=== PATIENT | female | born 1940 | race Caucasian/White ===

== ENCOUNTER 2016-07-09 10:11 | Inpatient (IN) ==
[2016-07-09] MEDS ORDERED: Ondansetron 4 MG/2 ML VIAL IVP ONE (10:26)
--- NOTE | 2016-07-09 10:42 | Emergency Department Note ---
Disposition Clinical Impression: Pneumonia Qualifiers: Pneumonia type: due to unspecified organism Laterality: left Lung location: lower lobe of lung Qualified Code(s): J18.1 - Lobar pneumonia, unspecified organism UTI (urinary tract infection) Qualifiers: Urinary tract infection type: acute cystitis Hematuria presence: without hematuria Qualified Code(s): N30.00 - Acute cystitis without hematuria Disposition: Admitted As Inpatient Condition: Fair Referrals: NO,PCP [Primary Care Provider] - Forms: ED Satisfaction Letter Weakness HPI - General Chief complaint: ED Weakness Stated complaint: weakness Time Seen by Provider: 07/09/16 10:14 Source: patient, EMS Limitations: no limitations Nursing Notes Reviewed: Yes Vital Signs Reviewed: Yes - History of Present Illness HPI Narrative: Patient is a dialysis patient has missed her Saturday and Saturday appointments. She states that she was not feeling well on Saturday that she is just weak and tired so she did not go to that appointment. She began vomiting on Saturday and subsequently missed her Saturday appointment. She is presenting today with generalized weakness nausea and vomiting. Patient also reports a productive cough with a white sputum. Pain Scale: 0 - Related Data Home Medications Medication Instructions Recorded Confirmed Aspirin [Adult Low Dose Aspirin EC] 81 mg PO DAILY 08/09/15 09/07/15 Budesonide/Formoterol 160/4.5 2 puff IH BIDR 08/09/15 09/07/15 [Symbicort 160/4.5] Citalopram [CeleXA] 20 mg PO QAM 08/09/15 09/07/15 Ferrous Sulfate 325 mg PO QAM 08/09/15 09/07/15 Insulin NPH Hum/Reg Insulin Hm 10 unit SQ QPM 08/09/15 09/07/15 [Novolin 70-30 100 Unit/ml Vial] Insulin NPH Hum/Reg Insulin Hm 15 unit SQ QAM 08/09/15 09/07/15 [Novolin 70-30 100 Unit/ml Vial] Ipratropium/Albuterol Neb [Duoneb] 3 ml IH QID PRN 08/09/15 09/07/15 Nadolol [Corgard] 40 mg PO QAM 08/09/15 09/07/15 [place]-3/Dha/Epa/Fish Oil [Fish Oil 1 each PO QPM 03/15/16 04/13/16 1,000 mg Softgel] Oxycodone HCl [Oxaydo] 5 mg PO Q6H PRN 08/09/15 09/07/15 Pantoprazole Sodium [Protonix] 40 mg PO QAM 08/09/15 09/07/15 Pravastatin Sodium [Pravachol] 80 mg PO QAM 08/09/15 09/07/15 Thiamine HCl [Vitamin B-1] 50 mg PO QAM 08/09/15 09/07/15 Vitamin E Mixed [Vitamin E] 400 unit PO QPM 08/09/15 09/07/15 Previous Rx's Medication Instructions Recorded Amlodipine [Norvasc] 10 mg PO DAILY 30 Days 08/18/15 Calcitriol [Rocaltrol] 0.25 mcg PO MOWEFR #12 capsule 09/21/15 Calcium Acetate [Phos-LO] 667 mg PO TIDWM #90 capsule 09/21/15 Epoetin Man[place] [Procrit] 10,000 unit SQ 3XW vial 09/21/15 Allergies Allergy/AdvReac Type Severity Reaction Status Date / Time Cyclobenzaprine Allergy Hives Verified 07/09/16 13:39 [From Flexeril] levofloxacin [From Levaquin] Allergy Hives Verified 07/09/16 13:39 rofecoxib [From Vioxx] Allergy Hives Verified 07/09/16 13:39 Review of Systems: Patient appears tired and frequently does not answer any many questions. All systems ED: reviewed and negative except as stated. Constitutional: Reports: weakness (Generalized since Saturday). Denies: fever Cardiovascular: Reports: edema (Lower extremity). Denies: chest pain, syncope Respiratory: Reports: cough (Productive since this morning. Yellow sputum), dyspnea (Today.), sputum production Gastrointestinal: Reports: nausea, vomiting, hematochezia (One episode on Saturday). Denies: abdominal pain, diarrhea Genitourinary: Denies: urgency, frequency, hematuria (Patient states she does still make urine. She has no urinary complaints.) Musculoskeletal: Denies: back pain, neck pain Integumentary: Denies: rash Neurological: Denies: headache Past Medical History - Past Medical History Medical history: Reports: arthritis, asthma, CHF, coronary artery disease, DVT, diabetes, hyperlipidemia, hypertension, renal disease Surgical history: Reports: cataract, pacemaker/AICD, other Psychiatric history: Reports: no psych history - Social History Smoking Status: Former smoker Smokeless Tobacco Status: No Alcohol use: Reports: none Drug use: Reports: none Physical Exam Patient is tired appearing. - General Limitations: no limitations General appearance: alert, in no apparent distress - Head Head exam: atraumatic, normocephalic, normal inspection - Eye Eye exam: Present: normal appearance, PERRL, EOMI. Absent: scleral icterus - ENT ENT exam: normal exam, normal oropharynx, mucous membranes moist - Neck Neck exam: Present: normal inspection, full ROM, trachea midline. Absent: tenderness, lymphadenopathy - Chest Chest inspection: Present: normal inspection, symmetric chest wall rise - Respiratory Respiratory exam: Present: other (Rhonchi left lower lobe). Absent: respiratory distress - Cardiovascular Cardiovascular exam: Present: regular rate, normal rhythm, normal heart sounds - Abdominal Exam Abdominal exam: Present: soft, Non-Tender. Absent: tenderness, distention, guarding, rebound, rigidity, organomegaly - Extremities Exam Extremities exam: Present: normal capillary refill, pedal edema (Bilaterally). Absent: calf tenderness - Back Exam Back exam: Present: normal inspection, full ROM. Absent: tenderness - Neurological Exam Neurological exam: Present: alert - Psychiatric Psychiatric exam: Present: normal affect, normal mood - Skin Skin exam: Present: warm, dry, intact, normal color. Absent: rash, cyanosis Course Course Narrative: Patient resting in bed in no apparent distress. She is a hemodialysis patient and Mr. Saturday and Saturday appointments. States on Saturday she just felt weak and did not go. On Saturday she began to vomit. She is presenting now for the nausea and vomiting. After her arrived he advised that she was somewhat short of breath at home this morning. Her left lung lower lobe has significant rhonchi on auscultation. She does have a left lower lobe pneumonia on chest x-ray. She also has a UTI. Pt has poor peripheral IV access. We will place a port a cath, and begin antibiotics. - Reevaluation(s) Reevaluation #1: Patient has left lower lobe pneumonia. We will start her on antibiotics for healthcare acquired. She also has a UTI. We plan to admit patient. Time: 11:07 Reevaluation #2: Patient's potassium is high. She has missed the last 2 dialysis appointments. We will give patient albuterol as well as Kayexalate. We will admit patient. Time: 13:27 - Consultations Consultation #1: Discussed with Dr. Medina who has accepted patient in stable condition. He is made aware that the Hemoccult has not been collected while she is down here. We discussed the possibility of nurses on the floor collecting this and sending it. Time: 13:44 Vital Signs Temperature 97.9 F 07/09/16 10:13 Pulse Rate 68 07/09/16 10:13 Respiratory Rate 16 07/09/16 10:13 Blood Pressure 119/57 07/09/16 10:13 O2 Sat by Pulse Oximetry 93 L 07/09/16 10:13 Temperature 97.9 F 07/09/16 10:13 Pulse Rate 59 07/09/16 12:41 Respiratory Rate 16 07/09/16 12:41 Blood Pressure 134/78 07/09/16 12:41 O2 Sat by Pulse Oximetry 95 07/09/16 12:41 Oxygen Delivery Oxygen Delivery Nasal Cannula Weakness - Medical Records Medical records reviewed: Yes I reviewed the patient's medical records. - Lab Data Lab results reviewed: Yes I reviewed the patient's lab results. Result diagrams: 07/09/16 12:30 07/09/16 12:30 Lab Results 07/09/16 07/09/16 07/09/16 Range/Units 10:50 11:22 11:22 WBC (4.3-11.1) K/mcL RBC (3.82-4.97) M/mcL Hgb (11.5-15.4) g/dL Hct (35.3-44.9) % MCV (83.0-100.0) fL MCH (28.0-33.3) pg MCHC (31.6-35.5) g/dL RDW (11.5-14.5) % Plt Count (140-400) K/mcL MPV (9.4-12.4) fL Immature Gran % (0-4) % Seg Neutrophils % % Lymphocytes % % Monocytes % % Eosinophils % % Basophils % % Neutrophils # (1.6-8.9) K/mcL Lymphocytes # (0.6-4.6) K/mcL Monocytes # (0.0-1.3) K/mcL Eosinophils # (0.0-0.6) K/mcL Basophils # (0.0-0.2) K/mcL PT (9.4-12.1) Seconds INR APTT (26.0-36.0) Seconds Sodium (136-145) mEq/L Potassium (3.5-4.5) mEq/L Chloride (98-109) mEq/L Carbon Dioxide (19-29) mEq/L BUN (7-20) mg/dL Creatinine (0.57-1.11) mg/dL Est GFR ( Amer) (> 60) Est GFR (Non-Af Amer) (> 60) BUN/Creatinine Ratio (6-26) Glucose (70-99) mg/dL Calculated Osmolality (280-300) Lactic Acid (0.5-2.2) mmol/L Calcium (8.6-10.8) mg/dL Phosphorus (2.3-4.7) mg/dL Magnesium (1.6-2.6) mg/dL Total Bilirubin (0.2-1.2) mg/dL AST (5-34) Units/L ALT (0-55) Units/L Alkaline Phosphatase (38-126) Units/L Troponin I 0.02 (0-0.03) ng/mL Serum Total Protein (6.0-8.3) g/dL Albumin (3.5-5.0) g/dL Globulin (2.4-3.5) g/dL Albumin/Globulin Ratio (1.1-2.2) Urine Color Yellow (Yellow) Urine Clarity Turbid A (Clear) Urine pH 6.0 (5.0-8.0) pH Units Ur Specific [place] 1.012 (1.010-1.025) Urine Protein >=300 H (Neg-Trace) mg/dL Urine Glucose (UA) Normal (Normal) mg/dL Urine Ketones Trace H (Negative) mg/dL Urine Blood Large H (Negative) Urine Nitrite Negative (Negative) Urine Bilirubin Negative (Negative) Urine Urobilinogen Normal (Normal) mg/dL Ur Leukocyte Esterase Large H (Negative) Urine Microscopic RBC 30-50 H (0-3) per hpf Urine Microscopic WBC TNTC H (0-3) per hpf Ur Squamous Epith Cells Many H (None-Few) per lpf Urine Bacteria Many H (None-Few) per hpf Hyaline Casts Test Not Performed Urine Yeast Test Not Performed Ur Culture Indicated? YES A (NO) Specimen Rejected Clotted 07/09/16 07/09/16 07/09/16 Range/Units 12:30 12:30 12:30 WBC 19.2 H (4.3-11.1) K/mcL RBC 3.38 L (3.82-4.97) M/mcL Hgb 11.6 (11.5-15.4) g/dL Hct 35.8 (35.3-44.9) % MCV 105.9 H (83.0-100.0) fL MCH 34.3 H (28.0-33.3) pg MCHC 32.4 (31.6-35.5) g/dL RDW 13.2 (11.5-14.5) % Plt Count 269 (140-400) K/mcL MPV 9.5 (9.4-12.4) fL Immature Gran % 0.6 (0-4) % Seg Neutrophils % 87.2 % Lymphocytes % 5.2 % Monocytes % 4.9 % Eosinophils % 1.9 % Basophils % 0.2 % Neutrophils # 16.8 H (1.6-8.9) K/mcL Lymphocytes # 1.0 (0.6-4.6) K/mcL Monocytes # 0.9 (0.0-1.3) K/mcL Eosinophils # 0.4 (0.0-0.6) K/mcL Basophils # 0.0 (0.0-0.2) K/mcL PT (9.4-12.1) Seconds INR APTT (26.0-36.0) Seconds Sodium 126 L (136-145) mEq/L Potassium 6.9 H* (3.5-4.5) mEq/L Chloride 88 L (98-109) mEq/L Carbon Dioxide 18 L (19-29) mEq/L BUN 107 H (7-20) mg/dL Creatinine 8.74 H (0.57-1.11) mg/dL Est GFR ( Amer) 5 L (> 60) Est GFR (Non-Af Amer) 4 L (> 60) BUN/Creatinine Ratio 12 (6-26) Glucose 70 (70-99) mg/dL Calculated Osmolality 294 (280-300) Lactic Acid 0.2 L (0.5-2.2) mmol/L Calcium 9.0 (8.6-10.8) mg/dL Phosphorus 8.6 H (2.3-4.7) mg/dL Magnesium 2.4 (1.6-2.6) mg/dL Total Bilirubin 0.6 (0.2-1.2) mg/dL AST 16 (5-34) Units/L ALT 20 (0-55) Units/L Alkaline Phosphatase 111 (38-126) Units/L Troponin I (0-0.03) ng/mL Serum Total Protein 6.9 (6.0-8.3) g/dL Albumin 2.9 L (3.5-5.0) g/dL Globulin 4.0 H (2.4-3.5) g/dL Albumin/Globulin Ratio 0.7 L (1.1-2.2) Urine Color (Yellow) Urine Clarity (Clear) Urine pH (5.0-8.0) pH Units Ur Specific [place] (1.010-1.025) Urine Protein (Neg-Trace) mg/dL Urine Glucose (UA) (Normal) mg/dL Urine Ketones (Negative) mg/dL Urine Blood (Negative) Urine Nitrite (Negative) Urine Bilirubin (Negative) Urine Urobilinogen (Normal) mg/dL Ur Leukocyte Esterase (Negative) Urine Microscopic RBC (0-3) per hpf Urine Microscopic WBC (0-3) per hpf Ur Squamous Epith Cells (None-Few) per lpf Urine Bacteria (None-Few) per hpf Hyaline Casts Urine Yeast Ur Culture Indicated? (NO) Specimen Rejected 07/09/16 Range/Units 12:30 WBC (4.3-11.1) K/mcL RBC (3.82-4.97) M/mcL Hgb (11.5-15.4) g/dL Hct (35.3-44.9) % MCV (83.0-100.0) fL MCH (28.0-33.3) pg MCHC (31.6-35.5) g/dL RDW (11.5-14.5) % Plt Count (140-400) K/mcL MPV (9.4-12.4) fL Immature Gran % (0-4) % Seg Neutrophils % % Lymphocytes % % Monocytes % % Eosinophils % % Basophils % % Neutrophils # (1.6-8.9) K/mcL Lymphocytes # (0.6-4.6) K/mcL Monocytes # (0.0-1.3) K/mcL Eosinophils # (0.0-0.6) K/mcL Basophils # (0.0-0.2) K/mcL PT 10.6 (9.4-12.1) Seconds INR 1.0 APTT 33.0 (26.0-36.0) Seconds Sodium (136-145) mEq/L Potassium (3.5-4.5) mEq/L Chloride (98-109) mEq/L Carbon Dioxide (19-29) mEq/L BUN (7-20) mg/dL Creatinine (0.57-1.11) mg/dL Est GFR ( Amer) (> 60) Est GFR (Non-Af Amer) (> 60) BUN/Creatinine Ratio (6-26) Glucose (70-99) mg/dL Calculated Osmolality (280-300) Lactic Acid (0.5-2.2) mmol/L Calcium (8.6-10.8) mg/dL Phosphorus (2.3-4.7) mg/dL Magnesium (1.6-2.6) mg/dL Total Bilirubin (0.2-1.2) mg/dL AST (5-34) Units/L ALT (0-55) Units/L Alkaline Phosphatase (38-126) Units/L Troponin I (0-0.03) ng/mL Serum Total Protein (6.0-8.3) g/dL Albumin (3.5-5.0) g/dL Globulin (2.4-3.5) g/dL Albumin/Globulin Ratio (1.1-2.2) Urine Color (Yellow) Urine Clarity (Clear) Urine pH (5.0-8.0) pH Units Ur Specific [place] (1.010-1.025) Urine Protein (Neg-Trace) mg/dL Urine Glucose (UA) (Normal) mg/dL Urine Ketones (Negative) mg/dL Urine Blood (Negative) Urine Nitrite (Negative) Urine Bilirubin (Negative) Urine Urobilinogen (Normal) mg/dL Ur Leukocyte Esterase (Negative) Urine Microscopic RBC (0-3) per hpf Urine Microscopic WBC (0-3) per hpf Ur Squamous Epith Cells (None-Few) per lpf Urine Bacteria (None-Few) per hpf Hyaline Casts Urine Yeast Ur Culture Indicated? (NO) Specimen Rejected - Radiology Data Radiology results reviewed: Yes I reviewed the patient's radiology results. - EKG Data EKG attestation: Yes I reviewed and interpreted this EKG. EKG results narrative: Atrially paced EKG. Reticular rate of 59. GA interval is 235. QRS duration is 117. QT is 457. QTC is 457. No ST elevation or depression noted mildly peaked T waves noted. No signs of acute ischemia. T waves are increased in amplitude since previous EKG dated 09/06/2015.
[2016-07-09 10:58] LABS: Bilirubin,Urine Negative (Negative); Blood,Urine Large (Negative); Clarity,Urine Turbid (Clear); Color,Urine Yellow (Yellow); Glucose,Urine (UA) Normal (Normal); Ketones,Urine Trace mg/dL (Negative); Leukocyte Esterase,Urine Large (Negative); Nitrite,Urine Negative (Negative); Protein,Urine >=300 mg/dL (Neg-Trace); Specific Gravity,Urine 1.012 (1.010-1.025); Urobilinogen,Urine Normal (Normal)
[2016-07-09 11:00] LABS: Bacteria,Urine Many per hpf (None-Few); RBC,Urine 30-50 per hpf (0-3); Squamous Epithelial Cell,Urine Many per lpf (None-Few); WBC,Urine TNTC per hpf (0-3)
[2016-07-09] MEDS ORDERED: Tdap (Boostrix) Vaccine 0.5 ML SYRINGE IM ONE (11:00)
[2016-07-09] MEDS ORDERED: Vancomycin 1,250 MG in D5% in Water 250 ML IVPB ONE (11:04)
[2016-07-09] MEDS ORDERED: Piperacillin/Tazobactam 3.375 GM in D5% in Water (Mini-Bag+) 100 ML IVPB ONE (11:04)
[2016-07-09] MEDS ORDERED: Levofloxacin 750 MG/150 ML 750 MG/150 ML BAG IVPB ONE (11:04)
--- NOTE | 2016-07-09 11:43 | Emergency Department Note ---
Disposition Clinical Impression: Pneumonia, UTI (urinary tract infection) Disposition: Admitted As Inpatient Condition: Fair General Adult HPI - General Chief complaint: ED Weakness Stated complaint: weakness Time Seen by Provider: 07/09/16 10:14 Source: patient, EMS Limitations: no limitations - History of Present Illness Pain Scale: 0 - Related Data Home Medications Medication Instructions Recorded Confirmed Aspirin [Adult Low Dose Aspirin EC] 81 mg PO DAILY 08/09/15 07/09/16 Budesonide/Formoterol 160/4.5 2 puff IH BIDR 08/09/15 07/09/16 [Symbicort 160/4.5] Citalopram [CeleXA] 20 mg PO QAM 08/09/15 07/09/16 Ferrous Sulfate 325 mg PO QAM 08/09/15 07/09/16 Insulin NPH Hum/Reg Insulin Hm 10 unit SQ QPM 08/09/15 07/09/16 [Novolin 70-30 100 Unit/ml Vial] Insulin NPH Hum/Reg Insulin Hm 15 unit SQ QAM 08/09/15 07/09/16 [Novolin 70-30 100 Unit/ml Vial] Ipratropium/Albuterol Neb [Duoneb] 3 ml IH QID PRN 08/09/15 07/09/16 Nadolol [Corgard] 40 mg PO QAM 08/09/15 07/09/16 [place]-3/Dha/Epa/Fish Oil [Fish Oil 1 each PO QPM 08/09/15 07/09/16 1,000 mg Softgel] Oxycodone HCl [Oxaydo] 5 mg PO Q6H PRN 08/09/15 07/09/16 Pantoprazole Sodium [Protonix] 40 mg PO QAM 08/09/15 07/09/16 Pravastatin Sodium [Pravachol] 80 mg PO QAM 08/09/15 07/09/16 Thiamine HCl [Vitamin B-1] 50 mg PO QAM 08/09/15 07/09/16 Vitamin E Mixed [Vitamin E] 400 unit PO QPM 08/09/15 07/09/16 Previous Rx's Medication Instructions Recorded Amlodipine [Norvasc] 10 mg PO DAILY 30 Days 08/18/15 Calcitriol [Rocaltrol] 0.25 mcg PO MOWEFR #12 capsule 09/21/15 Calcium Acetate [Phos-LO] 667 mg PO TIDWM #90 capsule 09/21/15 Epoetin Manolo [Procrit] 10,000 unit SQ 3XW vial 09/21/15 Allergies Allergy/AdvReac Type Severity Reaction Status Date / Time Cyclobenzaprine Allergy Hives Verified 07/09/16 13:39 [From Flexeril] levofloxacin [From Levaquin] Allergy Hives Verified 07/09/16 13:39 rofecoxib [From Vioxx] Allergy Hives Verified 07/09/16 13:39 Past Medical History - Past Medical History Medical history: Reports: arthritis, asthma, CHF, coronary artery disease, DVT, diabetes, hyperlipidemia, hypertension, renal disease Surgical history: Reports: cataract, pacemaker/AICD, other Psychiatric history: Reports: no psych history - Social History Smoking Status: Former smoker Smokeless Tobacco Status: No Alcohol use: Reports: none Drug use: Reports: none Physical Exam - General Limitations: no limitations General appearance: alert Course - Reevaluation(s) Reevaluation #1: I saw the patient with the resident, Dr. Burr. Patient presents with generalized weakness. On exam we hear a moist cough. Her lungs are coarse breath sounds. Her vital signs are okay but she looks like she does not feel well. She complains of shortness of breath. Workup shows a pneumonia on the chest x-ray. This is consistent with her physical presentation. We started antibiotics. We need to arrange admission. Time: 11:42 Reevaluation #2: The hospitalist came down to the emergency department and assumed care of the patient. He ordered some extra labs and a repeat EKG. He spoke with dialysis and nephrology and was able to arrange emergent dialysis for this hyperkalemia and hypertension. Patient was transported over to emergent in-house dialysis. At the time she left she appeared a bit short of breath but was alert and oriented and had a systolic blood pressure over 90. We had to get the blood pressure from the left wrist because that was the only available spot. Time: 15:27 Vital Signs Temperature 97.9 F 07/09/16 10:13 Pulse Rate 68 07/09/16 10:13 Respiratory Rate 16 07/09/16 10:13 Blood Pressure 119/57 07/09/16 10:13 O2 Sat by Pulse Oximetry 93 L 07/09/16 10:13 Temperature 97.9 F 07/09/16 10:13 Pulse Rate 74 07/09/16 14:02 Respiratory Rate 16 07/09/16 15:19 Blood Pressure 92/61 07/09/16 15:19 O2 Sat by Pulse Oximetry 94 L 07/09/16 14:02 Oxygen Delivery Oxygen Delivery Nasal Cannula Medical Decision Making - Lab Data Result diagrams: 07/09/16 12:30 07/09/16 12:30 Lab Results 07/09/16 07/09/16 07/09/16 Range/Units 10:50 11:22 11:22 WBC (4.3-11.1) K/mcL RBC (3.82-4.97) M/mcL Hgb (11.5-15.4) g/dL Hct (35.3-44.9) % MCV (83.0-100.0) fL MCH (28.0-33.3) pg MCHC (31.6-35.5) g/dL RDW (11.5-14.5) % Plt Count (140-400) K/mcL MPV (9.4-12.4) fL Immature Gran % (0-4) % Seg Neutrophils % % Lymphocytes % % Monocytes % % Eosinophils % % Basophils % % Neutrophils # (1.6-8.9) K/mcL Lymphocytes # (0.6-4.6) K/mcL Monocytes # (0.0-1.3) K/mcL Eosinophils # (0.0-0.6) K/mcL Basophils # (0.0-0.2) K/mcL PT (9.4-12.1) Seconds INR APTT (26.0-36.0) Seconds Sodium (136-145) mEq/L Potassium (3.5-4.5) mEq/L Chloride (98-109) mEq/L Carbon Dioxide (19-29) mEq/L BUN (7-20) mg/dL Creatinine (0.57-1.11) mg/dL Est GFR ( Amer) (> 60) Est GFR (Non-Af Amer) (> 60) BUN/Creatinine Ratio (6-26) Glucose (70-99) mg/dL Calculated Osmolality (280-300) Lactic Acid (0.5-2.2) mmol/L Calcium (8.6-10.8) mg/dL Phosphorus (2.3-4.7) mg/dL Magnesium (1.6-2.6) mg/dL Total Bilirubin (0.2-1.2) mg/dL AST (5-34) Units/L ALT (0-55) Units/L Alkaline Phosphatase (38-126) Units/L Troponin I 0.02 (0-0.03) ng/mL Serum Total Protein (6.0-8.3) g/dL Albumin (3.5-5.0) g/dL Globulin (2.4-3.5) g/dL Albumin/Globulin Ratio (1.1-2.2) Urine Color Yellow (Yellow) Urine Clarity Turbid A (Clear) Urine pH 6.0 (5.0-8.0) pH Units Ur Specific [place] 1.012 (1.010-1.025) Urine Protein >=300 H (Neg-Trace) mg/dL Urine Glucose (UA) Normal (Normal) mg/dL Urine Ketones Trace H (Negative) mg/dL Urine Blood Large H (Negative) Urine Nitrite Negative (Negative) Urine Bilirubin Negative (Negative) Urine Urobilinogen Normal (Normal) mg/dL Ur Leukocyte Esterase Large H (Negative) Urine Microscopic RBC 30-50 H (0-3) per hpf Urine Microscopic WBC TNTC H (0-3) per hpf Ur Squamous Epith Cells Many H (None-Few) per lpf Urine Bacteria Many H (None-Few) per hpf Hyaline Casts Test Not Performed Urine Yeast Test Not Performed Ur Culture Indicated? YES A (NO) Specimen Rejected Clotted 07/09/16 07/09/16 07/09/16 Range/Units 12:30 12:30 12:30 WBC 19.2 H (4.3-11.1) K/mcL RBC 3.38 L (3.82-4.97) M/mcL Hgb 11.6 (11.5-15.4) g/dL Hct 35.8 (35.3-44.9) % MCV 105.9 H (83.0-100.0) fL MCH 34.3 H (28.0-33.3) pg MCHC 32.4 (31.6-35.5) g/dL RDW 13.2 (11.5-14.5) % Plt Count 269 (140-400) K/mcL MPV 9.5 (9.4-12.4) fL Immature Gran % 0.6 (0-4) % Seg Neutrophils % 87.2 % Lymphocytes % 5.2 % Monocytes % 4.9 % Eosinophils % 1.9 % Basophils % 0.2 % Neutrophils # 16.8 H (1.6-8.9) K/mcL Lymphocytes # 1.0 (0.6-4.6) K/mcL Monocytes # 0.9 (0.0-1.3) K/mcL Eosinophils # 0.4 (0.0-0.6) K/mcL Basophils # 0.0 (0.0-0.2) K/mcL PT (9.4-12.1) Seconds INR APTT (26.0-36.0) Seconds Sodium 126 L (136-145) mEq/L Potassium 6.9 H* (3.5-4.5) mEq/L Chloride 88 L (98-109) mEq/L Carbon Dioxide 18 L (19-29) mEq/L BUN 107 H (7-20) mg/dL Creatinine 8.74 H (0.57-1.11) mg/dL Est GFR ( Amer) 5 L (> 60) Est GFR (Non-Af Amer) 4 L (> 60) BUN/Creatinine Ratio 12 (6-26) Glucose 70 (70-99) mg/dL Calculated Osmolality 294 (280-300) Lactic Acid 0.2 L (0.5-2.2) mmol/L Calcium 9.0 (8.6-10.8) mg/dL Phosphorus 8.6 H (2.3-4.7) mg/dL Magnesium 2.4 (1.6-2.6) mg/dL Total Bilirubin 0.6 (0.2-1.2) mg/dL AST 16 (5-34) Units/L ALT 20 (0-55) Units/L Alkaline Phosphatase 111 (38-126) Units/L Troponin I (0-0.03) ng/mL Serum Total Protein 6.9 (6.0-8.3) g/dL Albumin 2.9 L (3.5-5.0) g/dL Globulin 4.0 H (2.4-3.5) g/dL Albumin/Globulin Ratio 0.7 L (1.1-2.2) Urine Color (Yellow) Urine Clarity (Clear) Urine pH (5.0-8.0) pH Units Ur Specific [place] (1.010-1.025) Urine Protein (Neg-Trace) mg/dL Urine Glucose (UA) (Normal) mg/dL Urine Ketones (Negative) mg/dL Urine Blood (Negative) Urine Nitrite (Negative) Urine Bilirubin (Negative) Urine Urobilinogen (Normal) mg/dL Ur Leukocyte Esterase (Negative) Urine Microscopic RBC (0-3) per hpf Urine Microscopic WBC (0-3) per hpf Ur Squamous Epith Cells (None-Few) per lpf Urine Bacteria (None-Few) per hpf Hyaline Casts Urine Yeast Ur Culture Indicated? (NO) Specimen Rejected 07/09/16 Range/Units 12:30 WBC (4.3-11.1) K/mcL RBC (3.82-4.97) M/mcL Hgb (11.5-15.4) g/dL Hct (35.3-44.9) % MCV (83.0-100.0) fL MCH (28.0-33.3) pg MCHC (31.6-35.5) g/dL RDW (11.5-14.5) % Plt Count (140-400) K/mcL MPV (9.4-12.4) fL Immature Gran % (0-4) % Seg Neutrophils % % Lymphocytes % % Monocytes % % Eosinophils % % Basophils % % Neutrophils # (1.6-8.9) K/mcL Lymphocytes # (0.6-4.6) K/mcL Monocytes # (0.0-1.3) K/mcL Eosinophils # (0.0-0.6) K/mcL Basophils # (0.0-0.2) K/mcL PT 10.6 (9.4-12.1) Seconds INR 1.0 APTT 33.0 (26.0-36.0) Seconds Sodium (136-145) mEq/L Potassium (3.5-4.5) mEq/L Chloride (98-109) mEq/L Carbon Dioxide (19-29) mEq/L BUN (7-20) mg/dL Creatinine (0.57-1.11) mg/dL Est GFR ( Amer) (> 60) Est GFR (Non-Af Amer) (> 60) BUN/Creatinine Ratio (6-26) Glucose (70-99) mg/dL Calculated Osmolality (280-300) Lactic Acid (0.5-2.2) mmol/L Calcium (8.6-10.8) mg/dL Phosphorus (2.3-4.7) mg/dL Magnesium (1.6-2.6) mg/dL Total Bilirubin (0.2-1.2) mg/dL AST (5-34) Units/L ALT (0-55) Units/L Alkaline Phosphatase (38-126) Units/L Troponin I (0-0.03) ng/mL Serum Total Protein (6.0-8.3) g/dL Albumin (3.5-5.0) g/dL Globulin (2.4-3.5) g/dL Albumin/Globulin Ratio (1.1-2.2) Urine Color (Yellow) Urine Clarity (Clear) Urine pH (5.0-8.0) pH Units Ur Specific [place] (1.010-1.025) Urine Protein (Neg-Trace) mg/dL Urine Glucose (UA) (Normal) mg/dL Urine Ketones (Negative) mg/dL Urine Blood (Negative) Urine Nitrite (Negative) Urine Bilirubin (Negative) Urine Urobilinogen (Normal) mg/dL Ur Leukocyte Esterase (Negative) Urine Microscopic RBC (0-3) per hpf Urine Microscopic WBC (0-3) per hpf Ur Squamous Epith Cells (None-Few) per lpf Urine Bacteria (None-Few) per hpf Hyaline Casts Urine Yeast Ur Culture Indicated? (NO) Specimen Rejected Attestation Statement - Attestation Attestation: I, Dr. Barahona, examined this patient [id number] and my medical decision- making was reviewed with Dr. Burr, Resident Physician. I agree with the documented findings, disposition and treatment plan as described except to the extent set forth below. Please see my progress notes for details.
[2016-07-09] MEDS ORDERED: Lidocaine -MPF 1% 2 ML VIAL ID PRN (12:26)
[2016-07-09 12:41] LABS: Basophils % 0.2 %; Eosinophils # 0.4 K/mcL (0.0-0.6); Eosinophils % 1.9 %; Hematocrit 35.8 % (35.3-44.9); Hemoglobin 11.6 g/dL (11.5-15.4); Immature Granulocytes % 0.6 % (0-4); Lymphocytes % 5.2 %; Mean Corpuscular HGB Conc 32.4 g/dL (31.6-35.5); Mean Corpuscular Hemoglobin 34.3 pg (28.0-33.3); Mean Corpuscular Volume 105.9 fL (83.0-100.0); Mean Platelet Volume 9.5 fL (9.4-12.4); Monocytes # 0.9 K/mcL (0.0-1.3); Monocytes % 4.9 %; Neutrophils # 16.8 K/mcL (1.6-8.9); Platelet Count 269 K/mcL (140-400); Red Blood Count 3.38 M/mcL (3.82-4.97); Red Cell Distribution Width 13.2 % (11.5-14.5); Segmented Neutrophils % 87.2 %
[2016-07-09 12:59] LABS: Albumin 2.9 g/dL (3.5-5.0); Albumin/Globulin Ratio 0.7 (1.1-2.2); Bilirubin,Total 0.6 mg/dL (0.2-1.2); Magnesium 2.4 mg/dL (1.6-2.6); Phosphorous 8.6 mg/dL (2.3-4.7); Total Protein 6.9 g/dL (6.0-8.3)
[2016-07-09 13:04] LABS: Potassium 6.9 mEq/L (3.5-4.5); Prothrombin Time 10.6 Seconds (9.4-12.1)
[2016-07-09] MEDS ORDERED: Albuterol 2.5 MG/3 ML NEBULIZER IH ONE (13:08)
[2016-07-09] MEDS ORDERED: Naloxone 0.4 MG/ML INJ IVP PRN (15:07)
[2016-07-09] MEDS ORDERED: 0.9 % Sodium Chloride 500 ML IVC ONE (15:10)
[2016-07-09] MEDS ORDERED: 0.9 % Sodium Chloride 250 ML IV PRN (15:22)
[2016-07-09] MEDS ORDERED: 0.9 % Sodium Chloride 1,000 ML PRIME SCH (15:30)
[2016-07-09] MEDS ORDERED: Dextrose Gel 15 GM PO PRN ×2 (15:40)
[2016-07-09] MEDS ORDERED: D5% in Water 1,000 ML IV PRN (15:40)
[2016-07-09] MEDS ORDERED: *HR* Dextrose 50 % in Water (Syg) 50 ML SYRINGE IVP PRN (15:40)
[2016-07-09] MEDS ORDERED: Vancomycin 1 EACH in D5% in Water 250 ML IVPB SCH (16:00)
[2016-07-09] MEDS ORDERED: Cefepime HCl 1,000 MG in D5% in Water (Mini-Bag+) 100 ML IVPB ONE (16:00)
--- NOTE | 2016-07-09 16:36 | Internal Med History&Physical ---
Date of Encounter: 07/09/16 Time of Encounter: 15:53 Assessment and Plan (1) Pneumonia due to Gram-negative bacteria Current visit: Yes Status: Acute We will treat her with renally adjusted cefepime dosing for healthcare associated pneumonia. I cannot exclude MRSA and therefore will add vancomycin. Follow-up blood culture and sensitivities. (2) End-stage renal disease on hemodialysis Current visit: Yes Status: Acute Consult nephrology. I discussed the case with the coin machine service repairer seasonal clerk. Continue with hemodialysis. (3) Metabolic encephalopathy Current visit: Yes Status: Acute Nothing by mouth. Aspiration precautions. Fall precautions. (4) Uremia syndrome Current visit: Yes Status: Acute Patient is more somnolent on the has been complaining of nausea and decreased appetite all consistent with uremia and therefore she requires emergent hemodialysis. Hemodialysis was arranged emergently for this afternoon. During hemodialysis he she had an episode of hypotension and unresponsiveness and a rapid response was called. Blood glucose was 90 blood pressure initially was in the 80s systolic. I have given her 1 small bolus of normal saline and her blood pressure picked up and her mental status improved significantly to the point where she could recognize family members. Patient at that time was protecting her airway and did not require invasive ventilation. I decided to complete the dialysis session and monitor the patient closely on stepdown. Mrs. Hernandez is currently unstable and there is high probability of emergent and significant clinical decompensation with potential impairment of organ function including cardiovascular system and respiratory system. I have performed 55 minutes of critical care time which involved decision making of high complexity to assess, manipulate, and support vital organ system, in order to prevent further life threatening deterioration of the patient's condition. The time involved in the performance of any procedures was not counted toward critical care time. Critical care time was spent evaluating the patient several times throughout the day, reviewing EKGs, telemetry tracing, imaging studies and laboratory data, discussing the case with the emergency department physicians, and consultants, ordering medications and reevaluating for clinical response and making adjustments to her medication regimen. (5) DVT prophylaxis Current visit: No Status: Acute We will use heparin subcutaneous (6) Diabetes mellitus type 2, insulin dependent Current visit: No Status: Chronic Insulin sliding scale. Fingerstick blood glucose every 4 hours. (7) Essential (primary) hypertension Current visit: No Status: Chronic Hold her antihypertensives for now due to relative hypotension. Internal Medicine - H&P: HPI Chief complaint: Nausea and vomiting Admitted From: Emergency Dept Plans for Post Hospital Care: Home History of present illness: Ms. Hernandez is a 76 year old female with multiple medical comorbidities who was brought to the hospital for nausea vomiting and generalized weakness. She has a history of end-stage renal disease on hemodialysis Saturday however she is missed hemodialysis on Saturday and today again on Saturday because she was too weak and nauseated to go to dialysis. She presented to the hospital and she is currently somnolent and therefore history is limited. Additional history is obtained from the patient's . The patient has been having nausea and nonbloody vomitus and at baseline she is verbal and communicative however throughout the day today she became more somnolent and obtunded. Review of systems could not be obtained due to altered mental status Family history reviewed and found to be noncontributory to this acute presentation. Past Med Surg Social Fam HX - Past Medical History Medical history: arthritis, asthma, CHF, coronary artery disease, DVT, diabetes , hyperlipidemia, hypertension, renal disease Psychiatric history: no psych history - Past Surgical History Surgical History: cataract, pacemaker/AICD, other - Social History Smoking Status: Former smoker Smokeless Tobacco Status: No Alcohol use: none Drug use: none - Family History Mother Living Status: Hx Family Cardiac Disorders: Yes Hx Family Respiratory Disorders: No Hx Family Cancer: Yes (skin cancer) Hx Family GI Disorders: No Hx Family Endocrine Disorder: Yes (DM) Hx Family Neuromuscular Disorders: No Hx Family Neurologic Disorders: No Hx Family HEENT Disorders: No Hx Family Autoimmune Disorders: No Father Living Status: Hx Family Cardiac Disorders: No Hx Family Respiratory Disorders: Yes (black lung disease) Hx Family Cancer: No Hx Family GI Disorders: No Hx Family Endocrine Disorder: No Hx Family Neuromuscular Disorders: No Hx Family Neurologic Disorders: No Hx Family HEENT Disorders: No Hx Family Autoimmune Disorders: No Sister Living Status: Still Living Hx Family Cardiac Disorders: No Hx Family Respiratory Disorders: No Hx Family Cancer: No Hx Family GI Disorders: No Hx Family Endocrine Disorder: Yes (DM) Hx Family Neuromuscular Disorders: No Hx Family Neurologic Disorders: No Hx Family HEENT Disorders: No Hx Family Autoimmune Disorders: No Internal Medicine - H&P: Meds Aspirin [Adult Low Dose Aspirin EC] 81 mg PO DAILY 08/09/15 [History] Budesonide/Formoterol 160/4.5 [Symbicort 160/4.5] 2 puff IH BIDR 08/09/15 [ History] Citalopram [CeleXA] 20 mg PO QAM 08/09/15 [History] Ferrous Sulfate 325 mg PO QAM 08/09/15 [History] Insulin NPH Hum/Reg Insulin Hm [Novolin 70-30 100 Unit/ml Vial] 10 unit SQ QPM 08/09/15 [History] Insulin NPH Hum/Reg Insulin Hm [Novolin 70-30 100 Unit/ml Vial] 15 unit SQ QAM 08/09/15 [History] Ipratropium/Albuterol Neb [Duoneb] 3 ml IH QID PRN 08/09/15 [History] Nadolol [Corgard] 40 mg PO QAM 08/09/15 [History] Almyra-3/Dha/Epa/Fish Oil [Fish Oil 1,000 mg Softgel] 1 each PO QPM 08/09/15 [ History] Oxycodone HCl [Oxaydo] 5 mg PO Q6H PRN 08/09/15 [History] Pantoprazole Sodium [Protonix] 40 mg PO QAM 08/09/15 [History] Pravastatin Sodium [Pravachol] 80 mg PO QAM 08/09/15 [History] Thiamine HCl [Vitamin B-1] 50 mg PO QAM 08/09/15 [History] Vitamin E Mixed [Vitamin E] 400 unit PO QPM 08/09/15 [History] Amlodipine [Norvasc] 10 mg PO DAILY 30 Days 08/18/15 [Rx] Calcitriol [Rocaltrol] 0.25 mcg PO MOWEFR #12 capsule 09/21/15 [Rx] Calcium Acetate [Phos-LO] 667 mg PO TIDWM #90 capsule 09/21/15 [Rx] Epoetin Manolo [Procrit] 10,000 unit SQ 3XW vial 09/21/15 [Rx] Allergies Cyclobenzaprine [From Flexeril] Allergy (Verified 07/09/16 13:39) Hives levofloxacin [From Levaquin] Allergy (Verified 07/09/16 13:39) Hives rofecoxib [From Vioxx] Allergy (Verified 07/09/16 13:39) Hives All Systems PM: A 10-system review of systems was performed and is negative for pertinent findings except as documented above in the HPI. - Constitutional Vitals: Temp Pulse Resp BP Pulse Ox 97.9 F 74 16 92/61 94 L 07/09/16 10:13 07/09/16 14:02 07/09/16 15:19 07/09/16 15:19 07/09/16 14:02 General appearance: Present: A&O X 1 - Eye Eye exam: Present: PERRL, conjuntiva pink, sclera anicteric Pupils: Present: PERRL - Respiratory Respiratory exam: Present: CTAB, rales, wheezes. Absent: accessory muscle use, rhonchi - Cardiovascular Cardiovascular exam: Present: RRR, +S1, +S2. Absent: diastolic murmur, gallop, rubs, systolic murmur - GI/Abdominal GI/Abdominal exam: Present: normal bowel sounds, soft, no peritoneal signs. Absent: distended, tenderness - Extremities Exam Extremities exam: Present: warm, radial pulses palpable and symetrical. Absent : calf tenderness, cyanotic, pedal edema - Neurological Exam Neurological exam: Present: speech deficit. Absent: facial droop Additional comments: Somnolent arousable, answers appropriately to yes no questions but does not cooperate for a neurological examination. - Skin Skin exam: Present: dry, intact Internal Med - H&P Results - Labs CBC & Chem 7: 07/09/16 12:30 07/09/16 12:30
[2016-07-09] MEDS: Ipratropium/Albuterol Neb 3 ML IH SCH ×2 (16:58→19:55)
[2016-07-09] MEDS ORDERED: Ondansetron 4 MG/2 ML VIAL ONE (17:21)
[2016-07-09] MEDS ORDERED: Ondansetron 4 MG/2 ML VIAL IV ONE (17:24)
[2016-07-09] MEDS: Pantoprazole 40 MG VIAL IVP SCH (18:34)
[2016-07-09] MEDS: *HR* Heparin 5,000 UNIT/ML VIAL SQ SCH (18:48)
[2016-07-09] MEDS: Insulin LISPRO 300 UNITS/3 ML VIAL SQ SCH (18:49)
[2016-07-09] MEDS ORDERED: *HR* OxyCODONE Immed Rel 5 MG TABLET PO ONE (22:55)
[2016-07-10] MEDS: Ipratropium/Albuterol Neb 3 ML IH SCH ×7 (00:08→23:48)
[2016-07-10] MEDS: Insulin LISPRO 300 UNITS/3 ML VIAL SQ SCH ×4 (00:17→16:20)
[2016-07-10 06:33] LABS: Basophils % 0.2 %; Eosinophils # 0.1 K/mcL (0.0-0.6); Eosinophils % 0.7 %; Hematocrit 26.3 % (35.3-44.9); Immature Granulocytes % 0.6 % (0-4); Lymphocytes # 1.4 K/mcL (0.6-4.6); Lymphocytes % 8.5 %; Mean Corpuscular HGB Conc 32.3 g/dL (31.6-35.5); Mean Corpuscular Hemoglobin 34.1 pg (28.0-33.3); Mean Corpuscular Volume 105.6 fL (83.0-100.0); Mean Platelet Volume 10.1 fL (9.4-12.4); Monocytes # 1.7 K/mcL (0.0-1.3); Monocytes % 10.7 %; Neutrophils # 12.7 K/mcL (1.6-8.9); Platelet Count 190 K/mcL (140-400); Red Blood Count 2.49 M/mcL (3.82-4.97); Red Cell Distribution Width 13.5 % (11.5-14.5); Segmented Neutrophils % 79.3 %
[2016-07-10 06:40] LABS: Hemoglobin 8.5 g/dL (11.5-15.4)
[2016-07-10 06:47] LABS: Calcium 7.8 mg/dL (8.6-10.8); Magnesium 1.7 mg/dL (1.6-2.6)
--- NOTE | 2016-07-10 07:50 | Nephrology Consult Note ---
Date of Encounter: 07/10/16 Time of Encounter: 07:47 Assessment and Plan (1) End-stage renal disease on hemodialysis Current Visit: Yes Status: Acute Patient presented with missing her healthcare management consultant dialysis treatments and subsequent hyperkalemia. She underwent urgent dialysis yesterday. This morning she is stable from renal perspective. Her hemoglobin is 8.5 and she will be maintained on Aranesp. She runs chronically low blood pressures and has a history of hypotension during dialysis. She will be maintained on midodrine. She has a clinical picture left-sided pneumonia and is currently on antibiotics. (2) Hyperkalemia Current Visit: Yes Status: Acute (3) Anemia, chronic disease Current Visit: No Status: Acute (4) Community acquired pneumonia Current Visit: No Status: Acute History of Present Illness - History of Present Illness This is a 76-year-old female with end-stage renal disease who dialyzes injection every Saturday. Patient was not feeling well towards the end of last week. She developed nausea and vomiting on Saturday. She did not go to dialysis the previous Saturday. Because of progressive weakness she subsequently came to the hospital. Chest x-ray showed left sided pneumonia. Potassium was 6.9. White count was elevated at 16.1. Patient was emergently dialyzed yesterday. She did sustain hypotension during dialysis that responded to IV fluids and a decrease in her ultrafiltration rate. This morning she says she is feeling better. She is alert and oriented. She does describe a cough with sputum production. She has chronic shortness of breath. She states that her shortness of breath is no worse than usual. She denies any chest pain. She does have chronic lower extremity swelling but actually this is improved. She does have a history of hypotension on dialysis. She has been started on midodrine as an outpatient to try and support her blood pressure. Past Med Surg Social Fam HX - Past Medical History Medical history: arthritis, asthma, CHF, coronary artery disease, DVT, diabetes , hyperlipidemia, hypertension, renal disease Psychiatric history: no psych history - Past Surgical History Surgical History: cataract, pacemaker/AICD, other - Social History Smoking Status: Former smoker Smokeless Tobacco Status: No Alcohol use: none Drug use: none - Family History Mother Living Status: Hx Family Cardiac Disorders: Yes Hx Family Respiratory Disorders: No Hx Family Cancer: Yes (skin cancer) Hx Family GI Disorders: No Hx Family Endocrine Disorder: Yes (DM) Hx Family Neuromuscular Disorders: No Hx Family Neurologic Disorders: No Hx Family HEENT Disorders: No Hx Family Autoimmune Disorders: No Father Living Status: Hx Family Cardiac Disorders: No Hx Family Respiratory Disorders: Yes (black lung disease) Hx Family Cancer: No Hx Family GI Disorders: No Hx Family Endocrine Disorder: No Hx Family Neuromuscular Disorders: No Hx Family Neurologic Disorders: No Hx Family HEENT Disorders: No Hx Family Autoimmune Disorders: No Sister Living Status: Still Living Hx Family Cardiac Disorders: No Hx Family Respiratory Disorders: No Hx Family Cancer: No Hx Family GI Disorders: No Hx Family Endocrine Disorder: Yes (DM) Hx Family Neuromuscular Disorders: No Hx Family Neurologic Disorders: No Hx Family HEENT Disorders: No Hx Family Autoimmune Disorders: No Medications and Allergies Aspirin [Adult Low Dose Aspirin EC] 81 mg PO DAILY 08/09/15 [History] Budesonide/Formoterol 160/4.5 [Symbicort 160/4.5] 2 puff IH BIDR 08/09/15 [ History] Citalopram [CeleXA] 20 mg PO QAM 08/09/15 [History] Ferrous Sulfate 325 mg PO QAM 08/09/15 [History] Insulin NPH Hum/Reg Insulin Hm [Novolin 70-30 100 Unit/ml Vial] 10 unit SQ QPM 08/09/15 [History] Insulin NPH Hum/Reg Insulin Hm [Novolin 70-30 100 Unit/ml Vial] 15 unit SQ QAM 08/09/15 [History] Ipratropium/Albuterol Neb [Duoneb] 3 ml IH QID PRN 08/09/15 [History] Nadolol [Corgard] 40 mg PO QAM 08/09/15 [History] Hiller-3/Dha/Epa/Fish Oil [Fish Oil 1,000 mg Softgel] 1 each PO QPM 08/09/15 [ History] Oxycodone HCl [Oxaydo] 5 mg PO Q6H PRN 08/09/15 [History] Pantoprazole Sodium [Protonix] 40 mg PO QAM 08/09/15 [History] Pravastatin Sodium [Pravachol] 80 mg PO QAM 08/09/15 [History] Thiamine HCl [Vitamin B-1] 50 mg PO QAM 08/09/15 [History] Vitamin E Mixed [Vitamin E] 400 unit PO QPM 08/09/15 [History] Amlodipine [Norvasc] 10 mg PO DAILY 30 Days 08/18/15 [Rx] Calcitriol [Rocaltrol] 0.25 mcg PO MOWEFR #12 capsule 09/21/15 [Rx] Calcium Acetate [Phos-LO] 667 mg PO TIDWM #90 capsule 09/21/15 [Rx] Epoetin Manolo [Procrit] 10,000 unit SQ 3XW vial 09/21/15 [Rx] Allergies Cyclobenzaprine [From Flexeril] Allergy (Verified 07/09/16 13:39) Hives levofloxacin [From Levaquin] Allergy (Verified 07/09/16 13:39) Hives rofecoxib [From Vioxx] Allergy (Verified 07/09/16 13:39) Hives Review of Systems Constitutional: as per HPI, weakness Eyes: bilateral: blurred vision (patient denies), diplopia (patient denies) Nose, mouth and throat: no dizziness, no headache(s) Cardiovascular: as per HPI, dyspnea on exertion, edema Respiratory: cough, dyspnea on exertion Gastrointestinal: nausea, vomiting Musculoskeletal: no muscle weakness, no numbness Integumentary: no hirsutism, no striae Neurological: as per HPI, weakness Psychiatric: no depression, no difficulty concentrating Endocrine: as per HPI Hematologic/Lymphatic: no easy bruising, no lymphadenopathy Exam - Vital Signs Vital signs: Initial Vital Signs Temp Pulse Resp BP Pulse Ox 97.9 F 68 16 119/57 93 L 07/09/16 10:13 07/09/16 10:13 07/09/16 10:13 07/09/16 10:13 07/09/16 10:13 Vital Signs - Last 8 Hours Temp Pulse Resp BP Pulse Ox 07/10/16 07:20 99.4 F 74 18 84/32 93 L 07/10/16 04:56 99.9 F H 75 20 104/42 94 L 07/10/16 04:40 20 93 L 07/10/16 00:25 98.0 F 75 18 150/53 94 L 07/10/16 00:10 20 95 Intake and Output 07/09/16 07/09/16 07/10/16 15:59 23:59 07:59 Output Total 1562 / 1562 Balance -1562 / -1562 Output: Urine 0 / 0 Total Dialysis Output 1562 / 1562 Other: Stool Size Moderate Stool Consistency loose liquid Stool Color Green # Bowel Movements 1 Weight 85 kg Blood Glucose* 76 92 Hemodialysis Net Fluid 462 Removed (mL) Patient Weight 07/10/16 23:59 Weight 85 kg - General Appearance Exam: Patient is alert and oriented. She is in no acute distress. Neck supple. Carotids are brisk. Lungs sounds bilaterally. Heart regular rate and rhythm with a 2/6 soft ejection murmur. Abdomen shows normal bowel sounds and no bruits masses, megaly or tenderness. There is no guarding or rigidity. Lower extremities show mild lower extremity swelling. There is a tunnel dialysis catheter in the right chest. There is an immature AV fistula in the right arm. Results - Lab Results 07/10/16 06:09 07/09/16 12:30 Most recent lab results Calcium 9.0 mg/dL (8.6-10.8) 07/09/16 12:30 Phosphorus 8.6 mg/dL (2.3-4.7) H 07/09/16 12:30 Magnesium 2.4 mg/dL (1.6-2.6) 07/09/16 12:30 Consult Discharge Plan - Plan Referrals: Velma Maldonado CNP [Primary Care Provider] -
[2016-07-10] MEDS ORDERED: Darbepoetin 100 MCG/0.5 ML SYRINGE SQ SCH (08:00)
[2016-07-10] MEDS: Pantoprazole 40 MG VIAL IVP SCH (08:17)
[2016-07-10] MEDS ORDERED: Cefepime HCl 500 MG in D5% in Water 100 ML IVPB SCH (09:00)
--- NOTE | 2016-07-10 10:08 | Internal Med Progress Note ---
Date of Encounter: 07/10/16 Time of Encounter: 10:06 - Assessment and plan (1) Pneumonia due to Gram-negative bacteria Current Visit: Yes Status: Suspected Assessment and plan: Patient brings in today for healthcare associated pneumonia involving the left basilar and perihilar region. On IV cefepime and vancomycin as MRSA screen positive. Moderate risk for complications. (2) Decubitus ulcer of coccyx, stage 2 Current Visit: Yes Status: Chronic Assessment and plan: Present on admission. Local wound care and pressure ulcer prophylaxis. (3) End-stage renal disease on hemodialysis Current Visit: Yes Status: Acute Assessment and plan: Patient now started on hemodialysis. Improved BUN and creatinine today. Nephrology following. (4) Hyperkalemia Current Visit: Yes Status: Resolved Assessment and plan: This has now resolved (5) Metabolic encephalopathy Current Visit: Yes Status: Acute (6) Uremia syndrome Current Visit: Yes Status: Acute Assessment and plan: Improving. Patient is more clear mentally and following commands well. Awake and alert. (7) Diabetes mellitus type 2, insulin dependent Current Visit: No Status: Chronic Assessment and plan: Well-controlled. (8) Essential (primary) hypertension Current Visit: No Status: Chronic Assessment and plan: Patient has low normal blood pressure at baseline. Not on any antihypertensives. He has now been started on midodrine. - Subjective Interval history: Patient is feeling better today. Denies any shortness of breath or chest pain. Has been having difficulty swallowing and kept nothing by mouth. Denies any odynophagia. More awake and alert today. - Constitutional Vitals: Temp Pulse Resp BP Pulse Ox 99.4 F 74 18 84/32 93 L 07/10/16 07:20 07/10/16 07:20 07/10/16 07:20 07/10/16 07:20 07/10/16 08:23 General appearance: Present: cooperative, A&O X 1, answers questions appropriately - Respiratory Respiratory exam: Present: CTAB. Absent: accessory muscle use, rales, rhonchi, wheezes - Cardiovascular Cardiovascular exam: Present: RRR, +S1, +S2. Absent: diastolic murmur, gallop, rubs, systolic murmur - GI/Abdominal GI/Abdominal exam: Present: normal bowel sounds, soft, no peritoneal signs. Absent: distended, tenderness - Extremities Exam Extremities exam: Present: warm, radial pulses palpable and symetrical. Absent : calf tenderness, cyanotic - Neurological Exam Neurological exam: Present: alert, no focal deficits. Absent: facial droop, speech deficit - Skin Skin exam: Present: dry, intact Additional comments: Stage II decubitus ulcer in the coccyx region measuring 1 cm in diameter Internal Medicine: Result - Labs CBC & Chem 7: 07/10/16 06:09 07/10/16 06:09 Labs: Short CBC 07/10/16 Range/Units 06:09 WBC 16.1 H (4.3-11.1) K/mcL Hgb 8.5 L D (11.5-15.4) g/dL Hct 26.3 L (35.3-44.9) % Plt Count 190 (140-400) K/mcL Neutrophils # 12.7 H (1.6-8.9) K/mcL BMP 07/10/16 06:09 Sodium 136 D Potassium 4.0 D Chloride 98 Carbon Dioxide 22 BUN 41 H D Creatinine 4.69 H Glucose 76 Calcium 7.8 L - ABG Interpretation ABG results: PT/INR, D-dimer PT 10.6 Seconds (9.4-12.1) 07/09/16 12:30 Consult Discharge Plan - Plan Referrals: Velma Maldonado, HEALTH SCIENCE SPECIALIST [Primary Care Provider] - - Attending Attestation This document has been at least partially created by [employer] recognition technology by Dr. Garza. Errors in grammar, wording or other phrases may exist. If errors are found after the documentation is signed, they will be addressed individually in the addendum section of this document when appropriate.
[2016-07-10] MEDS ORDERED: Vancomycin 500 MG in D5% in Water (Mini-Bag+) 100 ML IVPB ONE (13:27)
[2016-07-10] MEDS: *HR* Heparin 5,000 UNIT/ML VIAL SQ SCH (16:20)
--- NOTE | 2016-07-10 19:06 | Electrocardiograph Report ---
[address] [place] [address] Test Date: 2016-07-09 Pat Name: Columba Hernandez Department: 104 Room: 2A26 Gender: F Pest Technician: : 1940 Requested By: Venessa Burr Order Number: [id number] Reading MD: Candice Bah Measurements Intervals [place] Rate: 74 P: 132 [place]: 262 QRS: 108 QRSD: 116 T: 72 QT: 410 QTc: 438 Interpretive Statements ELECTRONIC ATRIAL PACEMAKER MARKED RIGHT AXIS DEVIATION ANTEROSEPTAL MYOCARDIAL INFARCTION, OF INDETERMINATE AGE Electronically Signed On 07-10-2016 19:04:30 EST by Candice Bah
[2016-07-10] MEDS ORDERED: Insulin LISPRO 300 UNITS/3 ML VIAL SQ SCH (21:00)
[2016-07-10] MEDS: Budesonide Neb 0.5 MG/2 ML IH SCH (21:34)
[2016-07-11] MEDS: Ipratropium/Albuterol Neb 3 ML IH SCH ×4 (03:59→15:28)
[2016-07-11] MEDS: *HR* Heparin 5,000 UNIT/ML VIAL SQ SCH (06:15)
[2016-07-11] MEDS: Pantoprazole 40 MG VIAL IVP SCH (06:15)
[2016-07-11 07:21] LABS: Albumin 2.3 g/dL (3.5-5.0); Albumin/Globulin Ratio 0.7 (1.1-2.2); Bilirubin,Total 0.5 mg/dL (0.2-1.2); Calcium 8.3 mg/dL (8.6-10.8); Globulin 3.5 g/dL (2.4-3.5); Potassium 4.4 mEq/L (3.5-4.5); Total Protein 5.8 g/dL (6.0-8.3)
[2016-07-11] MEDS: Budesonide Neb 0.5 MG/2 ML IH SCH (07:34)
[2016-07-11 07:36] LABS: Basophils % 0.1 %; Eosinophils # 0.5 K/mcL (0.0-0.6); Eosinophils % 3.2 %; Hematocrit 26.6 % (35.3-44.9); Hemoglobin 8.5 g/dL (11.5-15.4); Immature Granulocytes % 1.1 % (0-4); Lymphocytes # 1.9 K/mcL (0.6-4.6); Lymphocytes % 12.7 %; Mean Corpuscular Hemoglobin 34.6 pg (28.0-33.3); Mean Corpuscular Volume 108.1 fL (83.0-100.0); Mean Platelet Volume 10.5 fL (9.4-12.4); Monocytes % 13.2 %; Neutrophils # 10.3 K/mcL (1.6-8.9); Nucleated Red Blood Cells 0.1 /100 WBC (0); Platelet Count 188 K/mcL (140-400); Red Blood Count 2.46 M/mcL (3.82-4.97); Red Cell Distribution Width 13.4 % (11.5-14.5); Segmented Neutrophils % 69.7 %
[2016-07-11] MEDS ORDERED: 0.9 % Sodium Chloride 250 ML IV PRN (08:09)
[2016-07-11] MEDS: Insulin LISPRO 300 UNITS/3 ML VIAL SQ SCH ×2 (09:37→11:53)
--- NOTE | 2016-07-11 09:45 | Nephrology Progress Note ---
Date of Encounter: 07/11/16 Time of Encounter: 09:35 - Assessment and Plan (1) End-stage renal disease on hemodialysis Current Visit: Yes Status: Acute HD today., orders given. If discharged will dialyze in [place] on Saturday. Subjective Interval history: Seen on HD. States feeling better, thinks going home today. Objective - Vital Signs Vital signs: Vital Signs Temp Pulse Resp BP Pulse Ox 07/11/16 07:36 16 96 07/11/16 07:18 98.4 F 75 16 114/63 95 07/11/16 03:59 16 95 07/11/16 03:45 99.4 F 75 20 120/60 97 07/11/16 00:24 98.4 F 76 20 101/36 07/10/16 23:48 18 94 L 07/10/16 21:16 98.5 F 108 20 90/50 94 L 07/10/16 14:28 98.5 F 65 94 112/71 07/10/16 10:54 84/32 Intake and Output 07/10/16 07/11/16 07/11/16 23:59 07:59 15:59 Intake Total 240 / 240 Balance 240 / 240 Intake: Oral 240 / 240 Other: Meal Breakfast Percent of Meal Consumed 90% Weight 88.3 kg Blood Glucose* 212 138 Patient Weight 07/11/16 23:59 Weight 88.3 kg - General Appearance General appearance: Present: well-developed, well-nourished, appears started age , obese EENT: Present: mucous membranes moist Neck: Present: no JVD Respiratory: Present: rhonchi Cardiology: Present: edema, regular rate, regular rhythm Additional Comments: mild LE Gastrointestinal: Present: normoactive bowel sounds, no tenderness Integumentary: Present: warm and dry Neurologic: Present: alert and oriented x3 Psychiatric: Present: mood/affect appropriate, cooperative - Lab 07/11/16 06:55 07/11/16 06:55 Most recent lab results Calcium 8.3 mg/dL (8.6-10.8) L 07/11/16 06:55 Phosphorus 8.6 mg/dL (2.3-4.7) H 07/09/16 12:30 Magnesium 1.7 mg/dL (1.6-2.6) 07/10/16 06:09 Consult Discharge Plan - Plan Referrals: Velma Maldonado, SOFTWARE SUPPORT ENGINEER [Primary Care Provider] -
--- NOTE | 2016-07-11 12:09 | Discharge Summary ---
Date of Encounter: 07/11/16 Time of Encounter: 10:25 - Discharge Diagnosis (1) Pneumonia due to Gram-negative bacteria Priority: Primary Status: Suspected (2) Decubitus ulcer of coccyx, stage 2 Priority: Secondary Status: Chronic (3) End-stage renal disease on hemodialysis Priority: Secondary Status: Acute (4) Hyperkalemia Priority: Secondary Status: Resolved (5) Metabolic encephalopathy Priority: Secondary Status: Acute (6) Uremia syndrome Priority: Secondary Status: Acute (7) Diabetes mellitus type 2, insulin dependent Priority: Secondary Status: Chronic (8) Essential (primary) hypertension Priority: Secondary Status: Chronic - Discharge Medications Prescriptions: Cefdinir [Omnicef] 300 mg PO Q24H #12 capsule Doxycycline 100 mg PO BID #24 capsule Home Medications: Aspirin [Adult Low Dose Aspirin EC] 81 mg PO DAILY 08/09/15 [History] Budesonide/Formoterol 160/4.5 [Symbicort 160/4.5] 2 puff IH BIDR 08/09/15 [ History] Citalopram [CeleXA] 20 mg PO QAM 08/09/15 [History] Ferrous Sulfate 325 mg PO QAM 08/09/15 [History] Insulin NPH Hum/Reg Insulin Hm [Novolin 70-30 100 Unit/ml Vial] 10 unit SQ QPM 08/09/15 [History] Insulin NPH Hum/Reg Insulin Hm [Novolin 70-30 100 Unit/ml Vial] 15 unit SQ QAM 08/09/15 [History] Ipratropium/Albuterol Neb [Duoneb] 3 ml IH QID PRN 08/09/15 [History] Nadolol [Corgard] 40 mg PO QAM 08/09/15 [History] [place]-3/Dha/Epa/Fish Oil [Fish Oil 1,000 mg Softgel] 1 each PO QPM 08/09/15 [ History] Oxycodone HCl [Oxaydo] 5 mg PO Q6H PRN 08/09/15 [History] Pantoprazole Sodium [Protonix] 40 mg PO QAM 08/09/15 [History] Pravastatin Sodium [Pravachol] 80 mg PO QAM 08/09/15 [History] Thiamine HCl [Vitamin B-1] 50 mg PO QAM 08/09/15 [History] Vitamin E Mixed [Vitamin E] 400 unit PO QPM 08/09/15 [History] Amlodipine [Norvasc] 10 mg PO DAILY 30 Days 08/18/15 [Rx] Calcitriol [Rocaltrol] 0.25 mcg PO MOWEFR #12 capsule 09/21/15 [Rx] Calcium Acetate [Phos-LO] 667 mg PO TIDWM #90 capsule 09/21/15 [Rx] Epoetin Manolo [Procrit] 10,000 unit SQ 3XW vial 09/21/15 [Rx] Cefdinir [Omnicef] 300 mg PO Q24H #12 capsule 07/11/16 [Rx] Doxycycline 100 mg PO BID #24 capsule 07/11/16 [Rx] Allergies/Adverse Reactions: Allergies Cyclobenzaprine [From Flexeril] Allergy (Verified 07/09/16 13:39) Hives levofloxacin [From Levaquin] Allergy (Verified 07/09/16 13:39) Hives rofecoxib [From Vioxx] Allergy (Verified 07/09/16 13:39) Hives Date of admission: 07/09/16 17:40 Primary care physician: Velma Maldonado CNP Consults: 07/09/16 18:20 Consult to Lens Blank Gauger [CONS] Routine Reason for SW Consult: possible home health or ecf 07/10/16 09:47 Consult to Speech Therapy [CONS] Routine Comment: Evaluate, develop and implement POC Reason for Consult: Possible Aspiration Time Notified: 09:48 Call Completed: Yes 07/11/16 08:15 Consult to Dialysis [CONS] ONCE Discharging clinician: Lubna Garza Anticipated date of discharge: 07/11/16 - Patient Status Disposition: Home Health Service Condition: Good Functional capacity at discharge: uses cane/walker Overall status at discharge: patient is progressing back to baseline - Discharge Instructions Instructions: Urinary Tract Infection in Women (DC), Pneumonia (DC) Follow Up With: Velma Maldonado CNP [Primary Care Provider] - (web request sent on 07/11/16) - Diet and Activity Activity: as per physical therapy Diet: diabetic diet, low salt diet, other (renal) Hospital course: Ms. Hernandez is a 76 year old female patient with history of end-stage renal disease on hemodialysis who was admitted here with acute encephalopathy related to pneumonia involving the left lower lobe and metabolic encephalopathy. She was also hyperkalemic on presentation and underwent emergent hemodialysis. She had missed dialysis sessions prior to her presentation to the ER. She was treated with IV antibiotics for her pneumonia to target healthcare associated organisms. Her blood cultures have so far been negative. Her urine culture was positive for Klebsiella oxytoca that is sensitive to second and third generation cephalosporins. She is clinically better and is more awake and alert. She is stable for discharge to home on oral antibiotics to complete treatment for her pneumonia and urinary tract infection. - Time Spent with Patient Total time spent providing and/or coordinating discharge services: Greater than 30 minutes (35 min) - Constitutional Vitals: Temp Pulse Resp BP Pulse Ox 97.6 F 75 17 130/55 96 07/11/16 09:10 07/11/16 11:48 07/11/16 11:48 07/11/16 11:48 07/11/16 07:36 General appearance: Present: cooperative, A&O X 1, answers questions appropriately - Attending Attestation This document has been at least partially created by [employer] recognition technology by Dr. Garza. Errors in grammar, wording or other phrases may exist. If errors are found after the documentation is signed, they will be addressed individually in the addendum section of this document when appropriate.
--- NOTE | 2016-07-11 12:18 | Physician Discharge Referral ---
Home Health/Hosp Referral Info Transfer to: Home Health Provider in Charge Post Discharge: PCP - Diagnosis (1) Pneumonia due to Gram-negative bacteria Priority: Primary Status: Suspected (2) Decubitus ulcer of coccyx, stage 2 Priority: Secondary Status: Chronic (3) End-stage renal disease on hemodialysis Priority: Secondary Status: Acute (4) Hyperkalemia Priority: Secondary Status: Resolved (5) Metabolic encephalopathy Priority: Secondary Status: Acute (6) Uremia syndrome Priority: Secondary Status: Acute (7) Diabetes mellitus type 2, insulin dependent Priority: Secondary Status: Chronic (8) Essential (primary) hypertension Priority: Secondary Status: Chronic - Respiratory Orders Smoking Cessation: Smoking cessation has been advised. For more information, call the [place] Tobacco Quit Line at 2-000-LQTL-NOW. - Diet/Nutrition Diet/Nutrition Orders: Renal, Cardiac (and diabetic) - Activity Activity Orders: Walker - Services Needed Following services are medically necessary services: Nursing, Physical Therapy, Occupational Therapy Home Care Orders: Wound care coccyx ulcer: Foam dressing. Frequent turning. - Transfer Medications Prescriptions: Cefdinir [Omnicef] 300 mg PO Q24H #12 capsule Doxycycline 100 mg PO BID #24 capsule Home Medications: Aspirin [Adult Low Dose Aspirin EC] 81 mg PO DAILY 08/09/15 [History] Budesonide/Formoterol 160/4.5 [Symbicort 160/4.5] 2 puff IH BIDR 08/09/15 [ History] Citalopram [CeleXA] 20 mg PO QAM 08/09/15 [History] Ferrous Sulfate 325 mg PO QAM 08/09/15 [History] Insulin NPH Hum/Reg Insulin Hm [Novolin 70-30 100 Unit/ml Vial] 10 unit SQ QPM 08/09/15 [History] Insulin NPH Hum/Reg Insulin Hm [Novolin 70-30 100 Unit/ml Vial] 15 unit SQ QAM 08/09/15 [History] Ipratropium/Albuterol Neb [Duoneb] 3 ml IH QID PRN 08/09/15 [History] Nadolol [Corgard] 40 mg PO QAM 08/09/15 [History] [place]-3/Dha/Epa/Fish Oil [Fish Oil 1,000 mg Softgel] 1 each PO QPM 08/09/15 [ History] Oxycodone HCl [Oxaydo] 5 mg PO Q6H PRN 08/09/15 [History] Pantoprazole Sodium [Protonix] 40 mg PO QAM 08/09/15 [History] Pravastatin Sodium [Pravachol] 80 mg PO QAM 08/09/15 [History] Thiamine HCl [Vitamin B-1] 50 mg PO QAM 08/09/15 [History] Vitamin E Mixed [Vitamin E] 400 unit PO QPM 08/09/15 [History] Amlodipine [Norvasc] 10 mg PO DAILY 30 Days 08/18/15 [Rx] Calcitriol [Rocaltrol] 0.25 mcg PO MOWEFR #12 capsule 09/21/15 [Rx] Calcium Acetate [Phos-LO] 667 mg PO TIDWM #90 capsule 09/21/15 [Rx] Epoetin Manolo [Procrit] 10,000 unit SQ 3XW vial 09/21/15 [Rx] Cefdinir [Omnicef] 300 mg PO Q24H #12 capsule 07/11/16 [Rx] Doxycycline 100 mg PO BID #24 capsule 07/11/16 [Rx] Allergies/Adverse Reactions: Allergies Cyclobenzaprine [From Flexeril] Allergy (Verified 07/09/16 13:39) Hives levofloxacin [From Levaquin] Allergy (Verified 07/09/16 13:39) Hives rofecoxib [From Vioxx] Allergy (Verified 07/09/16 13:39) Hives Certification: Further, I certify that my clinical findings support that this patient is homebound (i.e. absences from home require considerable and taxing effort and are for medical reasons or anabaptism services or infrequently or short duration when for other reasons) because: Homebound Reason: Patient requires assistance of a person or device to safely leave home Attestation: My signature below is to certify that this patient is under my care and that I, or nurse practitioner, or a physician's recreational assistant working with me, has a face-to -face encounter with this patient.
[2016-07-11] MEDS ORDERED: Cefdinir 300 MG CAPSULE PO SCH (14:00)
[2016-07-11] MEDS ORDERED: Cefepime HCl 1,000 MG in D5% in Water (Mini-Bag+) 100 ML IVPB SCH (16:00)
[2016-07-11] MEDS ORDERED: Vancomycin 750 MG in D5% in Water 250 ML IVPB ONE (16:00)
[2016-07-11] MEDS ORDERED: Aminoglycoside Consult 1 EACH MC ONE (16:08)
[2016-07-11 16:26] VITALS: BP 101/63
[2016-07-11] MEDS ORDERED: Calcium Acetate 667 MG CAPSULE PO SCH (17:00)
--- NOTE | 2016-08-07 15:40 | Electrocardiograph Report ---
[address] [place] [address] Test Date: 2016-07-09 Pat Name: Columba Hernandez Department: 104 Room: [facility] Gender: Night Manager: : 1940 Requested By: Sukumar Barahona Order Number: [id number] Reading MD: Candice Bah Measurements Intervals [place] Rate: 59 P: -58 [place]: 235 QRS: 86 QRSD: 117 T: 68 QT: 457 QTc: 457 Interpretive Statements ELECTRONIC ATRIAL PACEMAKER ANTEROSEPTAL MYOCARDIAL INFARCTION, OF INDETERMINATE AGE Electronically Signed On 08-07-2016 15:39:19 EDT by Candice Bah
== END 2016-07-11 16:09 | disposition home health service (06) | DRG 177 ==
LOC: EMEROO 10:11 → 2NENU 10:11 → 2ANU 17:39 → SUATTDRO 17:40
PROVIDERS: ADMIT Internal Medicine; ATTEND Internal Medicine

== ENCOUNTER 2017-01-20 15:29 | Inpatient (IN) ==
--- NOTE | 2017-01-20 15:42 | Emergency Department Note ---
Disposition Clinical Impression: Elevated troponin, Hypoxia CHF (congestive heart failure) Qualifiers: Congestive heart failure type: unspecified congestive heart failure type Congestive heart failure chronicity: acute on chronic Qualified Code(s): I50.9 - Heart failure, unspecified Acute renal failure (ARF) Qualifiers: Acute renal failure type: unspecified Qualified Code(s): N17.9 - Acute kidney failure, unspecified UTI (urinary tract infection) Qualifiers: Urinary tract infection type: site unspecified Hematuria presence: with hematuria Qualified Code(s): N39.0 - Urinary tract infection, site not specified ; R31.9 - Hematuria, unspecified Disposition: Admitted As Inpatient Condition: Fair Referrals: Velma Maldonado [employer]SIDE SALES EXECUTIVE [Primary Care Provider] - Forms: ED Satisfaction Letter Time of Disposition: 18:42 General Adult HPI - General Chief complaint: ED Weakness Stated complaint: weak,"not feeling good" Time Seen by Provider: 01/20/17 15:39 Source: patient Mode of arrival: wheelchair Limitations: no limitations Nursing Notes Reviewed: Yes Vital Signs Reviewed: Yes - History of Present Illness HPI Narrative: Patient presents to the ED with the chief complaint of nausea and generalized weakness. Patient went to see her primary care physician 3 days ago for nausea and was given Zofran. States that that has not helped. She does get dialysis and has not missed any sessions. He states that she just feels unwell. Denies any chest pain but does have some increased difficulty in breathing, slightly above baseline. Has a history of CHF and COPD. Denies any headache or changes in vision. No known fever. States that she just does not feel well Pain Scale: 6 - Related Data Home Medications Medication Instructions Recorded Confirmed Aspirin [Adult Low Dose Aspirin EC] 81 mg PO DAILY 08/09/15 07/09/16 Budesonide/Formoterol 160/4.5 2 puff IH BIDR 08/09/15 07/09/16 [Symbicort 160/4.5] Citalopram [CeleXA] 20 mg PO QAM 08/09/15 07/09/16 Ferrous Sulfate 325 mg PO QAM 08/09/15 07/09/16 Insulin NPH Hum/Reg Insulin Hm 10 unit SQ QPM 08/09/15 07/09/16 [Novolin 70-30 100 Unit/ml Vial] Insulin NPH Hum/Reg Insulin Hm 15 unit SQ QAM 08/09/15 07/09/16 [Novolin 70-30 100 Unit/ml Vial] Ipratropium/Albuterol Neb [Duoneb] 3 ml IH QID PRN 08/09/15 07/09/16 Nadolol [Corgard] 40 mg PO QAM 08/09/15 07/09/16 [place]-3/Dha/Epa/Fish Oil [Fish Oil 1 each PO QPM 08/09/15 07/09/16 1,000 mg Softgel] Oxycodone HCl [Oxaydo] 5 mg PO Q6H PRN 08/09/15 07/09/16 Pantoprazole Sodium [Protonix] 40 mg PO QAM 08/09/15 07/09/16 Pravastatin Sodium [Pravachol] 80 mg PO QAM 08/09/15 07/09/16 Thiamine HCl [Vitamin B-1] 50 mg PO QAM 08/09/15 07/09/16 Vitamin E Mixed [Vitamin E] 400 unit PO QPM 08/09/15 07/09/16 Previous Rx's Medication Instructions Recorded amLODIPine [Norvasc] 10 mg PO DAILY 30 Days 08/18/15 Calcitriol [Rocaltrol] 0.25 mcg PO MOWEFR #12 capsule 09/21/15 Calcium Acetate [Phos-LO] 667 mg PO TIDWM #90 capsule 09/21/15 Epoetin Manolo [Procrit] 10,000 unit SQ 3XW vial 09/21/15 Cefdinir [Omnicef] 300 mg PO Q24H #12 capsule 07/11/16 Doxycycline 100 mg PO BID #24 capsule 07/11/16 Allergies Allergy/AdvReac Type Severity Reaction Status Date / Time Cyclobenzaprine Allergy Hives Verified 01/20/17 15:31 [From Flexeril] levofloxacin [From Levaquin] Allergy Hives Verified 01/20/17 15:31 rofecoxib [From Vioxx] Allergy Hives Verified 01/20/17 15:31 codeine AdvReac Difficulty Verified 01/20/17 15:31 [From Tylenol-Codeine #3] Breathing All systems ED: reviewed and negative except as stated. Constitutional: Reports: weakness (generalized ). Denies: fever Eyes: Denies: vision change Cardiovascular: Denies: chest pain Respiratory: Reports: dyspnea. Denies: cough Gastrointestinal: Denies: abdominal pain, vomiting Musculoskeletal: Denies: back pain Neurological: Denies: headache Endocrine: Reports: fatigue Past Medical History - Past Medical History Attestation: Yes The following information was validated with the patient. Source: patient, old records reviewed, obtained from family Medical history: Reports: arthritis, asthma, CHF, coronary artery disease, DVT, diabetes, hyperlipidemia, hypertension, renal disease Surgical history: Reports: cataract, pacemaker/AICD, other Psychiatric history: Reports: no psych history - Social History Smoking Status: Former smoker Smokeless Tobacco Status: No Alcohol use: Reports: none Drug use: Reports: none Physical Exam - General Limitations: no limitations General appearance: alert, in no apparent distress - Head Head exam: atraumatic, normocephalic, normal inspection - Eye Eye exam: Present: normal appearance, PERRL, EOMI - ENT ENT exam: normal exam, normal oropharynx, mucous membranes moist - Neck Neck exam: Present: normal inspection, full ROM, trachea midline - Chest Chest inspection: Present: normal inspection, symmetric chest wall rise - Respiratory Respiratory exam: Present: other (Rales bilaterally, no distress, initial oxygen saturation 74%, improved to 98% on 4 L). Absent: normal lung sounds bilaterally, respiratory distress - Cardiovascular Cardiovascular exam: Present: regular rate, normal rhythm, normal heart sounds - Abdominal Exam Abdominal exam: Present: soft, Non-Tender. Absent: tenderness, distention, guarding, rebound, rigidity - Extremities Exam Extremities exam: Present: normal inspection, full ROM. Absent: tenderness, pedal edema - Neurological Exam Neurological exam: Present: alert, oriented X3 - Psychiatric Psychiatric exam: Present: normal affect, normal mood - Skin Skin exam: Present: warm, dry, intact, normal color Course Course Narrative: 76-year-old female presenting with nausea and generalized weakness for the last 3 days. History CHF, but no peripheral edema. Does have rales on exam. Also has history of COPD, but is not wheezing. We will get a chest x-ray, cardiac workup, EKG and will admit. EKG did not have any acute changes from her baseline and is as documented. She has been chest pain-free during this entire time. She has not missed dialysis. Chest x-ray shows pulmonary vascular congestion and pulmonary arterial hypertension. Clinically she does appear to be in a CHF exacerbation, although she has no peripheral edema. Her urine was grossly sedimented and cloudy and will undoubtedly be infected. We will go and treat with antibiotics. The urinalysis and lactate were rejected by the labs available be redrawn. Regardless of what her lactate level is we will not be giving her a fluid bolus due to her congestive heart failure. We will be placing her on a nitroglycerin drip and will admit to 2 N. Patient currently stable with no complaints Vital Signs Temperature 98.4 F 01/20/17 15:33 Pulse Rate 60 01/20/17 15:33 Respiratory Rate 26 01/20/17 15:33 Blood Pressure 137/69 01/20/17 15:33 O2 Sat by Pulse Oximetry 72 01/20/17 15:33 Temperature 98.4 F 01/20/17 15:33 Pulse Rate 88 01/20/17 18:16 Respiratory Rate 16 01/20/17 18:16 Blood Pressure 160/71 01/20/17 18:16 O2 Sat by Pulse Oximetry 63 01/20/17 18:16 Oxygen Delivery Oxygen Delivery Room Air Medical Decision Making - Medical Records Medical records reviewed: Yes I reviewed the patient's medical records. - Lab Data Lab results reviewed: Yes I reviewed the patient's lab results. Result diagrams: 01/20/17 16:23 01/20/17 16:23 Lab Results 01/20/17 01/20/17 01/20/17 Range/Units 16:23 16:23 16:23 WBC 15.6 H (4.3-11.1) K/mcL RBC 3.24 L (3.82-4.97) M/mcL Hgb 11.1 L (11.5-15.4) g/dL Hct 35.4 (35.3-44.9) % MCV 109.3 H (83.0-100.0) fL MCH 34.3 H (28.0-33.3) pg MCHC 31.4 L (31.6-35.5) g/dL RDW 12.9 (11.5-14.5) % Plt Count 207 (140-400) K/mcL MPV 10.1 (9.4-12.4) fL Immature Gran % 1.2 (0-4) % Seg Neutrophils % 70.5 % Lymphocytes % 15.2 % Monocytes % 12.4 % Eosinophils % 0.3 % Basophils % 0.4 % Neutrophils # 11.0 H (1.6-8.9) K/mcL Lymphocytes # 2.4 (0.6-4.6) K/mcL Monocytes # 1.9 H (0.0-1.3) K/mcL Eosinophils # 0.0 (0.0-0.6) K/mcL Basophils # 0.1 (0.0-0.2) K/mcL Nucleated RBCs/100 WBC 1.6 H (0) /100 WBC PT 17.1 H (9.4-12.1) Seconds INR 1.6 APTT 26.1 (26.0-36.0) Seconds Sodium 131 L (136-145) mEq/L Potassium 4.8 H (3.5-4.5) mEq/L Chloride 96 L (98-109) mEq/L Carbon Dioxide 19 (19-29) mEq/L BUN 40 H (7-20) mg/dL Creatinine 4.88 H (0.57-1.11) mg/dL Est GFR ( Amer) 11 L (> 60) Est GFR (Non-Af Amer) 9 L (> 60) BUN/Creatinine Ratio 8 (6-26) Glucose 129 H (70-99) mg/dL Calculated Osmolality 283 (280-300) Calcium 9.8 (8.6-10.8) mg/dL Troponin I (0-0.03) ng/mL B-Natriuretic Peptide (0-100) pg/mL Urine Color (Yellow) Urine Clarity (Clear) Urine pH (5.0-8.0) pH Units Ur Specific [place] (1.010-1.025) Urine Protein (Neg-Trace) mg/dL Urine Glucose (UA) (Normal) mg/dL Urine Ketones (Negative) mg/dL Urine Blood (Negative) Urine Nitrite (Negative) Urine Bilirubin (Negative) Urine Urobilinogen (Normal) mg/dL Ur Leukocyte Esterase (Negative) Urine Microscopic RBC (0-3) per hpf Urine Microscopic WBC (0-3) per hpf Ur Squamous Epith Cells (None-Few) per lpf Urine Bacteria (None-Few) per hpf Ur Culture Indicated? (NO) Specimen Rejected 01/20/17 01/20/17 01/20/17 Range/Units 16:23 16:23 16:59 WBC (4.3-11.1) K/mcL RBC (3.82-4.97) M/mcL Hgb (11.5-15.4) g/dL Hct (35.3-44.9) % MCV (83.0-100.0) fL MCH (28.0-33.3) pg MCHC (31.6-35.5) g/dL RDW (11.5-14.5) % Plt Count (140-400) K/mcL MPV (9.4-12.4) fL Immature Gran % (0-4) % Seg Neutrophils % % Lymphocytes % % Monocytes % % Eosinophils % % Basophils % % Neutrophils # (1.6-8.9) K/mcL Lymphocytes # (0.6-4.6) K/mcL Monocytes # (0.0-1.3) K/mcL Eosinophils # (0.0-0.6) K/mcL Basophils # (0.0-0.2) K/mcL Nucleated RBCs/100 WBC (0) /100 WBC PT (9.4-12.1) Seconds INR APTT (26.0-36.0) Seconds Sodium (136-145) mEq/L Potassium (3.5-4.5) mEq/L Chloride (98-109) mEq/L Carbon Dioxide (19-29) mEq/L BUN (7-20) mg/dL Creatinine (0.57-1.11) mg/dL Est GFR ( Amer) (> 60) Est GFR (Non-Af Amer) (> 60) BUN/Creatinine Ratio (6-26) Glucose (70-99) mg/dL Calculated Osmolality (280-300) Calcium (8.6-10.8) mg/dL Troponin I 0.72 H* (0-0.03) ng/mL B-Natriuretic Peptide 4585 H (0-100) pg/mL Urine Color (Yellow) Urine Clarity (Clear) Urine pH (5.0-8.0) pH Units Ur Specific [place] (1.010-1.025) Urine Protein (Neg-Trace) mg/dL Urine Glucose (UA) (Normal) mg/dL Urine Ketones (Negative) mg/dL Urine Blood (Negative) Urine Nitrite (Negative) Urine Bilirubin (Negative) Urine Urobilinogen (Normal) mg/dL Ur Leukocyte Esterase (Negative) Urine Microscopic RBC (0-3) per hpf Urine Microscopic WBC (0-3) per hpf Ur Squamous Epith Cells (None-Few) per lpf Urine Bacteria (None-Few) per hpf Ur Culture Indicated? (NO) Specimen Rejected Hemolyzed 01/20/17 Range/Units 17:31 WBC (4.3-11.1) K/mcL RBC (3.82-4.97) M/mcL Hgb (11.5-15.4) g/dL Hct (35.3-44.9) % MCV (83.0-100.0) fL MCH (28.0-33.3) pg MCHC (31.6-35.5) g/dL RDW (11.5-14.5) % Plt Count (140-400) K/mcL MPV (9.4-12.4) fL Immature Gran % (0-4) % Seg Neutrophils % % Lymphocytes % % Monocytes % % Eosinophils % % Basophils % % Neutrophils # (1.6-8.9) K/mcL Lymphocytes # (0.6-4.6) K/mcL Monocytes # (0.0-1.3) K/mcL Eosinophils # (0.0-0.6) K/mcL Basophils # (0.0-0.2) K/mcL Nucleated RBCs/100 WBC (0) /100 WBC PT (9.4-12.1) Seconds INR APTT (26.0-36.0) Seconds Sodium (136-145) mEq/L Potassium (3.5-4.5) mEq/L Chloride (98-109) mEq/L Carbon Dioxide (19-29) mEq/L BUN (7-20) mg/dL Creatinine (0.57-1.11) mg/dL Est GFR ( Amer) (> 60) Est GFR (Non-Af Amer) (> 60) BUN/Creatinine Ratio (6-26) Glucose (70-99) mg/dL Calculated Osmolality (280-300) Calcium (8.6-10.8) mg/dL Troponin I (0-0.03) ng/mL B-Natriuretic Peptide (0-100) pg/mL Urine Color Brown (Yellow) Urine Clarity Cloudy A (Clear) Urine pH 6.5 (5.0-8.0) pH Units Ur Specific [place] 1.020 (1.010-1.025) Urine Protein >=1000 H (Neg-Trace) mg/dL Urine Glucose (UA) Normal (Normal) mg/dL Urine Ketones Trace H (Negative) mg/dL Urine Blood Large H (Negative) Urine Nitrite Positive A (Negative) Urine Bilirubin Negative (Negative) Urine Urobilinogen Normal (Normal) mg/dL Ur Leukocyte Esterase Large H (Negative) Urine Microscopic RBC TNTC H (0-3) per hpf Urine Microscopic WBC TNTC H (0-3) per hpf Ur Squamous Epith Cells Few (None-Few) per lpf Urine Bacteria Many H (None-Few) per hpf Ur Culture Indicated? YES A (NO) Specimen Rejected - Radiology Data Radiology results reviewed: Yes I reviewed the patient's radiology results. - EKG Data EKG #1 EKG attestation: Yes I reviewed and interpreted this EKG. EKG results narrative: Paced rhythm, rate 60, AR interval 194, QRS 117, QTC 450, rate axis deviation, ST segment changes in V2 and V3 that are similar and morphology to previous on July 09 of this year. No chest pain Critical Care Time Critical Care Time: Yes Total Critical Care Time: 30 Attestation: Patient presented with generalized weakness. Criteria for congestive heart failure requiring preload reduction with IV nitroglycerin. Attestation Statement - Attestation Attestation: I examined this patient and my medical decision-making was reviewed with the Resident Physician. I agree with the documented findings, disposition and treatment plan as described except to the extent set forth below. [id number] time provided Patient complains of generalized weakness and generalized malaise. She required staff assistance to transfer from the wheelchair to the examination stretcher. Significant other at bedside. Home medication list reviewed by me. Triage note and vitals reviewed by me 17:08: Chest x-ray reviewed by me. Labs reviewed by me. Patient has an elevated brain natruretic peptide and troponin. Criteria for UTI.
[2017-01-20 16:37] LABS: Basophils # 0.1 K/mcL (0.0-0.2); Basophils % 0.4 %; Eosinophils % 0.3 %; Hematocrit 35.4 % (35.3-44.9); Hemoglobin 11.1 g/dL (11.5-15.4); Immature Granulocytes % 1.2 % (0-4); Lymphocytes # 2.4 K/mcL (0.6-4.6); Lymphocytes % 15.2 %; Mean Corpuscular HGB Conc 31.4 g/dL (31.6-35.5); Mean Corpuscular Hemoglobin 34.3 pg (28.0-33.3); Mean Corpuscular Volume 109.3 fL (83.0-100.0); Mean Platelet Volume 10.1 fL (9.4-12.4); Monocytes # 1.9 K/mcL (0.0-1.3); Monocytes % 12.4 %; Nucleated Red Blood Cells 1.6 /100 WBC (0); Platelet Count 207 K/mcL (140-400); Red Blood Count 3.24 M/mcL (3.82-4.97); Red Cell Distribution Width 12.9 % (11.5-14.5); Segmented Neutrophils % 70.5 %
[2017-01-20 16:42] LABS: INR 1.6; Prothrombin Time 17.1 Seconds (9.4-12.1)
[2017-01-20 16:44] LABS: Activated Partial Thrombo Time 26.1 Seconds (26.0-36.0)
[2017-01-20 16:51] LABS: Calcium 9.8 mg/dL (8.6-10.8); Potassium 4.8 mEq/L (3.5-4.5)
[2017-01-20] MEDS ORDERED: Aspirin 325 MG TABLET PO ONE (17:03)
[2017-01-20 17:42] LABS: Clarity,Urine Cloudy (Clear); Color,Urine Brown (Yellow); Leukocyte Esterase,Urine Large (Negative)
[2017-01-20 17:43] LABS: Blood,Urine Large (Negative); Nitrite,Urine Positive (Negative); PH,Urine 6.5 pH Units (5.0-8.0); Protein,Urine >=1000 mg/dL (Neg-Trace); Urobilinogen,Urine Normal (Normal)
[2017-01-20 17:44] LABS: Bilirubin,Urine Negative (Negative); Glucose,Urine (UA) Normal (Normal); Ketones,Urine Trace mg/dL (Negative)
[2017-01-20 17:45] LABS: RBC,Urine TNTC per hpf (0-3); Squamous Epithelial Cell,Urine Few per lpf (None-Few); WBC,Urine TNTC per hpf (0-3)
[2017-01-20 17:46] LABS: Bacteria,Urine Many per hpf (None-Few)
[2017-01-20] MEDS: Nitroglycerin 25 MG/250 ML INFUS..BTL IVC SCH (18:06)
[2017-01-20] MEDS ORDERED: 0.9 % Sodium Chloride 500 ML ONE (18:12)
--- NOTE | 2017-01-20 20:31 | Internal Med History&Physical ---
Date of Encounter: 01/20/17 Internal Medicine - H&P: HPI History of present illness: Ms. Hernandez is a 76 year old female Past Med Surg Social Fam HX - Past Medical History Medical history: arthritis, asthma, CHF, coronary artery disease, DVT, diabetes , hyperlipidemia, hypertension, renal disease Psychiatric history: no psych history - Past Surgical History Surgical History: cataract, pacemaker/AICD, other - Social History Smoking Status: Former smoker Smokeless Tobacco Status: No Alcohol use: none Drug use: none - Family History Mother Living Status: Hx Family Cardiac Disorders: Yes Hx Family Respiratory Disorders: No Hx Family Cancer: Yes (skin cancer) Hx Family GI Disorders: No Hx Family Endocrine Disorder: Yes (DM) Hx Family Neuromuscular Disorders: No Hx Family Neurologic Disorders: No Hx Family HEENT Disorders: No Hx Family Autoimmune Disorders: No Father Living Status: Hx Family Cardiac Disorders: No Hx Family Respiratory Disorders: Yes (black lung disease) Hx Family Cancer: No Hx Family GI Disorders: No Hx Family Endocrine Disorder: No Hx Family Neuromuscular Disorders: No Hx Family Neurologic Disorders: No Hx Family HEENT Disorders: No Hx Family Autoimmune Disorders: No Sister Living Status: Still Living Hx Family Cardiac Disorders: No Hx Family Respiratory Disorders: No Hx Family Cancer: No Hx Family GI Disorders: No Hx Family Endocrine Disorder: Yes (DM) Hx Family Neuromuscular Disorders: No Hx Family Neurologic Disorders: No Hx Family HEENT Disorders: No Hx Family Autoimmune Disorders: No Internal Medicine - H&P: Meds Aspirin [Adult Low Dose Aspirin EC] 81 mg PO DAILY 08/09/15 [History] Budesonide/Formoterol 160/4.5 [Symbicort 160/4.5] 2 puff IH BIDR 08/09/15 [ History] Citalopram [CeleXA] 20 mg PO QAM 08/09/15 [History] Ferrous Sulfate 325 mg PO QAM 08/09/15 [History] Insulin NPH Hum/Reg Insulin Hm [Novolin 70-30 100 Unit/ml Vial] 10 unit SQ QPM 08/09/15 [History] Insulin NPH Hum/Reg Insulin Hm [Novolin 70-30 100 Unit/ml Vial] 15 unit SQ QAM 08/09/15 [History] Ipratropium/Albuterol Neb [Duoneb] 3 ml IH QID PRN 08/09/15 [History] Nadolol [Corgard] 40 mg PO QAM 08/09/15 [History] [place]-3/Dha/Epa/Fish Oil [Fish Oil 1,000 mg Softgel] 1 each PO QPM 08/09/15 [ History] Oxycodone HCl [Oxaydo] 5 mg PO Q6H PRN 08/09/15 [History] Pantoprazole Sodium [Protonix] 40 mg PO QAM 08/09/15 [History] Pravastatin Sodium [Pravachol] 80 mg PO QAM 08/09/15 [History] Thiamine HCl [Vitamin B-1] 50 mg PO QAM 08/09/15 [History] Vitamin E Mixed [Vitamin E] 400 unit PO QPM 08/09/15 [History] amLODIPine [Norvasc] 10 mg PO DAILY 30 Days 08/18/15 [Rx] Calcitriol [Rocaltrol] 0.25 mcg PO MOWEFR #12 capsule 09/21/15 [Rx] Calcium Acetate [Phos-LO] 667 mg PO TIDWM #90 capsule 09/21/15 [Rx] Epoetin Manolo [Procrit] 10,000 unit SQ 3XW vial 09/21/15 [Rx] Gabapentin [Neurontin] 100 mg PO TID 01/20/17 [History] Midodrine [ProAmatine] 5 mg PO BID 01/20/17 [History] 3 Allergy/AdvReac Type Severity Reaction Status Date / Time Cyclobenzaprine Allergy Hives Verified 01/20/17 15:31 [From Flexeril] levofloxacin [From Levaquin] Allergy Hives Verified 01/20/17 15:31 rofecoxib [From Vioxx] Allergy Hives Verified 01/20/17 15:31 codeine AdvReac Difficulty Verified 01/20/17 15:31 [From Tylenol-Codeine #3] Breathing All Systems PM: A 10-system review of systems was performed and is negative for pertinent findings except as documented above in the HPI. - Constitutional Vitals: Temp Pulse Resp BP Pulse Ox 97.7 F 59 16 141/103 98 01/20/17 20:06 01/20/17 20:06 01/20/17 20:06 01/20/17 20:06 01/20/17 20:06 Internal Med - H&P Results - Labs CBC & Chem 7: 01/20/17 16:23 01/20/17 16:23
[2017-01-20] MEDS ORDERED: Naloxone 0.4 MG/ML INJ IVP PRN (20:47)
[2017-01-20] MEDS ORDERED: Ondansetron 4 MG/2 ML VIAL IVP PRN (20:50)
[2017-01-20] MEDS ORDERED: Acetaminophen 325 MG TABLET PO PRN (20:50)
[2017-01-20] MEDS ORDERED: D5% in Water 1,000 ML IVC PRN (20:53)
[2017-01-20] MEDS ORDERED: Dextrose Gel 15 GM PO PRN ×2 (20:53)
[2017-01-20] MEDS ORDERED: *HR* Dextrose 50 % in Water (Syg) 50 ML SYRINGE IVP PRN (20:53)
[2017-01-20] MEDS ORDERED: *HR* OxyCODONE Immed Rel 5 MG TABLET PO PRN (20:55)
[2017-01-20] MEDS ORDERED: Furosemide 40 MG/4 ML VIAL IVP ONE (20:55)
[2017-01-20] MEDS ORDERED: Ipratropium/Albuterol Neb 3 ML IH PRN (20:55)
--- NOTE | 2017-01-20 21:45 | Internal Med History&Physical ---
Date of Encounter: 01/20/17 Time of Encounter: 19:30 Assessment and Plan (1) Acute congestive heart failure Current visit: No Status: Acute Patient has increased the shortness of breath. BNP elevated to 4000 level. History of CHF. Previous echo reviewed. - As patient is still making urine. We will give patient Lasix 40 mg IV once. - We will continue NTG drip, closely monitor Vitals. - Nephrology consult was informed. Plan for hemodialysis tomorrow, which will improve fluid overload. The patient is at high risk because she is on NTG drip. Patient needed close monitor vitals. Qualifiers: Congestive heart failure type: diastolic Qualified Code(s): I50.31 - Acute diastolic (congestive) heart failure (2) DVT prophylaxis Current visit: No Status: Acute Heparin subcutaneously. (3) Diabetes mellitus type 2, insulin dependent Current visit: No Status: Chronic We will cover patient with sliding scale. Closely monitor glucose level. (4) End-stage renal disease on hemodialysis Current visit: No Status: Acute On hemodialysis. We will continue. (5) UTI (urinary tract infection) Current visit: Yes Status: Acute Urinalysis shows UTI. Patient had no fever. WBC elevated. - We will continue Rocephin IV. - Follow up urine culture. Previous urine culture result shows Klebsiella, sensitive to Rocephin. Qualifiers: Urinary tract infection type: site unspecified Hematuria presence: with hematuria Qualified Code(s): N39.0 - Urinary tract infection, site not specified; R31.9 - Hematuria, unspecified (6) Elevated troponin Current visit: Yes Status: Acute Patient denies chest pain. Elevated troponin possibly due to renal failure, CHF , and UTI. - We will check 3 sets of troponin to rule out ACS. Internal Medicine - H&P: HPI Chief complaint: SOB and weakness Admitted From: Home Plans for Post Hospital Care: Home History of present illness: Ms. Hernandez is a 76 year old female with history of CHF, diabetes, hypertension, end-stage renal disease on hemodialysis present to ER for shortness of breath and increased weakness. Patient said today she feels generalized weak, cannot stand and walk as usual. She also has increased shortness of breath. Patient denies chest pain or fever. She has nausea and vomited once yesterday. The vomiting is yellowish fluid, denies any blood in it. In emergency room, urine analysis shows a UTI. Also patient has elevated BNP to 4585. Patient denies missing hemodialysis. She still makes urine. Patient was started with NTG drip by ER physician. Her shortness of breath that has slightly improved after treatment. I have discussed the CODE STATUS with patient. She is full code. Past Med Surg Social Fam HX - Past Medical History Medical history: arthritis, asthma, CHF, coronary artery disease, DVT, diabetes , hyperlipidemia, hypertension, renal disease Psychiatric history: no psych history - Past Surgical History Surgical History: cataract, pacemaker/AICD, other - Social History Smoking Status: Former smoker Smokeless Tobacco Status: No Alcohol use: none Drug use: none - Family History Mother Living Status: Hx Family Cardiac Disorders: Yes Hx Family Respiratory Disorders: No Hx Family Cancer: Yes (skin cancer) Hx Family GI Disorders: No Hx Family Endocrine Disorder: Yes (DM) Hx Family Neuromuscular Disorders: No Hx Family Neurologic Disorders: No Hx Family HEENT Disorders: No Hx Family Autoimmune Disorders: No Father Living Status: Hx Family Cardiac Disorders: No Hx Family Respiratory Disorders: Yes (black lung disease) Hx Family Cancer: No Hx Family GI Disorders: No Hx Family Endocrine Disorder: No Hx Family Neuromuscular Disorders: No Hx Family Neurologic Disorders: No Hx Family HEENT Disorders: No Hx Family Autoimmune Disorders: No Sister Living Status: Still Living Hx Family Cardiac Disorders: No Hx Family Respiratory Disorders: No Hx Family Cancer: No Hx Family GI Disorders: No Hx Family Endocrine Disorder: Yes (DM) Hx Family Neuromuscular Disorders: No Hx Family Neurologic Disorders: No Hx Family HEENT Disorders: No Hx Family Autoimmune Disorders: No Internal Medicine - H&P: Meds Aspirin [Adult Low Dose Aspirin EC] 81 mg PO DAILY 08/09/15 [History] Budesonide/Formoterol 160/4.5 [Symbicort 160/4.5] 2 puff IH BIDR 08/09/15 [ History] Citalopram [CeleXA] 20 mg PO QAM 08/09/15 [History] Ferrous Sulfate 325 mg PO QAM 08/09/15 [History] Insulin NPH Hum/Reg Insulin Hm [Novolin 70-30 100 Unit/ml Vial] 10 unit SQ QPM 08/09/15 [History] Insulin NPH Hum/Reg Insulin Hm [Novolin 70-30 100 Unit/ml Vial] 15 unit SQ QAM 08/09/15 [History] Ipratropium/Albuterol Neb [Duoneb] 3 ml IH QID PRN 08/09/15 [History] Nadolol [Corgard] 40 mg PO QAM 08/09/15 [History] [place]-3/Dha/Epa/Fish Oil [Fish Oil 1,000 mg Softgel] 1 each PO QPM 08/09/15 [ History] Oxycodone HCl [Oxaydo] 5 mg PO Q6H PRN 08/09/15 [History] Pantoprazole Sodium [Protonix] 40 mg PO QAM 08/09/15 [History] Pravastatin Sodium [Pravachol] 80 mg PO QAM 08/09/15 [History] Thiamine HCl [Vitamin B-1] 50 mg PO QAM 08/09/15 [History] Vitamin E Mixed [Vitamin E] 400 unit PO QPM 08/09/15 [History] amLODIPine [Norvasc] 10 mg PO DAILY 30 Days 08/18/15 [Rx] Calcitriol [Rocaltrol] 0.25 mcg PO MOWEFR #12 capsule 09/21/15 [Rx] Calcium Acetate [Phos-LO] 667 mg PO TIDWM #90 capsule 09/21/15 [Rx] Epoetin Manolo [Procrit] 10,000 unit SQ 3XW vial 09/21/15 [Rx] Gabapentin [Neurontin] 100 mg PO TID 01/20/17 [History] Midodrine [ProAmatine] 5 mg PO BID 01/20/17 [History] 3 Allergy/AdvReac Type Severity Reaction Status Date / Time Cyclobenzaprine Allergy Hives Verified 01/20/17 15:31 [From Flexeril] levofloxacin [From Levaquin] Allergy Hives Verified 01/20/17 15:31 rofecoxib [From Vioxx] Allergy Hives Verified 01/20/17 15:31 codeine AdvReac Difficulty Verified 01/20/17 15:31 [From Tylenol-Codeine #3] Breathing All Systems PM: A 10-system review of systems was performed and is negative for pertinent findings except as documented above in the HPI. - Constitutional Vitals: Temp Pulse Resp BP Pulse Ox 97.7 F 59 16 141/103 98 01/20/17 20:06 01/20/17 20:06 01/20/17 20:06 01/20/17 20:06 01/20/17 20:06 General appearance: Present: mild distress, A&O X 3, answers questions appropriately - Head Head exam: Present: atraumatic, normocephalic - Eye Eye exam: Present: PERRL, conjuntiva pink, sclera anicteric Pupils: Present: PERRL - Neck Neck exam general surgery: Present: supple, trachea midline. Absent: lymphadenopathy - Respiratory Respiratory exam: Present: CTAB. Absent: accessory muscle use, rales, rhonchi, wheezes - Cardiovascular Cardiovascular exam: Present: RRR, +S1, +S2. Absent: diastolic murmur, gallop, rubs, systolic murmur - GI/Abdominal GI/Abdominal exam: Present: normal bowel sounds, soft, no peritoneal signs. Absent: distended, tenderness - Extremities Exam Extremities exam: Present: warm, radial pulses palpable and symmetrical. Absent : calf tenderness, cyanotic, pedal edema Additional comments: Chronic wound on Rt lower leg - Neurological Exam Neurological exam: Present: CN II-XII intact, oriented X3, no focal deficits. Absent: pronater drift, facial droop, speech deficit - Skin Skin exam: Present: dry, intact Internal Med - H&P Results - Labs CBC & Chem 7: 01/20/17 16:23 01/20/17 16:23 - EKG Data -: EKG Interpreted by Myself (Pacing rhythm, no significant ST-T changes)
[2017-01-20] MEDS: Insulin LISPRO 300 UNITS/3 ML VIAL SQ SCH (22:02)
[2017-01-20] MEDS: Gabapentin 100 MG CAPSULE PO SCH (22:30)
[2017-01-20] MEDS: Budesonide/Formoterol 160/4.5 MDI IH SCH (22:51)
[2017-01-21 04:17] LABS: Basophils # 0.1 K/mcL (0.0-0.2); Basophils % 0.4 %; Eosinophils # 0.1 K/mcL (0.0-0.6); Eosinophils % 0.7 %; Hematocrit 31.4 % (35.3-44.9); Hemoglobin 9.8 g/dL (11.5-15.4); Immature Granulocytes % 1.3 % (0-4); Lymphocytes # 1.9 K/mcL (0.6-4.6); Mean Corpuscular HGB Conc 31.2 g/dL (31.6-35.5); Mean Corpuscular Hemoglobin 33.6 pg (28.0-33.3); Mean Corpuscular Volume 107.5 fL (83.0-100.0); Mean Platelet Volume 10.1 fL (9.4-12.4); Monocytes # 1.7 K/mcL (0.0-1.3); Monocytes % 12.8 %; Neutrophils # 9.6 K/mcL (1.6-8.9); Nucleated Red Blood Cells 1.2 /100 WBC (0); Platelet Count 198 K/mcL (140-400); Red Blood Count 2.92 M/mcL (3.82-4.97); Red Cell Distribution Width 12.9 % (11.5-14.5); Segmented Neutrophils % 70.8 %
[2017-01-21 04:32] LABS: Calcium 9.2 mg/dL (8.6-10.8); Potassium 4.3 mEq/L (3.5-4.5)
[2017-01-21] MEDS: *HR* Heparin 5,000 UNIT/ML VIAL SQ SCH ×2 (06:06→16:44)
[2017-01-21] MEDS: Insulin LISPRO 300 UNITS/3 ML VIAL SQ SCH ×4 (07:24→22:29)
[2017-01-21] MEDS: Budesonide/Formoterol 160/4.5 MDI IH SCH ×2 (07:38→22:12)
[2017-01-21] MEDS: Gabapentin 100 MG CAPSULE PO SCH ×2 (08:14→14:47)
[2017-01-21] MEDS: Aspirin Enteric Coated 81 MG Tablet PO SCH (08:15)
[2017-01-21] MEDS: Calcium Acetate 667 MG CAPSULE PO SCH ×3 (08:15→16:44)
[2017-01-21] MEDS: Thiamine (B-1) 100 MG TABLET PO SCH (08:15)
[2017-01-21] MEDS: amLODIPine 5 MG TABLET PO SCH (08:15)
[2017-01-21] MEDS: Nystatin POWDER 30 GM BOTTLE TP SCH ×2 (08:16→22:31)
--- NOTE | 2017-01-21 08:42 | Nephrology Consult Note ---
Date of Encounter: 01/21/17 Time of Encounter: 08:39 Assessment and Plan (1) Anemia, chronic disease Current Visit: No Status: Acute Patient will undergo dialysis today. Vital removal as tolerated based on her blood pressure. She will be on Aranesp for her anemia. (2) End-stage renal disease on hemodialysis Current Visit: No Status: Acute (3) Leg weakness, bilateral Current Visit: Yes Status: Acute (4) End stage renal disease on dialysis due to type 2 diabetes mellitus Current Visit: Yes Status: Acute History of Present Illness - History of Present Illness This is a 76-year-old female with end-stage renal disease. She receives dialysis every Saturday in [place]. Patient presented with complaints of weak legs and difficulty walking since Saturday evening. She is also complaining of some shortness of breath. She has not missed any dialysis. She denies any chest pain. She says this morning and overall she is feeling somewhat better. She does have a history of chronic diastolic congestive heart failure as well as chronic lower extremity swelling. Reyes removal on dialysis is limited by hypotension. She is scheduled for her usual dialysis today. Past Med Surg Social Fam HX - Past Medical History Medical history: arthritis, asthma, CHF, coronary artery disease, DVT, diabetes , hyperlipidemia, hypertension, renal disease Psychiatric history: no psych history - Past Surgical History Surgical History: cataract, pacemaker/AICD, other - Social History Smoking Status: Former smoker Smokeless Tobacco Status: No Alcohol use: none Drug use: none - Family History Mother Living Status: Hx Family Cardiac Disorders: Yes Hx Family Respiratory Disorders: No Hx Family Cancer: Yes (skin cancer) Hx Family GI Disorders: No Hx Family Endocrine Disorder: Yes (DM) Hx Family Neuromuscular Disorders: No Hx Family Neurologic Disorders: No Hx Family HEENT Disorders: No Hx Family Autoimmune Disorders: No Father Living Status: Hx Family Cardiac Disorders: No Hx Family Respiratory Disorders: Yes (black lung disease) Hx Family Cancer: No Hx Family GI Disorders: No Hx Family Endocrine Disorder: No Hx Family Neuromuscular Disorders: No Hx Family Neurologic Disorders: No Hx Family HEENT Disorders: No Hx Family Autoimmune Disorders: No Sister Living Status: Still Living Hx Family Cardiac Disorders: No Hx Family Respiratory Disorders: No Hx Family Cancer: No Hx Family GI Disorders: No Hx Family Endocrine Disorder: Yes (DM) Hx Family Neuromuscular Disorders: No Hx Family Neurologic Disorders: No Hx Family HEENT Disorders: No Hx Family Autoimmune Disorders: No Medications and Allergies Aspirin [Adult Low Dose Aspirin EC] 81 mg PO DAILY 08/09/15 [History] Budesonide/Formoterol 160/4.5 [Symbicort 160/4.5] 2 puff IH BIDR 08/09/15 [ History] Citalopram [CeleXA] 20 mg PO QAM 08/09/15 [History] Ferrous Sulfate 325 mg PO QAM 08/09/15 [History] Insulin NPH Hum/Reg Insulin Hm [Novolin 70-30 100 Unit/ml Vial] 10 unit SQ QPM 08/09/15 [History] Insulin NPH Hum/Reg Insulin Hm [Novolin 70-30 100 Unit/ml Vial] 15 unit SQ QAM 08/09/15 [History] Ipratropium/Albuterol Neb [Duoneb] 3 ml IH QID PRN 08/09/15 [History] Nadolol [Corgard] 40 mg PO QAM 08/09/15 [History] [place]-3/Dha/Epa/Fish Oil [Fish Oil 1,000 mg Softgel] 1 each PO QPM 08/09/15 [ History] Oxycodone HCl [Oxaydo] 5 mg PO Q6H PRN 08/09/15 [History] Pantoprazole Sodium [Protonix] 40 mg PO QAM 08/09/15 [History] Pravastatin Sodium [Pravachol] 80 mg PO QAM 08/09/15 [History] Thiamine HCl [Vitamin B-1] 50 mg PO QAM 08/09/15 [History] Vitamin E Mixed [Vitamin E] 400 unit PO QPM 08/09/15 [History] amLODIPine [Norvasc] 10 mg PO DAILY 30 Days 08/18/15 [Rx] Calcitriol [Rocaltrol] 0.25 mcg PO MOWEFR #12 capsule 09/21/15 [Rx] Calcium Acetate [Phos-LO] 667 mg PO TIDWM #90 capsule 09/21/15 [Rx] Epoetin Manolo [Procrit] 10,000 unit SQ 3XW vial 09/21/15 [Rx] Gabapentin [Neurontin] 100 mg PO TID 01/20/17 [History] Midodrine [ProAmatine] 5 mg PO BID 01/20/17 [History] 3 Allergy/AdvReac Type Severity Reaction Status Date / Time Cyclobenzaprine Allergy Hives Verified 01/20/17 15:31 [From Flexeril] levofloxacin [From Levaquin] Allergy Hives Verified 01/20/17 15:31 rofecoxib [From Vioxx] Allergy Hives Verified 01/20/17 15:31 codeine AdvReac Difficulty Verified 01/20/17 15:31 [From Tylenol-Codeine #3] Breathing Review of Systems Constitutional: as per HPI, weakness Eyes: bilateral: blurred vision (patient denies), diplopia (patient denies) Nose, mouth and throat: no dizziness, no headache(s) Cardiovascular: dyspnea on exertion, edema, no chest pain, no palpitations Respiratory: dyspnea on exertion Gastrointestinal: no abdominal pain, no change in bowel habits Musculoskeletal: muscle weakness, no numbness Integumentary: no hirsutism, no striae Neurological: as per HPI, weakness Psychiatric: as per HPI Endocrine: as per HPI Exam - Vital Signs Vital signs: Initial Vital Signs Temp Pulse Resp BP Pulse Ox 98.4 F 60 26 137/69 72 01/20/17 15:33 01/20/17 15:33 01/20/17 15:33 01/20/17 15:33 01/20/17 15:33 Vital Signs - Last 8 Hours Temp Pulse Resp BP Pulse Ox 01/21/17 08:23 90 01/21/17 07:38 16 97 01/21/17 07:05 98.9 F 59 17 128/53 98 01/21/17 06:00 59 133/51 01/21/17 05:00 60 117/44 01/21/17 04:13 98.2 F 60 16 125/55 96 01/21/17 04:00 60 125/55 01/21/17 03:00 60 132/53 01/21/17 02:00 60 134/59 01/21/17 01:00 79 127/59 Intake and Output 01/20/17 01/21/17 01/21/17 23:59 07:59 15:59 Intake Total 200 / 200 Output Total 0 / 0 Balance 0 / 0 200 / 200 Intake: Oral 200 / 200 Output: Urine 0 / 0 Other: Weight 86.1 kg Blood Glucose* 132 122 Patient Weight 01/21/17 23:59 Weight 86.1 kg - General Appearance Exam: Patient is alert and oriented. She is in no acute distress. Lungs sounds otherwise clear. Heart regular rhythm to 2/6 MURMUR. ABDOMEN SHOWS NORMAL BOWEL SOUNDS BRUITS MASSES OR TENDERNESS. LOWER EXAMINATION 1+ LOWER EXTREMITY SWELLING. THERE IS A TUNNEL DIALYSIS CATHETER IN THE RIGHT CHEST. THERE IS A MATURE AV FISTULA IN THE RIGHT UPPER EXTREMITY. Results - Lab Results 01/21/17 03:32 01/21/17 03:32 Most recent lab results Calcium 9.2 mg/dL (8.6-10.8) 01/21/17 03:32 Consult Discharge Plan - Plan Referrals: Velma Maldonado CNP [Primary Care Provider] -
[2017-01-21] MEDS ORDERED: 0.9 % Sodium Chloride 250 ML IVC PRN (08:43)
--- NOTE | 2017-01-21 09:32 | Internal Med Progress Note ---
Date of Encounter: 01/21/17 Time of Encounter: 09:29 - Assessment and plan (1) Acute congestive heart failure Current Visit: Yes Status: Acute Assessment and plan: Patient presented with volume overload, dyspnea and hypoxia. She received a dose of IV Lasix. Has been on IV nitroglycerin drip, will discontinue at this time. Continue beta violeta. Fluid restriction. Continue supplemental oxygen , as needed noninvasive positive pressure ventilation and supportive care. She is scheduled for hemodialysis today which will improve her volume status. Continue telemetry monitoring. Qualifiers: Congestive heart failure type: diastolic Qualified Code(s): I50.31 - Acute diastolic (congestive) heart failure (2) UTI (urinary tract infection) Current Visit: Yes Status: Acute Assessment and plan: Urinalysis is suggestive of infection, preliminary urine culture grows Escherichia coli. Continue IV Rocephin and follow up final sensitivity and culture results. Qualifiers: Urinary tract infection type: acute cystitis Hematuria presence: without hematuria Qualified Code(s): N30.00 - Acute cystitis without hematuria (3) Elevated troponin Current Visit: Yes Status: Acute Assessment and plan: Mildly elevated troponin, likely related to volume overload and underlying end- stage renal disease and CHF. Cardiology consult noted, will follow-up limited echocardiogram. Continue aspirin, beta violeta and statin. Telemetry. (4) Leg weakness, bilateral Current Visit: Yes Status: Acute Assessment and plan: Physical and occupational therapy evaluation. Likely related to underlying comorbid conditions. (5) CAD (coronary artery disease) Current Visit: Yes Status: Chronic Qualifiers: Coronary Disease-Associated Artery/Lesion type: [place] artery [place] vs. transplanted heart: [place] heart Associated angina: without angina Qualified Code(s): I25.10 - Atherosclerotic heart disease of [place] coronary artery without angina pectoris (6) Diabetes mellitus type 2, insulin dependent Current Visit: Yes Status: Chronic Assessment and plan: Accu-Chek blood glucose monitoring with basal bolus insulin regimen. Diabetic diet. (7) Anemia, chronic disease Current Visit: Yes Status: Chronic Assessment and plan: Hemoglobin noted to be stable. Will receive Aranesp at dialysis. (8) Essential (primary) hypertension Current Visit: Yes Status: Chronic (9) End-stage renal disease on hemodialysis Current Visit: Yes Status: Chronic Assessment and plan: Nephrology consultation for hemodialysis needs. Continue multivitamins and phosphate binders. - Subjective Interval history: Reports feeling better; improving shortness of breath; has weakness and came in because of unsteady gait; no chest pain, nausea, vomiting; - Constitutional Vitals: Temp Pulse Resp BP Pulse Ox 98.9 F 90 16 128/53 97 01/21/17 07:05 01/21/17 08:23 01/21/17 07:38 01/21/17 07:05 01/21/17 07:38 General appearance: Present: A&O X 3, answers questions appropriately - Respiratory Respiratory exam: Present: rales (bibasal crackles, right>left). Absent: accessory muscle use, rhonchi, wheezes - Cardiovascular Cardiovascular exam: Present: RRR, +S1, +S2. Absent: diastolic murmur, gallop, rubs, systolic murmur - GI/Abdominal GI/Abdominal exam: Present: normal bowel sounds, soft, no peritoneal signs. Absent: distended, tenderness - Extremities Exam Extremities exam: Present: full ROM, pedal edema, warm, radial pulses palpable and symmetrical. Absent: calf tenderness, cyanotic Internal Medicine: Result - Labs CBC & Chem 7: 01/21/17 03:32 01/21/17 03:32 Labs: Short CBC 01/21/17 Range/Units 03:32 WBC 13.5 H (4.3-11.1) K/mcL Hgb 9.8 L (11.5-15.4) g/dL Hct 31.4 L (35.3-44.9) % Plt Count 198 (140-400) K/mcL Neutrophils # 9.6 H (1.6-8.9) K/mcL BMP 01/21/17 03:32 Sodium 131 L Potassium 4.3 Chloride 95 L Carbon Dioxide 25 BUN 47 H Creatinine 5.25 H Glucose 118 H Calcium 9.2 Cardiac Enzymes 01/20/17 01/21/17 Range/Units 22:40 03:32 Troponin I 0.94 H* 0.92 H* (0-0.03) ng/mL - ABG Interpretation ABG results: PT/INR, D-dimer PT 17.1 Seconds (9.4-12.1) H 01/20/17 16:23 Consult Discharge Plan - Plan Referrals: Velma Maldonado CNP [Primary Care Provider] - 01/29/17 1:00 pm ()
--- NOTE | 2017-01-21 09:48 | Electrocardiograph Report ---
[place] [id number] Test Date: 2017-01-20 Pat Name: Columba Hernandez Department: 104 Room: 2N14 Gender: F [employer] Person: BANDAR : 1940 Requested By: Jerson Proctor Order Number: [id number] Reading MD: Samantha Colon Measurements Intervals Michael Rate: 60 P: -58 HI: 194 QRS: 106 QRSD: 117 T: 85 QT: 450 QTc: 450 Interpretive Statements ELECTRONIC ATRIAL PACEMAKER RIGHT AXIS DEVIATION ANTEROSEPTAL MYOCARDIAL INFARCTION, OF INDETERMINATE AGE Electronically Signed On 01-21-2017 9:46:16 EDT by Samantha Colon
--- NOTE | 2017-01-21 10:45 | Cardiology Consult Note ---
Date of Encounter: 01/21/17 Time of Encounter: 09:45 Assessment and Plan (1) Acute kidney failure, unspecified Current Visit: Yes Status: Acute (2) CHF (congestive heart failure) Current Visit: Yes Status: Acute Continue with scheduled hemodialysis for today and get limited echo to assess for new wall motion abnormalities Qualifiers: Congestive heart failure type: diastolic Congestive heart failure chronicity: acute on chronic Qualified Code(s): I50.33 - Acute on chronic diastolic (congestive) heart failure (3) Elevated troponin Current Visit: Yes Status: Acute Reason for elevated troponins unclear at this time. Elevation may be the result of her CHF exacerbation, UTI, or her kidneys' inability to filter out troponins due to ESRD requiring dialysis. At this time, we will wait for her to have dialysis today and wait to see how its effects on troponin level. (4) End stage renal disease on dialysis due to type 2 diabetes mellitus Current Visit: Yes Status: Chronic Discussion w patient/family: The assessment and plan as outlined above was discussed with the patient and/or family members who expressed understanding and agreement. All questions were answered. Thank you for involving us in the care of your patient. Please call with any questions. History of Present Illness Consult date: 01/21/17 Consult reason: elevated troponins Chief complaint: weakness and "not feeling good" History of present illness: Ms. Hernandez is a 76 year old female with h/o diastolic CHF (08/14/15 LVEF 55-60 %), pacemaker/AICD, HTN, CAD, IDDM, COPD, and ESRD on dialysis (MWF) who presented to ED with increased difficulty breathing above her baseline. In the ED, she was found to have bilateral rales and her initial SpO2 was 74%, improved to 98% on 4L. Her CXR showed signs of pulmonary vascular congestion and chronic pulmonary HTN. EKG was unchanged from baseline, showed a paced rhythm with ST changes in V2 and V3 unchanged from last EKG. Nitro drip started in ED to reduce preload. Troponins have trended as follows: 0.72, 0.94, and 0.92. BNP of 4585. UTI was also discovered when pt presented to ED. Past Med Surg Social Fam HX - Past Medical History Medical history: arthritis, asthma, CHF, coronary artery disease, DVT, diabetes , hyperlipidemia, hypertension, renal disease Psychiatric history: no psych history - Past Surgical History Surgical History: cataract, pacemaker/AICD, other - Social History Smoking Status: Former smoker Smokeless Tobacco Status: No Alcohol use: none Drug use: none - Family History Mother Living Status: Hx Family Cardiac Disorders: Yes Hx Family Respiratory Disorders: No Hx Family Cancer: Yes (skin cancer) Hx Family GI Disorders: No Hx Family Endocrine Disorder: Yes (DM) Hx Family Neuromuscular Disorders: No Hx Family Neurologic Disorders: No Hx Family HEENT Disorders: No Hx Family Autoimmune Disorders: No Father Living Status: Hx Family Cardiac Disorders: No Hx Family Respiratory Disorders: Yes (black lung disease) Hx Family Cancer: No Hx Family GI Disorders: No Hx Family Endocrine Disorder: No Hx Family Neuromuscular Disorders: No Hx Family Neurologic Disorders: No Hx Family HEENT Disorders: No Hx Family Autoimmune Disorders: No Sister Living Status: Still Living Hx Family Cardiac Disorders: No Hx Family Respiratory Disorders: No Hx Family Cancer: No Hx Family GI Disorders: No Hx Family Endocrine Disorder: Yes (DM) Hx Family Neuromuscular Disorders: No Hx Family Neurologic Disorders: No Hx Family HEENT Disorders: No Hx Family Autoimmune Disorders: No Medications and Allergies Aspirin [Adult Low Dose Aspirin EC] 81 mg PO DAILY 08/09/15 [History] Budesonide/Formoterol 160/4.5 [Symbicort 160/4.5] 2 puff IH BIDR 08/09/15 [ History] Citalopram [CeleXA] 20 mg PO QAM 08/09/15 [History] Ferrous Sulfate 325 mg PO QAM 08/09/15 [History] Insulin NPH Hum/Reg Insulin Hm [Novolin 70-30 100 Unit/ml Vial] 10 unit SQ QPM 08/09/15 [History] Insulin NPH Hum/Reg Insulin Hm [Novolin 70-30 100 Unit/ml Vial] 15 unit SQ QAM 08/09/15 [History] Ipratropium/Albuterol Neb [Duoneb] 3 ml IH QID PRN 08/09/15 [History] Nadolol [Corgard] 40 mg PO QAM 08/09/15 [History] [place]-3/Dha/Epa/Fish Oil [Fish Oil 1,000 mg Softgel] 1 each PO QPM 08/09/15 [ History] Oxycodone HCl [Oxaydo] 5 mg PO Q6H PRN 08/09/15 [History] Pantoprazole Sodium [Protonix] 40 mg PO QAM 08/09/15 [History] Pravastatin Sodium [Pravachol] 80 mg PO QAM 08/09/15 [History] Thiamine HCl [Vitamin B-1] 50 mg PO QAM 08/09/15 [History] Vitamin E Mixed [Vitamin E] 400 unit PO QPM 08/09/15 [History] amLODIPine [Norvasc] 10 mg PO DAILY 30 Days 08/18/15 [Rx] Calcitriol [Rocaltrol] 0.25 mcg PO MOWEFR #12 capsule 09/21/15 [Rx] Calcium Acetate [Phos-LO] 667 mg PO TIDWM #90 capsule 09/21/15 [Rx] Epoetin [place] [Procrit] 10,000 unit SQ 3XW vial 09/21/15 [Rx] Gabapentin [Neurontin] 100 mg PO TID 01/20/17 [History] Midodrine [ProAmatine] 5 mg PO BID 01/20/17 [History] 3 Allergy/AdvReac Type Severity Reaction Status Date / Time Cyclobenzaprine Allergy Hives Verified 01/20/17 15:31 [From Flexeril] levofloxacin [From Levaquin] Allergy Hives Verified 01/20/17 15:31 rofecoxib [From Vioxx] Allergy Hives Verified 01/20/17 15:31 codeine AdvReac Difficulty Verified 01/20/17 15:31 [From Tylenol-Codeine #3] Breathing All Systems Review: A 10-system review of systems was performed and is negative for pertinent findings except as documented above in the HPI. - Cardiovascular Cardiovascular: no chest pain at rest, no dyspnea at rest, no palpitations, no rapid heart rate - Respiratory Respiratory: cough (white sputum), no dyspnea, no wheezing - Gastrointestinal Gastrointestinal: no nausea - Genitourinary Genitourinary: other (per pt, hasn't voided yet) - Musculoskeletal Musculoskeletal: muscle weakness (Bilateral LE yesterday, hasn't been out of bed to walk yet) Physical Examination Vital Signs, Last 4 Hours Temp Pulse Resp BP Pulse Ox 01/21/17 09:49 142/54 01/21/17 09:00 60 142/54 01/21/17 08:23 90 01/21/17 08:00 59 131/50 01/21/17 07:38 16 97 01/21/17 07:05 98.9 F 59 17 128/53 98 01/21/17 07:00 59 133/51 General: Conversant, No Apparent Distress HEENT: Atraumatic, Normocephaly Cardiac: Reg Rate and Rhythm (paced rhythm), Other (faint murmur over tricuspid listening post) Lungs: Other (+ rales in LLL; decreased air movement bilaterally; no respiratory distress) Neuro: Alert and responsive, No focal deficits noted Extremities: No Clubbing, No Cyanosis, No Edema Results 01/21/17 03:32 01/21/17 03:32 Lab Results 01/20/17 01/21/17 01/21/17 22:40 03:32 03:32 WBC 13.5 H Hgb 9.8 L Hct 31.4 L Plt Count 198 Sodium Potassium Chloride Carbon Dioxide BUN Creatinine Glucose Calcium Troponin I 0.94 H* 0.92 H* 01/21/17 03:32 WBC Hgb Hct Plt Count Sodium 131 L Potassium 4.3 Chloride 95 L Carbon Dioxide 25 BUN 47 H Creatinine 5.25 H Glucose 118 H Calcium 9.2 Troponin I - Imaging and Cardiology Echo: pending (Limited echocardiogram ordered to assess for new wall motion abnormalities) Consult Discharge Plan - Plan Referrals: Velma Maldonado CNP [Primary Care Provider] - 01/29/17 1:00 pm ()
[2017-01-21] MEDS: Nitroglycerin 25 MG/250 ML INFUS..BTL IVC SCH (11:19)
[2017-01-21] MEDS ORDERED: Gabapentin 100 MG CAPSULE PO SCH (21:00)
[2017-01-22 06:15] LABS: Basophils # 0.1 K/mcL (0.0-0.2); Basophils % 0.5 %; Eosinophils # 0.1 K/mcL (0.0-0.6); Eosinophils % 1.2 %; Hematocrit 33.3 % (35.3-44.9); Hemoglobin 10.5 g/dL (11.5-15.4); Immature Granulocytes % 0.9 % (0-4); Lymphocytes # 1.4 K/mcL (0.6-4.6); Lymphocytes % 12.5 %; Mean Corpuscular HGB Conc 31.5 g/dL (31.6-35.5); Mean Corpuscular Hemoglobin 33.9 pg (28.0-33.3); Mean Corpuscular Volume 107.4 fL (83.0-100.0); Monocytes # 1.4 K/mcL (0.0-1.3); Monocytes % 13.3 %; Neutrophils # 7.8 K/mcL (1.6-8.9); Nucleated Red Blood Cells 1.2 /100 WBC (0); Platelet Count 179 K/mcL (140-400); Red Cell Distribution Width 13.2 % (11.5-14.5); Segmented Neutrophils % 71.6 %
[2017-01-22] MEDS: *HR* Heparin 5,000 UNIT/ML VIAL SQ SCH ×2 (06:22→17:24)
[2017-01-22 06:32] LABS: Albumin 3.1 g/dL (3.5-5.0); Calcium 8.9 mg/dL (8.6-10.8); Potassium 4.1 mEq/L (3.5-4.5)
[2017-01-22] MEDS: Insulin LISPRO 300 UNITS/3 ML VIAL SQ SCH ×4 (07:35→20:53)
[2017-01-22] MEDS: Gabapentin 100 MG CAPSULE PO SCH (07:43)
[2017-01-22] MEDS: Aspirin Enteric Coated 81 MG Tablet PO SCH (07:43)
[2017-01-22] MEDS: Thiamine (B-1) 100 MG TABLET PO SCH (07:43)
[2017-01-22] MEDS: Calcium Acetate 667 MG CAPSULE PO SCH ×3 (07:43→17:23)
[2017-01-22] MEDS: amLODIPine 5 MG TABLET PO SCH (07:44)
[2017-01-22] MEDS: Nystatin POWDER 30 GM BOTTLE TP SCH ×2 (07:44→20:40)
--- NOTE | 2017-01-22 08:05 | Nephrology Progress Note ---
Date of Encounter: 01/22/17 Time of Encounter: 08:04 - Assessment and Plan (1) Anemia, chronic disease Current Visit: Yes Status: Chronic Patient is stable from a renal perspective. She underwent dialysis yesterday. From a volume perspective she is actually better than usual. Overall she is stable. Hemoglobin is 10.5. She is maintained on Aranesp for anemia. She is on antibiotics for a urinary tract infection. (2) End-stage renal disease on hemodialysis Current Visit: Yes Status: Chronic (3) Leg weakness, bilateral Current Visit: Yes Status: Acute (4) End stage renal disease on dialysis due to type 2 diabetes mellitus Current Visit: Yes Status: Chronic Subjective Interval history: Patient reports she feels better. She does not complain of any shortness of breath. She underwent dialysis yesterday. Urine cultures growing Escherichia coli. Echocardiogram showed an ejection fraction of 60%. Hemoglobin is 10.5. Objective - Vital Signs Vital signs: Vital Signs Temp Pulse Resp BP Pulse Ox 01/22/17 07:51 90 01/22/17 07:50 89 18 95 01/22/17 07:15 98.3 F 59 16 150/68 96 01/22/17 03:50 98.4 F 59 14 149/54 96 01/22/17 03:30 75 01/21/17 23:08 98.4 F 59 16 148/91 99 01/21/17 22:45 100 01/21/17 22:41 60 01/21/17 22:30 98.2 F 59 14 130/67 100 01/21/17 22:15 97.8 F 18 137/66 01/21/17 22:00 127/56 01/21/17 21:45 129/56 01/21/17 21:30 127/61 01/21/17 21:15 148/57 01/21/17 21:00 140/54 01/21/17 20:45 128/66 01/21/17 20:30 149/54 01/21/17 20:15 143/62 01/21/17 20:00 124/52 01/21/17 19:45 138/59 01/21/17 19:30 141/53 01/21/17 19:15 167/73 01/21/17 19:00 97.5 F L 18 163/83 Intake and Output 08/01/22/17 01/22/17 23:59 07:59 15:59 Intake Total 600 / 600 600 / 600 Output Total 3600 / 3600 Balance -3000 / -3000 600 / 600 Intake: Oral 0 / 0 600 / 600 Intake, Rinseback and 600 / 600 Flushes Output: Urine 0 / 0 Total Dialysis (HD) 3600 / 3600 Output Other: Weight 84.2 kg Blood Glucose* 155 136 Hemodialysis Net Fluid 3000 Removed (mL) Patient Weight 01/22/17 23:59 Weight 84.2 kg - General Appearance Exam: Patient is alert and oriented. She is in acute distress. Lungs mild bibasilar rales. Heart regular rhythm. Abdomen is benign. There is mild lower extremity swelling. There is a tunnel dialysis catheter in the right chest and immature AV fistula in the right upper extremity. - Lab 01/22/17 06:01 01/22/17 06:01 Most recent lab results Calcium 8.9 mg/dL (8.6-10.8) 01/22/17 06:01 Phosphorus 2.0 mg/dL (2.3-4.7) L 01/22/17 06:01 Consult Discharge Plan - Plan Referrals: Velma Maldonado ANNUAL GIVING DIRECTOR [Primary Care Provider] - 01/29/17 1:00 pm ()
[2017-01-22] MEDS: Budesonide/Formoterol 160/4.5 MDI IH SCH ×2 (08:10→21:07)
[2017-01-22 09:17] LABS: Hepatitis B Surface Antigen Nonreactive (Nonreactive)
--- NOTE | 2017-01-22 10:37 | Internal Med Progress Note ---
Date of Encounter: 01/22/17 Time of Encounter: 10:34 - Assessment and plan (1) CHF (congestive heart failure) Current Visit: No Status: Chronic Assessment and plan: Acute hypoxic respiratory failure secondary to Acute diastolic CHF/volume overload Desaturated down to the 70s, may need oxygen at home The patient still makes some urine, start Lasix IV 80 mg 3 times a day Continue dialysis Strict I's and O's Qualifiers: Congestive heart failure type: diastolic Congestive heart failure chronicity: unspecified congestive heart failure chronicity Qualified Code(s) : I50.30 - Unspecified diastolic (congestive) heart failure (2) UTI (urinary tract infection) Current Visit: Yes Status: Acute Assessment and plan: Acute metabolic encephalopathy secondary to urinary tract infection Cultures shows Escherichia coli sensitive to ceftriaxone Continue Rocephin day 3 Qualifiers: Urinary tract infection type: site unspecified Hematuria presence: with hematuria Qualified Code(s): N39.0 - Urinary tract infection, site not specified; R31.9 - Hematuria, unspecified (3) Metabolic encephalopathy Current Visit: No Status: Acute (4) Diabetes mellitus type 2, insulin dependent Current Visit: Yes Status: Chronic Assessment and plan: Accu-Chek blood glucose monitoring with basal bolus insulin regimen. Diabetic diet. (5) Elevated troponin Current Visit: Yes Status: Acute Assessment and plan: Likely secondary to demand ischemia (6) End stage renal disease on dialysis due to type 2 diabetes mellitus Current Visit: Yes Status: Chronic Assessment and plan: Followed by Dr. Coppola (7) CAD (coronary artery disease) Current Visit: Yes Status: Chronic Assessment and plan: Continue aspirin, Nitrol, simvastatin Qualifiers: Coronary Disease-Associated Artery/Lesion type: [place] artery [place] vs. transplanted heart: [place] heart Associated angina: without angina Qualified Code(s): I25.10 - Atherosclerotic heart disease of [place] coronary artery without angina pectoris - Subjective Interval history: Still feeling short of breath, patient says that she makes some urine still, denies any chest pain, no abdominal pain, no phlegm production, no fevers, no diarrhea. Feeling very weak - Constitutional Vitals: Temp Pulse Resp BP Pulse Ox 98.3 F 90 18 150/68 97 01/22/17 07:15 01/22/17 07:51 01/22/17 08:11 01/22/17 07:15 01/22/17 10:22 General appearance: Present: A&O X 3, answers questions appropriately - Head Head exam: Present: atraumatic, normocephalic - Eye Eye exam: Present: PERRL, conjuntiva pink, sclera anicteric Pupils: Present: PERRL - Neck Neck exam general surgery: Present: supple, trachea midline. Absent: lymphadenopathy - Respiratory Respiratory exam: Present: decreased breath sounds, CTAB. Absent: accessory muscle use, rales, rhonchi, wheezes Additional comments: Right upper chest dialysis catheter - Cardiovascular Cardiovascular exam: Present: RRR, +S1, +S2. Absent: diastolic murmur, gallop, rubs, systolic murmur - GI/Abdominal GI/Abdominal exam: Present: distended, normal bowel sounds, soft, no peritoneal signs. Absent: tenderness - Extremities Exam Extremities exam: Present: pedal edema, warm, radial pulses palpable and symmetrical. Absent: calf tenderness, cyanotic Additional comments: Right upper extremity AV fistula Laceration in the right vigil covered by dressing - Neurological Exam Neurological exam: Present: CN II-XII intact, oriented X3, no focal deficits. Absent: pronater drift, facial droop, speech deficit - Skin Skin exam: Present: dry, intact Internal Medicine: Result - Labs CBC & Chem 7: 01/22/17 06:01 01/22/17 06:01 Labs: Short CBC 01/22/17 Range/Units 06:01 WBC 10.8 (4.3-11.1) K/mcL Hgb 10.5 L (11.5-15.4) g/dL Hct 33.3 L (35.3-44.9) % Plt Count 179 (140-400) K/mcL Neutrophils # 7.8 (1.6-8.9) K/mcL BMP 01/22/17 06:01 Sodium 136 Potassium 4.1 Chloride 99 Carbon Dioxide 27 BUN 20 D Creatinine 3.52 H Glucose 140 H Calcium 8.9 Liver Function 01/22/17 Range/Units 06:01 Albumin 3.1 L (3.5-5.0) g/dL - ABG Interpretation ABG results: PT/INR, D-dimer PT 17.1 Seconds (9.4-12.1) H 01/20/17 16:23 Consult Discharge Plan - Plan Referrals: Velma Maldonado [facility] [Primary Care Provider] - 01/29/17 1:00 pm ()
[2017-01-22] MEDS: Furosemide 40 MG/4 ML VIAL IVP SCH ×3 (11:18→20:38)
[2017-01-23 06:35] LABS: Basophils # 0.1 K/mcL (0.0-0.2); Basophils % 0.4 %; Eosinophils # 0.2 K/mcL (0.0-0.6); Eosinophils % 1.4 %; Hemoglobin 10.1 g/dL (11.5-15.4); Immature Granulocytes % 0.8 % (0-4); Lymphocytes % 16.9 %; Mean Corpuscular HGB Conc 31.6 g/dL (31.6-35.5); Mean Corpuscular Hemoglobin 34.5 pg (28.0-33.3); Mean Corpuscular Volume 109.2 fL (83.0-100.0); Mean Platelet Volume 10.3 fL (9.4-12.4); Monocytes # 1.5 K/mcL (0.0-1.3); Monocytes % 12.7 %; Neutrophils # 8.1 K/mcL (1.6-8.9); Nucleated Red Blood Cells 1.3 /100 WBC (0); Platelet Count 185 K/mcL (140-400); Red Blood Count 2.93 M/mcL (3.82-4.97); Red Cell Distribution Width 13.1 % (11.5-14.5); Segmented Neutrophils % 67.8 %
[2017-01-23 06:40] LABS: Albumin 2.9 g/dL (3.5-5.0); Albumin/Globulin Ratio 0.9 (1.1-2.2); Bilirubin,Total 0.4 mg/dL (0.2-1.2); Calcium 9.1 mg/dL (8.6-10.8); Globulin 3.4 g/dL (2.4-3.5); Potassium 4.1 mEq/L (3.5-4.5); Total Protein 6.3 g/dL (6.0-8.3)
[2017-01-23] MEDS: *HR* Heparin 5,000 UNIT/ML VIAL SQ SCH (06:45)
[2017-01-23] MEDS: Furosemide 40 MG/4 ML VIAL IVP SCH ×2 (07:51→14:18)
[2017-01-23] MEDS: Aspirin Enteric Coated 81 MG Tablet PO SCH (07:52)
[2017-01-23] MEDS: Calcium Acetate 667 MG CAPSULE PO SCH ×2 (07:52→13:16)
[2017-01-23] MEDS: Thiamine (B-1) 100 MG TABLET PO SCH (07:52)
[2017-01-23] MEDS: Gabapentin 100 MG CAPSULE PO SCH (07:52)
[2017-01-23] MEDS: amLODIPine 5 MG TABLET PO SCH (07:52)
[2017-01-23] MEDS: Nystatin POWDER 30 GM BOTTLE TP SCH (07:53)
[2017-01-23] MEDS: Insulin LISPRO 300 UNITS/3 ML VIAL SQ SCH ×2 (07:54→13:15)
[2017-01-23] MEDS: Budesonide/Formoterol 160/4.5 MDI IH SCH (08:10)
[2017-01-23] MEDS ORDERED: *HR* Heparin 10,000 UNIT/10 ML VIAL IV PRN (08:43)
[2017-01-23] MEDS ORDERED: 0.9 % Sodium Chloride 250 ML IVC PRN (08:43)
[2017-01-23] MEDS ORDERED: 0.9 % Sodium Chloride 1,000 ML PRIME SCH (08:45)
--- NOTE | 2017-01-23 08:48 | Discharge Summary ---
Date of Encounter: 01/23/17 Time of Encounter: 08:45 - Discharge Diagnosis (1) CHF (congestive heart failure) Priority: Primary Status: Chronic Comments: Acute hypoxic respiratory failure secondary to Acute diastolic CHF/volume overload Qualifiers: Qualified Code(s): I50.30 - Unspecified diastolic (congestive) heart failure (2) UTI (urinary tract infection) Priority: Primary Status: Acute Comments: Acute metabolic encephalopathy secondary to urinary tract infection Qualifiers: Qualified Code(s): N39.0 - Urinary tract infection, site not specified; R31.9 - Hematuria, unspecified (3) Metabolic encephalopathy Priority: Primary Status: Acute (4) Diabetes mellitus type 2, insulin dependent Priority: Secondary Status: Chronic (5) Elevated troponin Priority: Secondary Status: Acute Comments: Likely secondary to demand ischemia (6) End stage renal disease on dialysis due to type 2 diabetes mellitus Priority: Secondary Status: Chronic (7) CAD (coronary artery disease) Priority: Secondary Status: Chronic Qualifiers: Qualified Code(s): I25.10 - Atherosclerotic heart disease of [place] coronary artery without angina pectoris - Discharge Medications Prescriptions: Furosemide [Lasix] 80 mg PO BID #60 tablet Home Medications: Aspirin [Adult Low Dose Aspirin EC] 81 mg PO DAILY 08/09/15 [History] Citalopram [CeleXA] 20 mg PO QAM 08/09/15 [History] Ferrous Sulfate 325 mg PO QAM 08/09/15 [History] Insulin NPH Hum/Reg Insulin Hm [Novolin 70-30 100 Unit/ml Vial] 10 unit SQ QPM 08/09/15 [History] Insulin NPH Hum/Reg Insulin Hm [Novolin 70-30 100 Unit/ml Vial] 15 unit SQ QAM 08/09/15 [History] Ipratropium/Albuterol Neb [Duoneb] 3 ml IH QID PRN 08/09/15 [History] [place]-3/Dha/Epa/Fish Oil [Fish Oil 1,000 mg Softgel] 1 each PO QPM 08/09/15 [ History] Pantoprazole Sodium [Protonix] 40 mg PO QAM 08/09/15 [History] Pravastatin Sodium [Pravachol] 80 mg PO QAM 08/09/15 [History] Thiamine HCl [Vitamin B-1] 50 mg PO QAM 08/09/15 [History] Vitamin E Mixed [Vitamin E] 400 unit PO QPM 08/09/15 [History] amLODIPine [Norvasc] 10 mg PO DAILY 30 Days 08/18/15 [Rx] Calcium Acetate [Phos-LO] 667 mg PO TIDWM #90 capsule 09/21/15 [Rx] Gabapentin [Neurontin] 100 mg PO TID 01/20/17 [History] Midodrine [ProAmatine] 5 mg PO BID 01/20/17 [History] Ondansetron HCl 4 mg PO TID PRN 01/21/17 [History] Furosemide [Lasix] 80 mg PO BID #60 tablet 01/23/17 [Rx] Allergies/Adverse Reactions: 3 Allergy/AdvReac Type Severity Reaction Status Date / Time Cyclobenzaprine Allergy Hives Verified 01/20/17 15:31 [From Flexeril] levofloxacin [From Levaquin] Allergy Hives Verified 01/20/17 15:31 rofecoxib [From Vioxx] Allergy Hives Verified 01/20/17 15:31 codeine AdvReac Difficulty Verified 01/20/17 15:31 [From Tylenol-Codeine #3] Breathing Date of admission: 01/21/17 16:15 Primary care physician: Velma Maldonado CNP Consults: 01/22/17 10:24 Consult to Occupational Therapy [CONS] Routine Comment: Evaluate, develop and implement POC Reason for Consult: discahrge planning - Patient Status Disposition: Transfer SNF Condition: Fair Overall status at discharge: patient is progressing back to baseline - Discharge Instructions Follow Up With: Velma Maldonado CNP [Primary Care Provider] - 01/29/17 1:00 pm () Additional Instructions: Follow-up with primary care physician within the next 7 days after being discharged from a rehabilitation facility. Continue hemodialysis. Needs a fluid restriction of 1500 mL per day. Wound care on right lower extremity. Start Lasix - Diet and Activity Activity: increase activity as tolerated Diet: diabetic diet (Renal diet) Hospital course: Ms. Hernandez is a 76 year old female with history of diastolic CHF, diabetes insulin-dependent, hypertension, end-stage renal disease on hemodialysis presented to ER for shortness of breath and increased weakness. Patient said she felt very weak, could not stand and walk as usual. She also had increased shortness of breath. Patient denied chest pain or fever. She had nausea and vomited . The vomiting was yellowish , denied any blood in it. In the emergency room, urine analysis showed a UTI. Desaturated down to the 70s. Also patient had an elevated BNP to 4585. Patient denied missing hemodialysis. She still makes urine. Patient was started with NTG drip by ER physician. Went to dialysis and almost 3600 mL of fluid were removed. The patient was continued on Rocephin. Cultures shows Escherichia coli sensitive to ceftriaxone Was given 4 doses of Rocephin - Time Spent with Patient Total time spent providing and/or coordinating discharge services: Greater than 30 minutes (40 min) - Constitutional Vitals: Temp Pulse Resp BP Pulse Ox 98.0 F 89 16 132/49 95 01/23/17 07:01/23/17 07:01/23/17 08:11 01/23/17 07:01/23/17 08:11 General appearance: Present: A&O X 3, answers questions appropriately - Head Head exam: Present: atraumatic, normocephalic - Eye Eye exam: Present: PERRL, conjuntiva pink, sclera anicteric Pupils: Present: PERRL - Neck Neck exam general surgery: Present: supple, trachea midline. Absent: lymphadenopathy - Respiratory Respiratory exam: Present: CTAB, rales (Minimal bibasilar fine crackles). Absent: accessory muscle use, rhonchi, wheezes Additional comments: Right upper chest temporary dialysis catheter Right upper extremity AV fistula Right lower extremity 5x3 cm ulcer not infected covered by dressing - Cardiovascular Cardiovascular exam: Present: RRR, +S1, +S2. Absent: diastolic murmur, gallop, rubs, systolic murmur - GI/Abdominal GI/Abdominal exam: Present: distended, normal bowel sounds, soft, no peritoneal signs. Absent: tenderness - Extremities Exam Extremities exam: Present: warm, radial pulses palpable and symmetrical. Absent : calf tenderness, cyanotic, pedal edema - Neurological Exam Neurological exam: Present: CN II-XII intact, oriented X3, no focal deficits. Absent: pronater drift, facial droop, speech deficit - Skin Skin exam: Present: dry. Absent: intact
[2017-01-23] MEDS ORDERED: Lactulose Oral Soln 20 GM/30 ML UDC PO ONE (08:55)
--- NOTE | 2017-01-23 08:57 | Nephrology Progress Note ---
Date of Encounter: 01/23/17 Time of Encounter: 08:40 - Assessment and Plan (1) End-stage renal disease on hemodialysis Current Visit: Yes Status: Chronic HD today, keeping MWF schedule. Orders given. Subjective Interval history: Sitting up in bed, states feels stronger. Has been out of bed with PT assist. Objective - Vital Signs Vital signs: Vital Signs Temp Pulse Resp BP Pulse Ox 01/23/17 08:11 16 95 01/23/17 07:17 98.0 F 89 20 132/49 96 01/23/17 04:00 98.0 F 59 16 123/37 94 01/23/17 00:15 98.4 F 60 18 110/39 97 01/22/17 23:55 98.1 F 60 16 113/47 96 01/22/17 21:08 14 97 01/22/17 20:56 74 01/22/17 19:14 97.7 F 59 19 150/41 98 01/22/17 16:22 98.5 F 89 18 151/64 97 01/22/17 15:36 59 01/22/17 15:17 60 01/22/17 11:41 60 01/22/17 11:11 98.9 F 60 18 144/45 95 01/22/17 10:22 97 01/22/17 10:21 96 Intake and Output 01/22/17 01/23/17 01/23/17 23:59 07:59 15:59 Intake Total 340 / 340 250 / 250 Balance 340 / 340 250 / 250 Intake: IV Fluids 100 / 100 Rocephin 1,000 MG In 100 / 100 Dextrose 5% (Minibag+) 100 ML 100 ML @ 200 mls/ hr IVPB Q24H [facility] Rx#: [id number] Oral 240 / 240 250 / 250 Other: Meal Dinner Percent of Meal Consumed 100% # Voids 2 Weight 83.7 kg Blood Glucose* 208 179 Patient Weight 01/23/17 23:59 Weight 83.7 kg - General Appearance General appearance: Present: well-developed, well-nourished, appears started age EENT: Present: mucous membranes moist Neck: Present: no JVD Respiratory: Present: clear Cardiology: Present: edema, regular rate, regular rhythm Gastrointestinal: Present: normoactive bowel sounds, no tenderness Integumentary: Present: warm and dry Neurologic: Present: alert and oriented x3 Psychiatric: Present: mood/affect appropriate, cooperative - Lab 01/23/17 05:09 01/23/17 05:09 Most recent lab results Calcium 9.1 mg/dL (8.6-10.8) 01/23/17 05:09 Phosphorus 2.0 mg/dL (2.3-4.7) L 01/22/17 06:01 Consult Discharge Plan - Plan Referrals: Velma Maldonado CNP [Primary Care Provider] - 01/29/17 1:00 pm ()
--- NOTE | 2017-01-23 09:02 | Physician Discharge Referral ---
ExtendedCare Referral Info Provider in Charge after Transfer: PCP Institutional Level of Care: Skilled - Diagnosis (1) CHF (congestive heart failure) Status: Chronic (2) UTI (urinary tract infection) Status: Acute (3) Metabolic encephalopathy Status: Acute (4) Diabetes mellitus type 2, insulin dependent Status: Chronic (5) Elevated troponin Status: Acute (6) End stage renal disease on dialysis due to type 2 diabetes mellitus Status: Chronic (7) CAD (coronary artery disease) Status: Chronic - Transfer Medications Prescriptions: Furosemide [Lasix] 80 mg PO BID #60 tablet Home Medications: Aspirin [Adult Low Dose Aspirin EC] 81 mg PO DAILY 08/09/15 [History] Citalopram [CeleXA] 20 mg PO QAM 08/09/15 [History] Ferrous Sulfate 325 mg PO QAM 08/09/15 [History] Insulin NPH Hum/Reg Insulin Hm [Novolin 70-30 100 Unit/ml Vial] 10 unit SQ QPM 08/09/15 [History] Insulin NPH Hum/Reg Insulin Hm [Novolin 70-30 100 Unit/ml Vial] 15 unit SQ QAM 08/09/15 [History] Ipratropium/Albuterol Neb [Duoneb] 3 ml IH QID PRN 08/09/15 [History] [place]-3/Dha/Epa/Fish Oil [Fish Oil 1,000 mg Softgel] 1 each PO QPM 08/09/15 [ History] Pantoprazole Sodium [Protonix] 40 mg PO QAM 08/09/15 [History] Pravastatin Sodium [Pravachol] 80 mg PO QAM 08/09/15 [History] Thiamine HCl [Vitamin B-1] 50 mg PO QAM 08/09/15 [History] Vitamin E Mixed [Vitamin E] 400 unit PO QPM 08/09/15 [History] amLODIPine [Norvasc] 10 mg PO DAILY 30 Days 08/18/15 [Rx] Calcium Acetate [Phos-LO] 667 mg PO TIDWM #90 capsule 09/21/15 [Rx] Gabapentin [Neurontin] 100 mg PO TID 01/20/17 [History] Midodrine [ProAmatine] 5 mg PO BID 01/20/17 [History] Ondansetron HCl 4 mg PO TID PRN 01/21/17 [History] Furosemide [Lasix] 80 mg PO BID #60 tablet 01/23/17 [Rx] Allergies/Adverse Reactions: 3 Allergy/AdvReac Type Severity Reaction Status Date / Time Cyclobenzaprine Allergy Hives Verified 01/20/17 15:31 [From Flexeril] levofloxacin [From Levaquin] Allergy Hives Verified 01/20/17 15:31 rofecoxib [From Vioxx] Allergy Hives Verified 01/20/17 15:31 codeine AdvReac Difficulty Verified 01/20/17 15:31 [From Tylenol-Codeine #3] Breathing - Respiratory Orders Smoking Cessation: Smoking cessation has been advised. For more information, call the [place] Tobacco Quit Line at 7-963-SXWT-NOW. - Advance Directives Code Status: Full Code - Diet Orders No Added Salt (CHUCK), Renal House Supplement per Dietary: Follow-up with primary care physician within the next 7 days after being discharged from a rehabilitation facility. Continue hemodialysis. Needs a fluid restriction of 1500 mL per day. Wound care on right lower extremity. Start Lasix CERTIFICATION: I certify that the transfer of the above named patient to an Extended Care Facility is necessary for the continuing treatment of the diagnosis listed. The above information is true and accurate reflection of patient's current condition. Confidential - Redisclosure prohibited without a patient's written consent.
[2017-01-23] MEDS ORDERED: 0.9 % Sodium Chloride 2,000 ML ONE (11:54)
[2017-01-23 12:58] LABS: Hepatitis B Surface Antibody 0.46 mIU/mL
[2017-01-23 13:48] VITALS: BP 116/32
== END 2017-01-23 17:36 | DRG 291 ==
LOC: 2NNU 15:29 → EMEROO 15:29 → 2NNU 19:51 → SUATTDRO 01-21 16:15
PROVIDERS: ADMIT Internal Medicine; ATTEND Internal Medicine

== ENCOUNTER 2017-03-20 09:28 | Inpatient (IN) ==
[2017-03-20] MEDS ORDERED: 0.9 % Sodium Chloride 500 ML IVC ONE ×2 (09:42→11:50)
--- NOTE | 2017-03-20 09:51 | Emergency Department Note ---
START Narrative - START START: I examined this patient and my medical decision-making was reviewed with the Resident Physician. I agree with the documented findings, disposition and treatment plan as described except to the extent set forth below. 76 year old female who has dialysis MWF was mmost recently treated for a UTI a few days ago with keflex and presents today with increased altered mental status She states she is still having difficulty with urination. Patinet is alert but does seem moderately disoriented. EMS states that they are familiar with this patinet as well and she appers altered. My clinical suspicion is that she has failed outpatinet therapy for her UTI and may need inpatinet therapy wiht IV ABX.
--- NOTE | 2017-03-20 10:12 | Emergency Department Note ---
Disposition Clinical Impression: Hyponatremia Altered mental state Qualifiers: Altered mental status type: unspecified Qualified Code(s): R41.82 - Altered mental status, unspecified UTI (urinary tract infection) Qualifiers: Urinary tract infection type: acute cystitis Hematuria presence: with hematuria Qualified Code(s): N30.01 - Acute cystitis with hematuria Disposition: Admitted As Inpatient Condition: Fair Referrals: Velma Maldonado PRINCIPAL CLOUD ARCHITECT [Primary Care Provider] - Forms: ED Satisfaction Letter Time of Disposition: 12:04 Altered Mental Status HPI - General Chief Complaint: ED Altered Mental Status Stated Complaint: AMS, possible UTI Time Seen by Provider: 03/20/17 09:34 Source: patient, EMS Nursing Notes Reviewed: Yes Vital Signs Reviewed: Yes - History of Present Illness HPI Narrative: 76-year-old female past medical history of Chronic Kidney Disease depended on dialysis, recurrent urinary tract infections, diabetes, presents to the emergency department with concerns for altered mental status. Patient's states that she is becoming more confused. Patient is a Saturday dialysis, and has not had her dialysis today. Patient states that she feels as if her legs are a little bit weaker than normal but has no other complaints at this time. - Related Data Home Medications Medication Instructions Recorded Confirmed Aspirin [Adult Low Dose Aspirin EC] 81 mg PO DAILY 08/09/15 03/20/17 Citalopram [CeleXA] 20 mg PO QAM 08/09/15 03/20/17 Ferrous Sulfate 325 mg PO QAM 08/09/15 03/20/17 Insulin NPH Hum/Reg Insulin Hm 10 unit SQ QPM 08/09/15 03/20/17 [Novolin 70-30 100 Unit/ml Vial] Insulin NPH Hum/Reg Insulin Hm 15 unit SQ QAM 08/09/15 03/20/17 [Novolin 70-30 100 Unit/ml Vial] Ipratropium/Albuterol Neb [Duoneb] 3 ml IH QID PRN 08/09/15 03/20/17 [place]-3/Dha/Epa/Fish Oil [Fish Oil 1 each PO QPM 08/09/15 03/20/17 1,000 mg Softgel] Pantoprazole Sodium [Protonix] 40 mg PO QAM 08/09/15 03/20/17 Pravastatin Sodium [Pravachol] 80 mg PO QAM 08/09/15 03/20/17 Thiamine HCl [Vitamin B-1] 50 mg PO QAM 08/09/15 03/20/17 Vitamin E Mixed [Vitamin E] 400 unit PO QPM 08/09/15 03/20/17 Gabapentin [Neurontin] 100 mg PO TID 01/20/17 03/20/17 Midodrine [ProAmatine] 5 mg PO BID 01/20/17 03/20/17 Ondansetron HCl 4 mg PO TID PRN 01/21/17 03/20/17 Budesonide/Formoterol 160/4.5 2 puff IH BIDR 02/20/17 03/20/17 [Symbicort 160/4.5] Nadolol [Corgard] 40 mg PO DAILY 02/20/17 03/20/17 Previous Rx's Medication Instructions Recorded amLODIPine [Norvasc] 10 mg PO DAILY 30 Days tablet 08/18/15 Furosemide [Lasix] 80 mg PO BID #60 tablet 01/23/17 Docusate [Colace] 100 mg PO BID #60 capsule 03/17/17 cephALEXin [Keflex] 500 mg PO BID #20 capsule 03/17/17 Allergies Allergy/AdvReac Type Severity Reaction Status Date / Time Cyclobenzaprine Allergy Hives Verified 01/20/17 15:31 [From Flexeril] levofloxacin [From Levaquin] Allergy Hives Verified 01/20/17 15:31 rofecoxib [From Vioxx] Allergy Hives Verified 01/20/17 15:31 codeine AdvReac Difficulty Verified 01/20/17 15:31 [From Tylenol-Codeine #3] Breathing All systems ED: reviewed and negative except as stated. Review of Systems: As Per HPI Constitutional: Denies: fever, chills Eyes: Denies: vision change Cardiovascular: Denies: chest pain Respiratory: Denies: cough Gastrointestinal: Denies: abdominal pain, nausea, vomiting Genitourinary: Reports: other (Foul-smelling urine). Denies: urgency Musculoskeletal: Denies: back pain Neurological: Reports: weakness (Lower extremities), confusion. Denies: headache, numbness, paresthesias Past Medical History - Past Medical History Medical history: Reports: arthritis, asthma, CHF, coronary artery disease, DVT, diabetes, dialysis, hyperlipidemia, hypertension, renal disease Surgical history: Reports: cataract, pacemaker/AICD, other Psychiatric history: Reports: no psych history - Social History Smoking Status: Former smoker Smokeless Tobacco Status: No Alcohol use: Reports: none Drug use: Reports: none Physical Exam General: 76-year-old female, obese, appears slightly confused Head: autraumatic, EOMI, no conjuncitval pallor, no scleral icterus, Neck: neck soft, trachea midline Chest:: Equal chest wall rise Lungs: Normal lungs sounds bilaterally, no wheezes, no respiratory distress Heart: normal heart sounds, normal rate and rhythm, Abdomen: soft, non-tender, no rigidity, no guarding, no rebdound tenderness Lower Extremities: no pedal edema, calves non-tender Integumentary: Skin warm, dry, and intact Neuro: Alert and oriented to person place and time, GCS 15, NIH is 0, strength 5 out of 5 in upper and lower extremities, sensation intact throughout, no pronator drift, cranial nerves II through XII grossly intact. Psych: normal affect, normal mood - General General appearance: alert Course Vital Signs Temperature 97.8 F 03/20/17 09:31 Pulse Rate 89 03/20/17 09:31 Respiratory Rate 20 03/20/17 09:31 Blood Pressure 143/92 03/20/17 09:31 O2 Sat by Pulse Oximetry 94 03/20/17 09:31 Temperature 97.8 F 03/20/17 09:31 Pulse Rate 59 03/20/17 11:59 Respiratory Rate 18 03/20/17 11:59 Blood Pressure 132/53 03/20/17 11:59 O2 Sat by Pulse Oximetry 100 03/20/17 11:59 Oxygen Delivery Oxygen Delivery Nasal Cannula Altered Mental Status - MDM Narrative Medical decision making narrative: 76-year-old female is a bounce back to the emergency department after being seen for constipation and urinary tract infection. As stated by the medical student and patient's who had seen her a few days before that mental status has been worsening, and she appears more confused. We will obtain CT of the head without contrast to rule out intracranial hemorrhage. CT of the head without contrast was negative. Chest x-ray was also obtained and revealed mild to moderate pulmonary vascular congestion with small bilateral pleural effusions. I think that this is all due to volume overload as the patient has a dialysis appointment today that she has not went to yet. The patient's urine reveals moderate blood and leukocyte esterase. I will give this patient of Rocephin IV as previous cultures revealed Escherichia coli, Klebsiella that were all sensitive to Rocephin. Patient does have a leukocytosis of 12.1 this is mild. We are obtaining blood cultures and lactic acid as well. Patient has new hyponatremia of 126. Her blood glucose is only 200 so it would not explain the severe hyponatremia picture. Patient has been given 1 L of normal saline here in the emergency department to address this. I do not think it is appropriate to give this patient hypertonic saline at this time. I spoke with the patient and her regarding admission to the hospital. They agree with the plan. Chest X-Ray 03/20/17 09:39 IMPRESSION: [id number] pulmonary vascular congestion. Possible very small bilateral pleural effusions. Presumed atelectasis in the lateral left lung base. Pneumonia less likely. D/ / Darrion Anaya MD / Darrion Anaya MD Interpreting Provider: Darrion Anaya MD Head CT 03/20/17 09:41 IMPRESSION: No acute intracranial abnormality. D/ / Remy Medina / Remy Medina Interpreting Provider: Remy Medina Vital Signs Temperature 97.8 F 03/20/17 09:31 Pulse Rate 89 03/20/17 09:31 Respiratory Rate 20 03/20/17 09:31 Blood Pressure 143/92 03/20/17 09:31 O2 Sat by Pulse Oximetry 94 03/20/17 09:31 Temperature 97.8 F 03/20/17 09:31 Pulse Rate 75 03/20/17 11:00 Respiratory Rate 22 03/20/17 11:00 Blood Pressure 161/58 03/20/17 11:00 O2 Sat by Pulse Oximetry 98 03/20/17 11:00 Oxygen Delivery Oxygen Delivery Nasal Cannula - Medical Records Medical records reviewed: Yes I reviewed the patient's medical records. - Lab Data Result diagrams: 03/20/17 10:01 03/20/17 10:01 Lab Results 03/20/17 03/20/17 03/20/17 Range/Units 10:01 10:01 10:01 WBC 12.1 H (4.3-11.1) K/mcL RBC 3.14 L (3.82-4.97) M/mcL Hgb 10.3 L (11.5-15.4) g/dL Hct 33.1 L (35.3-44.9) % MCV 105.4 H (83.0-100.0) fL MCH 32.8 (28.0-33.3) pg MCHC 31.1 L (31.6-35.5) g/dL RDW 13.0 (11.5-14.5) % Plt Count 162 (140-400) K/mcL MPV 10.4 (9.4-12.4) fL Immature Gran % 1.3 (0-4) % Seg Neutrophils % 87.6 % Lymphocytes % 5.3 % Monocytes % 5.4 % Eosinophils % 0.2 % Basophils % 0.2 % Neutrophils # 10.6 H (1.6-8.9) K/mcL Lymphocytes # 0.6 (0.6-4.6) K/mcL Monocytes # 0.7 (0.0-1.3) K/mcL Eosinophils # 0.0 (0.0-0.6) K/mcL Basophils # 0.0 (0.0-0.2) K/mcL Nucleated RBCs/100 WBC 0.4 H (0) /100 WBC PT 14.0 H (9.4-12.1) Seconds INR 1.3 APTT 33.9 (26.0-36.0) Seconds Sodium 126 L (136-145) mEq/L Potassium 4.4 (3.5-4.5) mEq/L Chloride 93 L (98-109) mEq/L Carbon Dioxide 22 (19-29) mEq/L BUN 31 H (7-20) mg/dL Creatinine 4.25 H (0.57-1.11) mg/dL Est GFR ( Amer) 12 L (> 60) Est GFR (Non-Af Amer) 10 L (> 60) BUN/Creatinine Ratio 7 (6-26) Glucose 206 H (70-99) mg/dL Calculated Osmolality 275 L (280-300) Calcium 9.4 (8.6-10.8) mg/dL Total Bilirubin 0.5 (0.2-1.2) mg/dL Direct Bilirubin 0.3 (0.0-0.5) mg/dL Indirect Bilirubin 0.2 (0.0-1.2) mg/dL AST 38 H (5-34) Units/L ALT 10 (0-55) Units/L Alkaline Phosphatase 195 H (38-126) Units/L Troponin I (0-0.03) ng/mL B-Natriuretic Peptide (0-100) pg/mL Serum Total Protein 6.8 (6.0-8.3) g/dL Albumin 3.2 L (3.5-5.0) g/dL Globulin 3.6 H (2.4-3.5) g/dL Albumin/Globulin Ratio 0.9 L (1.1-2.2) Ur Specimen Adequacy Urine Color (Yellow) Urine Clarity (Clear) Urine pH (5.0-8.0) pH Units Ur Specific [place] (1.010-1.025) Urine Protein (Neg-Trace) mg/dL Urine Glucose (UA) (Normal) mg/dL Urine Ketones (Negative) mg/dL Urine Blood (Negative) Urine Nitrite (Negative) Urine Bilirubin (Negative) Urine Urobilinogen (Normal) mg/dL Ur Leukocyte Esterase (Negative) Urine Microscopic RBC (0-3) per hpf Urine Microscopic WBC (0-3) per hpf Ur Squamous Epith Cells (None-Few) per lpf Ur Transition Epith Cell (None-Few) per hpf Ur Renal Epithelial Cell (None-Few) per hpf Urine Bacteria (None-Few) per hpf Epithelial Casts (None Seen) per lpf Hyaline Casts (None-Few) per lpf Granular Casts (None Seen) per lpf Urine Yeast Ur Culture Indicated? (NO) 03/20/17 03/20/17 03/20/17 Range/Units 10:01 10:01 10:44 WBC (4.3-11.1) K/mcL RBC (3.82-4.97) M/mcL Hgb (11.5-15.4) g/dL Hct (35.3-44.9) % MCV (83.0-100.0) fL MCH (28.0-33.3) pg MCHC (31.6-35.5) g/dL RDW (11.5-14.5) % Plt Count (140-400) K/mcL MPV (9.4-12.4) fL Immature Gran % (0-4) % Seg Neutrophils % % Lymphocytes % % Monocytes % % Eosinophils % % Basophils % % Neutrophils # (1.6-8.9) K/mcL Lymphocytes # (0.6-4.6) K/mcL Monocytes # (0.0-1.3) K/mcL Eosinophils # (0.0-0.6) K/mcL Basophils # (0.0-0.2) K/mcL Nucleated RBCs/100 WBC (0) /100 WBC PT (9.4-12.1) Seconds INR APTT (26.0-36.0) Seconds Sodium (136-145) mEq/L Potassium (3.5-4.5) mEq/L Chloride (98-109) mEq/L Carbon Dioxide (19-29) mEq/L BUN (7-20) mg/dL Creatinine (0.57-1.11) mg/dL Est GFR ( Amer) (> 60) Est GFR (Non-Af Amer) (> 60) BUN/Creatinine Ratio (6-26) Glucose (70-99) mg/dL Calculated Osmolality (280-300) Calcium (8.6-10.8) mg/dL Total Bilirubin (0.2-1.2) mg/dL Direct Bilirubin (0.0-0.5) mg/dL Indirect Bilirubin (0.0-1.2) mg/dL AST (5-34) Units/L ALT (0-55) Units/L Alkaline Phosphatase (38-126) Units/L Troponin I 0.14 H* (0-0.03) ng/mL B-Natriuretic Peptide 2105 H (0-100) pg/mL Serum Total Protein (6.0-8.3) g/dL Albumin (3.5-5.0) g/dL Globulin (2.4-3.5) g/dL Albumin/Globulin Ratio (1.1-2.2) Ur Specimen Adequacy See below A Urine Color Dark Yellow (Yellow) Urine Clarity Turbid A (Clear) Urine pH 5.5 (5.0-8.0) pH Units Ur Specific [place] 1.024 (1.010-1.025) Urine Protein >=1000 H (Neg-Trace) mg/dL Urine Glucose (UA) 250 H (Normal) mg/dL Urine Ketones Negative (Negative) mg/dL Urine Blood Moderate H (Negative) Urine Nitrite Negative (Negative) Urine Bilirubin Negative (Negative) Urine Urobilinogen Normal (Normal) mg/dL Ur Leukocyte Esterase Large H (Negative) Urine Microscopic RBC 5-15 H (0-3) per hpf Urine Microscopic WBC TNTC H (0-3) per hpf Ur Squamous Epith Cells Many H (None-Few) per lpf Ur Transition Epith Cell Present (None-Few) per hpf Ur Renal Epithelial Cell Present (None-Few) per hpf Urine Bacteria Many H (None-Few) per hpf Epithelial Casts Present H (None Seen) per lpf Hyaline Casts None Seen (None-Few) per lpf Granular Casts Present H (None Seen) per lpf Urine Yeast Test Not Performed Ur Culture Indicated? YES A (NO) - EKG Data EKG attestation: Yes I reviewed and interpreted this EKG. EKG results narrative: EKG #1:[id number] Ventricular rate 60 bpm, WA interval 213 ms, QRS duration 114 ms, QTC 451 ms, QTC 451 ms, right axis axis. Atrial paced rhythm with a ventricular rate of 60 bpm This electrocardiogram is nothing different, compared to a previous one performed on March 17, 2017. EKG #2 10:40 obtained due to rhythm alert, patient did not complain of chest pain, pressure, tightness Ventricular rate 68 bpm, WA interval 201 ms, QRS duration 120, 6, QT 473 ms, QTC 490 ms, right axis. His electrocardiogram does not reveal any acute changes compared to previous one obtained today TPA Checklist - LKW: 3-4.5 hrs Add. Warnings/Precautions Patient/family understanding: The patient/family members have been counseled and understood the risk, benefit , and alternatives of treatment.
[2017-03-20 10:26] LABS: Basophils % 0.2 %; Eosinophils % 0.2 %; Hematocrit 33.1 % (35.3-44.9); Hemoglobin 10.3 g/dL (11.5-15.4); Immature Granulocytes % 1.3 % (0-4); Lymphocytes # 0.6 K/mcL (0.6-4.6); Lymphocytes % 5.3 %; Mean Corpuscular HGB Conc 31.1 g/dL (31.6-35.5); Mean Corpuscular Hemoglobin 32.8 pg (28.0-33.3); Mean Corpuscular Volume 105.4 fL (83.0-100.0); Mean Platelet Volume 10.4 fL (9.4-12.4); Monocytes # 0.7 K/mcL (0.0-1.3); Monocytes % 5.4 %; Neutrophils # 10.6 K/mcL (1.6-8.9); Nucleated Red Blood Cells 0.4 /100 WBC (0); Platelet Count 162 K/mcL (140-400); Red Blood Count 3.14 M/mcL (3.82-4.97); Segmented Neutrophils % 87.6 %
[2017-03-20 10:32] LABS: INR 1.3
[2017-03-20 10:35] LABS: Activated Partial Thrombo Time 33.9 Seconds (26.0-36.0)
[2017-03-20 10:39] LABS: Albumin 3.2 g/dL (3.5-5.0); Albumin/Globulin Ratio 0.9 (1.1-2.2); Bilirubin,Direct 0.3 mg/dL (0.0-0.5); Bilirubin,Indirect 0.2 mg/dL (0.0-1.2); Bilirubin,Total 0.5 mg/dL (0.2-1.2); Calcium 9.4 mg/dL (8.6-10.8); Globulin 3.6 g/dL (2.4-3.5); Potassium 4.4 mEq/L (3.5-4.5); Total Protein 6.8 g/dL (6.0-8.3)
[2017-03-20 11:18] LABS: Bilirubin,Urine Negative (Negative); Blood,Urine Moderate (Negative); Clarity,Urine Turbid (Clear); Color,Urine Dark Yellow (Yellow); Glucose,Urine (UA) 250 mg/dL (Normal); Ketones,Urine Negative (Negative); Leukocyte Esterase,Urine Large (Negative); Nitrite,Urine Negative (Negative); PH,Urine 5.5 pH Units (5.0-8.0); Protein,Urine >=1000 mg/dL (Neg-Trace); Specific Gravity,Urine 1.024 (1.010-1.025); Urobilinogen,Urine Normal (Normal)
[2017-03-20 11:21] LABS: Bacteria,Urine Many per hpf (None-Few); Squamous Epithelial Cell,Urine Many per lpf (None-Few); WBC,Urine TNTC per hpf (0-3)
[2017-03-20 11:38] LABS: Hyaline Casts,Urine None Seen per lpf (None-Few)
[2017-03-20 11:39] LABS: Granular Casts,Urine Present per lpf (None Seen)
[2017-03-20 11:42] LABS: Renal Epithelial Cells,Urine Present per hpf (None-Few); Transitional Epi Cells,Urine Present per hpf (None-Few)
[2017-03-20] MEDS ORDERED: Naloxone 0.4 MG/ML INJ IVP PRN (13:11)
[2017-03-20] MEDS ORDERED: 0.9 % Sodium Chloride 250 ML IVC PRN (13:21)
[2017-03-20] MEDS ORDERED: *HR* Heparin 10,000 UNIT/10 ML VIAL IV PRN (13:21)
[2017-03-20] MEDS ORDERED: 0.9 % Sodium Chloride 1,000 ML PRIME SCH (13:30)
[2017-03-20] MEDS ORDERED: Ondansetron 4 MG/2 ML VIAL IVP PRN (13:31)
[2017-03-20] MEDS ORDERED: Ipratropium/Albuterol Neb 3 ML IH PRN (13:37)
[2017-03-20] MEDS ORDERED: *HR* Dextrose 50 % in Water (Syg) 50 ML SYRINGE IVP PRN (13:56)
[2017-03-20] MEDS ORDERED: D5% in Water 1,000 ML IVC PRN (13:56)
[2017-03-20] MEDS ORDERED: Dextrose Gel 15 GM PO PRN ×2 (13:56)
[2017-03-20] MEDS ORDERED: 0.9 % Sodium Chloride 2,000 ML ONE (13:59)
--- NOTE | 2017-03-20 14:23 | Internal Med History&Physical ---
Date of Encounter: 03/20/17 Time of Encounter: 13:00 Assessment and Plan (1) Metabolic encephalopathy Current visit: No Status: Acute 1 patient had an episode this morning of lethargy and confusion. CT of head was negative suspect this may be related to either UTI or hyponatremia. We will continue with antibiotics as well as she was given 1 L of saline in the ER. She will be dialyzed today we will recheck lab work after dialysis we will also place on seizure precautions (2) UTI (urinary tract infection) Current visit: Yes Status: Acute Patient does have a history of chronic UTIshe was placed on Keflex as an outpatient past cultures grew Escherichia coli and Klebsiella both were sensitive to Rocephin, we will continue with Rocephin for now, pending sensitivities We will monitor CBC Qualifiers: Urinary tract infection type: acute cystitis Hematuria presence: with hematuria Qualified Code(s): N30.01 - Acute cystitis with hematuria (3) CHF (congestive heart failure) Current visit: No Status: Chronic Echo obtained December 2016 LVEF 60%. Normal wall motion.Mild LV concentric hypertrophy. She did have some vascular congestion on her chest x-ray. She is to be dialyzed today. He will continue with her Lasix 80 twice a day Monitor intake and output daily weights Monitor electrolytes and replace as needed Low-sodium diet Continue with oxygen titrated to maintain his to greater than 92% Qualifiers: Congestive heart failure type: diastolic Congestive heart failure chronicity: unspecified congestive heart failure chronicity Qualified Code(s) : I50.30 - Unspecified diastolic (congestive) heart failure (4) DM (diabetes mellitus), type 2 Current visit: No Status: Chronic Accu-Cheks before meals at bedtime with sliding scale insulin Diabetic diet Qualifiers: Diabetes mellitus complication status: with kidney complications Diabetes mellitus complication detail: with nephropathy Diabetes mellitus custodial insulin use: with custodial use Qualified Code(s): E11.21 - Type 2 diabetes mellitus with diabetic nephropathy; Z79.4 - residential (current) use of insulin; Z79.4 - intermission coordinator (current) use of insulin; Z79.4 - intermission coordinator (current) use of insulin; Z79.4 - intermission coordinator (current) use of insulin (5) End-stage renal disease on hemodialysis Current visit: No Status: Chronic Nephrology has been consulted patient will be dialyzed today continue with nephrology's recommendations Monitor intake and output daily weights Monitor electrolytes (6) Elevated troponin Current visit: No Status: Acute (7) CAD (coronary artery disease) Current visit: No Status: Chronic presently stable we will continue with statin and aspirin Nitroglycerin as needed for chest pain In tenuous oxygen Qualifiers: Coronary Disease-Associated Artery/Lesion type: [place] artery [place] vs. transplanted heart: [place] heart Associated angina: without angina Qualified Code(s): I25.10 - Atherosclerotic heart disease of [place] coronary artery without angina pectoris (8) Hyponatremia Current visit: Yes Status: Acute Presently sodium is 126 she did have some confusion this morning however she appears to be back to baseline. She did receive 1 L of 0.9 normal saline in the ER. We will recheck sodium after dialysis Seizure precautions (9) Hypertension Current visit: Yes Status: Acute ontinue with amlodipine as well as Lasix Low-sodium diet Qualifiers: Hypertension type: essential hypertension Qualified Code(s): I10 - Essential (primary) hypertension (10) DVT prophylaxis Current visit: Yes Status: Acute Heparin subcutaneous Internal Medicine - H&P: HPI Chief complaint: AMS Admitted From: Emergency Dept Plans for Post Hospital Care: Home History of present illness: Ms. Hernandez is a 76 year old female past medical history of diastolic heart failure pacemaker/AICD hypertension nonobstructive CAD moderate monitor regurgitation, IDDM COPD and end-stage renal disease on dialysis Saturday. Patient was seen in the ER on Saturday at this facility for constipation and urinary check infection. She was given enema and Keflex for UTI discharged home. Patient does admit she did have a small bowel movement yesterday. According to the he attempted to awake her this morning for her dialysis and she was difficult to arouse and appeared to be confused. She is brought to the ER for evaluation regarding her records CT of head was negative lab work did reveal hyponatremia with sodium 126 as well as some leukocytosis WBC 12.1. UA did reveal moderate amount of blood and leukocyte esterase. She denies any urinary symptoms of urgency frequency burning dysuria or hematuria Previous cultures did not reveal Escherichia coli and Klebsiella which were sensitive to Rocephin she was initiated on Rocephin in the ER and was given 1 L normal saline. ER physician did notify Dr. Bernal who will dialyze inpatient. Patient has been admitted for further workup and evaluation. Presently patient is alert and oriented 3 following simple commands and is appropriate. states she is back to baseline. She is hemodynamically stable at this time I did review this case with Dr. Jackson who agrees with plan. Past Med Surg Social Fam HX - Past Medical History Medical history: arthritis, asthma, CHF, coronary artery disease, DVT, diabetes , dialysis, hyperlipidemia, hypertension, renal disease Psychiatric history: no psych history - Past Surgical History Surgical History: cataract, pacemaker/AICD, other - Social History Smoking Status: Former smoker Smokeless Tobacco Status: No Alcohol use: none Drug use: none - Family History Mother Living Status: Hx Family Cardiac Disorders: Yes Hx Family Respiratory Disorders: No Hx Family Cancer: Yes (skin cancer) Hx Family GI Disorders: No Hx Family Endocrine Disorder: Yes (DM) Hx Family Neuromuscular Disorders: No Hx Family Neurologic Disorders: No Hx Family HEENT Disorders: No Hx Family Autoimmune Disorders: No Father Living Status: Hx Family Cardiac Disorders: No Hx Family Respiratory Disorders: Yes (black lung disease) Hx Family Cancer: No Hx Family GI Disorders: No Hx Family Endocrine Disorder: No Hx Family Neuromuscular Disorders: No Hx Family Neurologic Disorders: No Hx Family HEENT Disorders: No Hx Family Autoimmune Disorders: No Sister Living Status: Still Living Hx Family Cardiac Disorders: No Hx Family Respiratory Disorders: No Hx Family Cancer: No Hx Family GI Disorders: No Hx Family Endocrine Disorder: Yes (DM) Hx Family Neuromuscular Disorders: No Hx Family Neurologic Disorders: No Hx Family HEENT Disorders: No Hx Family Autoimmune Disorders: No Internal Medicine - H&P: Meds Aspirin [Adult Low Dose Aspirin EC] 81 mg PO DAILY 08/09/15 [History] Citalopram [CeleXA] 20 mg PO QAM 08/09/15 [History] Ferrous Sulfate 325 mg PO QAM 08/09/15 [History] Insulin NPH Hum/Reg Insulin Hm [Novolin 70-30 100 Unit/ml Vial] 10 unit SQ QPM 08/09/15 [History] Insulin NPH Hum/Reg Insulin Hm [Novolin 70-30 100 Unit/ml Vial] 15 unit SQ QAM 08/09/15 [History] Ipratropium/Albuterol Neb [Duoneb] 3 ml IH QID PRN 08/09/15 [History] [place]-3/Dha/Epa/Fish Oil [Fish Oil 1,000 mg Softgel] 1 each PO QPM 08/09/15 [ History] Pantoprazole Sodium [Protonix] 40 mg PO QAM 08/09/15 [History] Pravastatin Sodium [Pravachol] 80 mg PO QAM 08/09/15 [History] Thiamine HCl [Vitamin B-1] 50 mg PO QAM 08/09/15 [History] Vitamin E Mixed [Vitamin E] 400 unit PO QPM 08/09/15 [History] amLODIPine [Norvasc] 10 mg PO DAILY 30 Days tablet 08/18/15 [Rx] Gabapentin [Neurontin] 100 mg PO TID 01/20/17 [History] Midodrine [ProAmatine] 5 mg PO BID 01/20/17 [History] Ondansetron HCl 4 mg PO TID PRN 01/21/17 [History] Furosemide [Lasix] 80 mg PO BID #60 tablet 01/23/17 [Rx] Budesonide/Formoterol 160/4.5 [Symbicort 160/4.5] 2 puff IH BIDR 02/20/17 [ History] Nadolol [Corgard] 40 mg PO DAILY 02/20/17 [History] Docusate [Colace] 100 mg PO BID #60 capsule 03/17/17 [Rx] cephALEXin [Keflex] 500 mg PO BID #20 capsule 03/17/17 [Rx] 3 Allergy/AdvReac Type Severity Reaction Status Date / Time Cyclobenzaprine Allergy Hives Verified 01/20/17 15:31 [From Flexeril] levofloxacin [From Levaquin] Allergy Hives Verified 01/20/17 15:31 rofecoxib [From Vioxx] Allergy Hives Verified 01/20/17 15:31 codeine AdvReac Difficulty Verified 01/20/17 15:31 [From Tylenol-Codeine #3] Breathing All Systems PM: A 10-system review of systems was performed and is negative for pertinent findings except as documented above in the HPI. - Constitutional Constitutional: weakness - EENT Eyes: no change in vision, no discharge, no pain, no photophobia Nose, mouth and throat: no dysphagia, no nasal discharge, no neck pain, no sore throat - Cardiovascular Cardiovascular ROS IM: no chest pain, no diaphoresis, no dyspnea, no lightheadedness, no palpitations, no syncope - Respiratory Respiratory: no cough, no dyspnea, no wheezing, no excessive phlegm production - Gastrointestinal Gastrointestinal: constipation, no abdominal pain, no diarrhea, no hematemesis, no hematochezia, no melena, no nausea, no vomiting - Genitourinary Genitourinary: no change in urinary stream, no dysuria, no flank pain, no hematuria - Musculoskeletal Musculoskeletal ROS IM: no numbness, no tingling - Integumentary Integumentary IM: no rash, no unusual bruising - Neurological Neurological ROS: no confusion, no convulsions, no focal weakness, no numbness, no tingling, no tremor(s) - Hematologic/Lymphatic Hematologic/Lymphatic: no easy bruising - Constitutional Vitals: Temp Pulse Resp BP Pulse Ox 97.2 F L 60 16 144/57 99 03/20/17 13:44 03/20/17 13:44 03/20/17 13:44 03/20/17 13:44 03/20/17 13:44 General appearance: Present: A&O X 3, answers questions appropriately - Head Head exam: Present: atraumatic, normocephalic - Eye Eye exam: Present: PERRL, conjuntiva pink, sclera anicteric Pupils: Present: PERRL - Neck Neck exam general surgery: Present: supple, trachea midline. Absent: lymphadenopathy - Respiratory Respiratory exam: Present: CTAB. Absent: accessory muscle use, rales, rhonchi, wheezes - Cardiovascular Cardiovascular exam: Present: RRR, +S1, +S2. Absent: diastolic murmur, gallop, rubs, systolic murmur - GI/Abdominal GI/Abdominal exam: Present: normal bowel sounds, soft, no peritoneal signs. Absent: distended, tenderness - Extremities Exam Extremities exam: Present: warm, radial pulses palpable and symmetrical. Absent : calf tenderness, cyanotic, pedal edema - Neurological Exam Neurological exam: Present: CN II-XII intact, oriented X3, no focal deficits. Absent: pronater drift, facial droop, speech deficit - Skin Skin exam: Present: dry, intact Internal Med - H&P Results - Labs CBC & Chem 7: 03/20/17 10:01 03/20/17 10:01 - Diagnostic Studies Other Images Additional comments: Chest X-Ray 03/20/17 09:39 IMPRESSION: [id number] pulmonary vascular congestion. Possible very small bilateral pleural effusions. Presumed atelectasis in the lateral left lung base. Pneumonia less likely. D/ / Darrion Anaya MD / Darrion Anaya MD Interpreting Provider: Darrion Anaya MD Head CT 03/20/17 09:41 IMPRESSION: No acute intracranial abnormality. D/ / Remy Medina / Remy Medina Interpreting Provider: Remy Medina
--- NOTE | 2017-03-20 16:52 | Electrocardiograph Report ---
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
[2017-03-20 17:18] LABS: Hepatitis B Surface Antibody 1.24 mIU/mL; Hepatitis B Surface Antigen Nonreactive (Nonreactive)
[2017-03-20] MEDS ORDERED: (Omega-3/Dha/Epa/Fish Oil [Fish Oil 1,000 Mg Softgel]) PO SCH (18:00)
[2017-03-20] MEDS: *HR* Heparin 5,000 UNIT/ML VIAL SQ SCH (18:05)
[2017-03-20] MEDS: Gabapentin 100 MG CAPSULE PO SCH ×2 (18:05→22:35)
[2017-03-20] MEDS: Insulin LISPRO 300 UNITS/3 ML VIAL SQ SCH ×2 (18:05→22:36)
[2017-03-20] MEDS: Budesonide/Formoterol 160/4.5 MDI IH SCH (20:59)
[2017-03-20] MEDS ORDERED: Furosemide 40 MG TABLET PO SCH (21:00)
[2017-03-21 03:07] LABS: Basophils # 0.1 K/mcL (0.0-0.2); Basophils % 0.5 %; Eosinophils # 0.1 K/mcL (0.0-0.6); Eosinophils % 0.5 %; Hematocrit 30.6 % (35.3-44.9); Hemoglobin 9.3 g/dL (11.5-15.4); Immature Granulocytes % 1.1 % (0-4); Lymphocytes # 1.2 K/mcL (0.6-4.6); Lymphocytes % 10.4 %; Mean Corpuscular HGB Conc 30.4 g/dL (31.6-35.5); Mean Corpuscular Hemoglobin 33.2 pg (28.0-33.3); Mean Corpuscular Volume 109.3 fL (83.0-100.0); Mean Platelet Volume 11.2 fL (9.4-12.4); Monocytes # 1.2 K/mcL (0.0-1.3); Monocytes % 10.7 %; Neutrophils # 8.5 K/mcL (1.6-8.9); Nucleated Red Blood Cells 0.2 /100 WBC (0); Platelet Count 172 K/mcL (140-400); Red Cell Distribution Width 13.1 % (11.5-14.5); Segmented Neutrophils % 76.8 %
[2017-03-21 03:21] LABS: Calcium 8.6 mg/dL (8.6-10.8); Magnesium 2.2 mg/dL (1.6-2.6)
[2017-03-21 03:22] LABS: Potassium 4.1 mEq/L (3.5-4.5)
[2017-03-21] MEDS: *HR* Heparin 5,000 UNIT/ML VIAL SQ SCH (05:52)
[2017-03-21] MEDS: Insulin LISPRO 300 UNITS/3 ML VIAL SQ SCH ×4 (08:06→22:30)
[2017-03-21] MEDS: Furosemide 40 MG TABLET PO SCH ×2 (08:38→17:16)
[2017-03-21] MEDS: Thiamine (B-1) 100 MG TABLET PO SCH (08:38)
[2017-03-21] MEDS: Aspirin Enteric Coated 81 MG Tablet PO SCH (08:38)
[2017-03-21] MEDS: amLODIPine 5 MG TABLET PO SCH (08:38)
[2017-03-21] MEDS: Gabapentin 100 MG CAPSULE PO SCH ×3 (08:38→21:11)
--- NOTE | 2017-03-21 09:38 | Nephrology Consult Note ---
Date of Encounter: 03/21/17 Time of Encounter: 09:05 Assessment and Plan (1) End-stage renal disease on hemodialysis Current Visit: No Status: Chronic ESRD, no HD today, keeping MWF schedule. Head CT no acute process, may be related to UTI. Mentation not quite at known patient baseline. Continue Rocephin. Will do CT abd/pelvis for right flank pain. History of Present Illness - Reason for Consult end stage renal disease - History of Present Illness Ms. Hernandez is a 76 year old female with ESRD who dialyzes at [facility] on MWF, last dialysis was here at [facility] yesterday. Other PMH- arthritis, asthma, CHF, coronary artery disease, DVT, diabetes, dialysis, hyperlipidemia, hypertension, cataract, pacemaker/AICD. Patient was brought to ER with mental status changes noted by . Patient has prior history of UTI's and was currently being treated outpatient with Keflex. Urine culture pending. Prior cultures grew Escherichia coli and Klebsiella both sensitive to Rocephin, which is current Atb coverage. CXR-opacities LL base suggestive of PNA or atalectasis. CT of head no acute process. This morning patient is complaing of right flank discomfort. Daughter at bedside, states mother was at [facility] ER on Saturday and given enema for constipation. Obese abdomen, soft, hypo BS, no guarding. Patient is well known, this morning appropriate conversation but not quite at known mental status baseline. Past Med Surg Social Fam HX - Past Medical History Medical history: arthritis, asthma, CHF, coronary artery disease, DVT, diabetes , dialysis, hyperlipidemia, hypertension, renal disease Psychiatric history: no psych history - Past Surgical History Surgical History: cataract, pacemaker/AICD, other - Social History Smoking Status: Former smoker Smokeless Tobacco Status: No Alcohol use: none Drug use: none - Family History Mother Living Status: Hx Family Cardiac Disorders: Yes Hx Family Respiratory Disorders: No Hx Family Cancer: Yes (skin cancer) Hx Family GI Disorders: No Hx Family Endocrine Disorder: Yes (DM) Hx Family Neuromuscular Disorders: No Hx Family Neurologic Disorders: No Hx Family HEENT Disorders: No Hx Family Autoimmune Disorders: No Father Living Status: Hx Family Cardiac Disorders: No Hx Family Respiratory Disorders: Yes (black lung disease) Hx Family Cancer: No Hx Family GI Disorders: No Hx Family Endocrine Disorder: No Hx Family Neuromuscular Disorders: No Hx Family Neurologic Disorders: No Hx Family HEENT Disorders: No Hx Family Autoimmune Disorders: No Sister Living Status: Still Living Hx Family Cardiac Disorders: No Hx Family Respiratory Disorders: No Hx Family Cancer: No Hx Family GI Disorders: No Hx Family Endocrine Disorder: Yes (DM) Hx Family Neuromuscular Disorders: No Hx Family Neurologic Disorders: No Hx Family HEENT Disorders: No Hx Family Autoimmune Disorders: No Medications and Allergies Aspirin [Adult Low Dose Aspirin EC] 81 mg PO DAILY 08/09/15 [History] Citalopram [CeleXA] 20 mg PO QAM 08/09/15 [History] Ferrous Sulfate 325 mg PO QAM 08/09/15 [History] Insulin NPH Hum/Reg Insulin Hm [Novolin 70-30 100 Unit/ml Vial] 10 unit SQ QPM 08/09/15 [History] Insulin NPH Hum/Reg Insulin Hm [Novolin 70-30 100 Unit/ml Vial] 15 unit SQ QAM 08/09/15 [History] Ipratropium/Albuterol Neb [Duoneb] 3 ml IH QID PRN 08/09/15 [History] [place]-3/Dha/Epa/Fish Oil [Fish Oil 1,000 mg Softgel] 1 each PO QPM 08/09/15 [ History] Pantoprazole Sodium [Protonix] 40 mg PO QAM 08/09/15 [History] Pravastatin Sodium [Pravachol] 80 mg PO QAM 08/09/15 [History] Thiamine HCl [Vitamin B-1] 50 mg PO QAM 08/09/15 [History] Vitamin E Mixed [Vitamin E] 400 unit PO QPM 08/09/15 [History] amLODIPine [Norvasc] 10 mg PO DAILY 30 Days tablet 08/18/15 [Rx] Gabapentin [Neurontin] 100 mg PO TID 01/20/17 [History] Midodrine [ProAmatine] 5 mg PO BID 01/20/17 [History] Ondansetron HCl 4 mg PO TID PRN 01/21/17 [History] Furosemide [Lasix] 80 mg PO BID #60 tablet 01/23/17 [Rx] Budesonide/Formoterol 160/4.5 [Symbicort 160/4.5] 2 puff IH BIDR 02/20/17 [ History] Nadolol [Corgard] 40 mg PO DAILY 02/20/17 [History] Docusate [Colace] 100 mg PO BID #60 capsule 03/17/17 [Rx] cephALEXin [Keflex] 500 mg PO BID #20 capsule 03/17/17 [Rx] 3 Allergy/AdvReac Type Severity Reaction Status Date / Time Cyclobenzaprine Allergy Hives Verified 01/20/17 15:31 [From Flexeril] levofloxacin [From Levaquin] Allergy Hives Verified 01/20/17 15:31 rofecoxib [From Vioxx] Allergy Hives Verified 01/20/17 15:31 codeine AdvReac Difficulty Verified 01/20/17 15:31 [From Tylenol-Codeine #3] Breathing Review of Systems All Systems: reviewed and no additional remarkable complaints except as stated Exam - Vital Signs Vital signs: Initial Vital Signs Temp Pulse Resp BP Pulse Ox 97.8 F 89 20 143/92 94 03/20/17 09:31 03/20/17 09:31 03/20/17 09:31 03/20/17 09:31 03/20/17 09:31 Vital Signs - Last 8 Hours Temp Pulse Resp BP Pulse Ox 03/21/17 07:17 98.6 F 60 17 99/40 99 03/21/17 03:55 98.7 F 60 18 111/42 99 Intake and Output 03/20/17 03/21/17 03/21/17 23:59 07:59 15:59 Intake Total 60 / 60 Output Total 1600 / 1600 Balance -1540 / -1540 Intake: Oral 60 / 60 Output: Total Dialysis (HD) Output 1600 / 1600 Other: Weight 83.688 kg Blood Glucose* 204 127 Hemodialysis Net Fluid Removed 1000 (mL) Patient Weight 03/21/17 23:59 Weight 83.688 kg - General Appearance General appearance: well-developed, well-nourished, appears started age, obese EENT: mucous membranes moist Neck: no JVD Respiratory: clear Cardiology: edema, regular rate, regular rhythm Additional Comments: mild Gastrointestinal: hypoactive bowel sounds, no tenderness, no guarding Integumentary: warm and dry Psychiatric: mood/affect appropriate, cooperative Results - Lab Results 03/21/17 02:58 03/21/17 02:58 Most recent lab results Calcium 8.6 mg/dL (8.6-10.8) 03/21/17 02:58 Magnesium 2.2 mg/dL (1.6-2.6) 03/21/17 02:58 Consult Discharge Plan - Plan Referrals: Velma Maldonado, NOEMI [Primary Care Provider] -
--- NOTE | 2017-03-21 09:52 | Internal Med Progress Note ---
<Anish Rodriges - Last Filed: 03/21/17 16:18> Date of Encounter: 03/21/17 Time of Encounter: 09:40 - Assessment and plan (1) NSTEMI (non-ST elevated myocardial infarction) Current Visit: Yes Status: Acute Assessment and plan: Troponin levels serially increasing; cardiology consulted despite no angina equivalents and no specific acute ischemic EKG changes Per Cardiology consult note: "-Will start heparin drip. -Will make NPO after midnight. -Plan for C tomorrow. -Will obtain records from primary center human resources manager office. -Will consult cardiac rehab." (2) Altered mental state Current Visit: Yes Status: Acute Assessment and plan: Improving; AOx3 Likely multifactorial including hyponatremia, volume overload 2/2 CHF/ESRD-HD, and possible UTI Continue to address primary factors and monitor PT/OT/SW consultations in progress Qualifiers: Altered mental status type: unspecified Qualified Code(s): R41.82 - Altered mental status, unspecified (3) Hyponatremia Current Visit: Yes Status: Acute Assessment and plan: Likely hypervolemic based on patient history and plasma osmolality (278) Initially 126 in ED; now 133 which is approximate baseline Patient ESRD on HD 3x/week and received HD between Na+ checks Monitor bmp in AM (4) End-stage renal disease on hemodialysis Current Visit: Yes Status: Chronic Assessment and plan: Nephro consulted; HD completed which is usually 3x/week Cont monitoring of weight & I/O Monitor BMP qAM Per nephrology -- cont usual MWF HD and obtain CT Abd/Pelv for acute right flank discomfort (5) Acute congestive heart failure Current Visit: No Status: Acute Assessment and plan: cont Lasix 80mg BID cont monitoring of I/O & daily weight checks check BMP qAM continue oxygen supplementation as needed to maintain SpO2 of 92%; patient is on home 02 at 2 L per minute flow rate Qualifiers: Congestive heart failure type: diastolic Qualified Code(s): I50.31 - Acute diastolic (congestive) heart failure (6) UTI (urinary tract infection) Current Visit: Yes Status: Acute Assessment and plan: Continue IV Rocephin reassess antibiotic choice pending urine culture VSS at this time Qualifiers: Urinary tract infection type: acute cystitis Hematuria presence: with hematuria Qualified Code(s): N30.01 - Acute cystitis with hematuria (7) CAD (coronary artery disease) Current Visit: No Status: Chronic Assessment and plan: increasing troponin as stated above, however, patient is without any chest pain or angina equivalents at this time cardiology is consulting on this case due to upward trend of troponins continue current meds including statin & aspirin continue on telemetry Qualifiers: Coronary Disease-Associated Artery/Lesion type: [place] artery [place] vs. transplanted heart: [place] heart Associated angina: without angina Qualified Code(s): I25.10 - Atherosclerotic heart disease of [place] coronary artery without angina pectoris (8) Diabetes mellitus type 2, insulin dependent Current Visit: No Status: Chronic Assessment and plan: Continue insulin regimen continue blood sugar checks qACHS SSI as needed cont diabetic diet (9) Hypertension Current Visit: Yes Status: Acute Assessment and plan: Blood pressure stable with occasional mild elevations of systolic BP continue current medications including amlodipine and Lasix Qualifiers: Hypertension type: essential hypertension Qualified Code(s): I10 - Essential (primary) hypertension (10) DVT prophylaxis Current Visit: Yes Status: Acute Assessment and plan: Continue sub Q heparin - Time Spent With Patient 0935 less than 15 minutes - Subjective Interval history: VSS overnight. Per nursing, short period of tachycardia (120s) which resolved spontaneously. Daughter present unable to comment on current condition stating she has not been around long enough to talk to patient to gauge mentation. Chief concerns have been that patient was non-sensical and weak. Patient complains only of constipation pain at this time. She does not feel more short of air than usual. Denies chest pain or palpitations. Patient does live at home with ; she sleeps in a recliner due to comfort and is usually able to transfer between chairs on her own. She does use motorized chair to get around. Otherwise, states is able to achieve ADLs usually. No other complaints. Troponins were noted to continually trend upward, despite lack of symptomatic cardiac equivalents or acute EKG changes. Cardiology consulted on case. - Constitutional Vitals: Temp Pulse Resp BP Pulse Ox 98.6 F 60 17 99/40 99 03/21/17 07:17 10 07:17 03/21/17 07:17 03/21/17 07:17 03/21/17 07:17 General appearance: Present: A&O X 3, pleasant, no acute distress, answers questions appropriately - Head Head exam: Present: atraumatic, normocephalic - Eye Eye exam: Present: PERRL, conjuntiva pink, sclera anicteric - Neck Neck exam general surgery: Present: supple, trachea midline. Absent: lymphadenopathy - Respiratory Additional comments: mild increase of respiratory effort, on O2 via NC breathing through mouth, speaks full sentences, sounds somewhat diminished but CTA b/l without wheezes/ rales/rhonchi - Cardiovascular Cardiovascular exam: Present: RRR, +S1, +S2, systolic murmur (LUSB Grade II). Absent: diastolic murmur, gallop, rubs - GI/Abdominal GI/Abdominal exam: Present: normal bowel sounds, soft, no peritoneal signs. Absent: distended, firm, guarding, rigid, tenderness - Extremities Exam Extremities exam: Present: warm. Absent: calf tenderness, cyanotic Additional comments: trace edema bilaterally with chronic skin color change right leg wrapped with non-stick 4x4 & JAYLIN bandage due to stated skin lesion; approx 2-3cm darkened area of left anterior tibia without apparent skin break - Neurological Exam Neurological exam: Present: oriented X3. Absent: facial droop, speech deficit Additional comments: no gross motor deficits - Skin Skin exam: Present: dry, intact. Absent: cyanosis, diaphoretic, pallor Internal Medicine: Result - Labs CBC & Chem 7: 03/21/17 02:58 03/21/17 02:58 Labs: Short CBC 03/21/17 Range/Units 02:58 WBC 11.1 (4.3-11.1) K/mcL Hgb 9.3 L (11.5-15.4) g/dL Hct 30.6 L (35.3-44.9) % Plt Count 172 (140-400) K/mcL Neutrophils # 8.5 (1.6-8.9) K/mcL BMP 03/20/17 03/21/17 20:52 02:58 Sodium 133 L D 133 L Potassium 4.1 Chloride 100 Carbon Dioxide 22 BUN 13 D Creatinine 2.69 H Glucose 135 H Calcium 8.6 Cardiac Enzymes 03/20/17 03/20/17 03/21/17 Range/Units 14:59 20:52 02:58 Troponin I 0.75 H* 1.12 H* 1.25 H* (0-0.03) ng/mL - ABG Interpretation ABG results: PT/INR, D-dimer PT 14.0 Seconds (9.4-12.1) H 03/20/17 10:01 Consult Discharge Plan - Plan Referrals: Velma Maldonado, [employer] [Primary Care Provider] - <Jean Platt - Last Filed: 03/21/17 16:37> Date of Encounter: 03/21/17 - Constitutional Vitals: Temp Pulse Resp BP Pulse Ox 98.6 F 59 17 111/65 98 03/21/17 15:59 03/21/17 15:59 03/21/17 15:59 03/21/17 15:59 03/21/17 15:59 Internal Medicine: Result - Labs CBC & Chem 7: 03/21/17 02:58 03/21/17 02:58 Labs: Short CBC 03/21/17 Range/Units 02:58 WBC 11.1 (4.3-11.1) K/mcL Hgb 9.3 L (11.5-15.4) g/dL Hct 30.6 L (35.3-44.9) % Plt Count 172 (140-400) K/mcL Neutrophils # 8.5 (1.6-8.9) K/mcL BMP 03/20/17 03/21/17 20:52 02:58 Sodium 133 L D 133 L Potassium 4.1 Chloride 100 Carbon Dioxide 22 BUN 13 D Creatinine 2.69 H Glucose 135 H Calcium 8.6 Cardiac Enzymes 03/20/17 03/21/17 03/21/17 Range/Units 20:52 02:58 10:05 Troponin I 1.12 H* 1.25 H* 1.40 H* (0-0.03) ng/mL - ABG Interpretation ABG results: PT/INR, D-dimer PT 13.2 Seconds (9.4-12.1) H 03/21/17 15:20 - Impressions Impressions Abdomen/Pelvis CT 03/21/17 13:30 IMPRESSION: 1. Small right pleural effusion and bibasilar airspace opacities could be due to atelectasis. 2. Prominent intrahepatic biliary ducts. Correlate with liver function tests for any evidence of biliary obstruction. 3. Partially calcified collection in the inferior left pleural space is stable since 2014. 4. Severe compression fracture of L3, unchanged since 11/06/2016. 5. Severe atherosclerosis of the abdominal and pelvic branch vessels. D/ / Rich Hatch MD / Rich Hatch MD Interpreting Provider: Rich Hatch MD - Attending Attestation I examined this patient on 03/21/17 and my medical decision-making was reviewed with the Resident Physician. I agree with the documented findings, disposition and treatment plan as described except to the extent set forth below. Seen and evaluated at bedside with daughter She complained of R flank pain. She is AAOX3 PMH of DM, HTN, ESRD on HD, , CHFpEF, Bed-bound at home , admitted for acute metabolic encephalopathy, hyponatremia, Incidental finding of elevated troponin which continues to trend up, Peak for now 1.4, cardiology consulted, Physical exam: AAOX3, no breathlessness , no distress, chest is clear to auscultation anteriorly, HS S1, S2 only, no m. No chest wall tenderness. Abdomen is soft. LLE with erythema, swelling and differential warmth. RLE in jaylin dressing Labs and Imaging reviewed: Troponin 1.4(1.25), BUN/Cr improving, Leukocytosis improving Abd CT with non-specific findings A: NSTEMI/Acute encephalopathy, Suspected UTI/Acute on chronic CHF/ESRD on HD/ HTN Per cardio for cath a.m, continue current management, follow cultures. Heparin drip has been started, monitor for bleeding. Renal function is at baseline Rest of details as in resident physician's documentation
[2017-03-21] MEDS: Budesonide/Formoterol 160/4.5 MDI IH SCH ×2 (10:53→20:29)
[2017-03-21] MEDS: Sennosides/Docusate Sodium TABLET PO SCH ×2 (12:29→21:11)
--- NOTE | 2017-03-21 13:40 | Cardiology Consult Note ---
<DustinRamona - Last Filed: 03/21/17 14:33> Date of Encounter: 03/21/17 Time of Encounter: 13:00 Assessment and Plan (1) NSTEMI (non-ST elevated myocardial infarction) Current Visit: Yes Status: Acute Per cardiology: -Troponins with ischemic pattern. -Troponins 0.14, 0.75, 1.12, 1.25, 1.4. -Denies chest pain or increased shortness of breath. -Reports increased fatigue over the last several months. -ECG with no acute ischemic changes. -Denies history of CAD. States may have had a LHC in 1999. -Will start heparin drip. -Will make NPO after midnight. -PLan for LHC tomorrow. -Will obtain records from primary uppers edge burnisher office. -Will consult cardiac rehab. (2) End-stage renal disease on hemodialysis Current Visit: Yes Status: Chronic Per cardiology: -Known ESRD. On HD. -Management per primary and nephrology services. (3) CHF (congestive heart failure) Current Visit: No Status: Chronic Per cardiology: -Chronic diastolic CHF. -Chest x-ray with mild-moderate pulmonary vascular congestion. -Reports shortness of breath at baseline. -BNP 2105. -On lasix 80mg po BID. -Mild bilateral pedal edema noted. -On dialysis. -Currently net negative 200ml. -Baseline weight 84.5kg, weight today 83.7kg. -Will continue to monitor. Qualifiers: Congestive heart failure type: diastolic Congestive heart failure chronicity: acute on chronic Qualified Code(s): I50.33 - Acute on chronic diastolic (congestive) heart failure Discussion w patient/family: The assessment and plan as outlined above was discussed with the patient and/or family members who expressed understanding and agreement. All questions were answered. Thank you for involving us in the care of your patient. Please call with any questions. Discussed and reviewed with . History of Present Illness Consult date: 03/21/17 Requesting physician: Anish Rodriges Consult reason: elevated troponin Chief complaint: AMS History of present illness: Ms. Hernandez is a 76 year old female with a relevant past medical history of ESRD on HD, DMII, hyperlipidemia, DVT, RA, anemia, hyperlipidemia. Patient presented to [facility] due to family noticed changes in mental status. Cardiology has been consulted for elevated troponin. Patient denies chest pain or increased shortness of breath. Patient does report increased fatigue. Patient denies history of CAD. Patient and family report they think she underwent LHC in 1999 with no lesions. Past Med Surg Social Fam HX - Past Medical History Attestation: Yes The following information was validated with the patient. Source: patient, old records reviewed, obtained from family Medical history: arthritis, asthma, CHF, coronary artery disease, DVT, diabetes , dialysis, hyperlipidemia, hypertension, renal disease Psychiatric history: no psych history - Past Surgical History Surgical History: cataract, pacemaker/AICD, other - Social History Smoking Status: Former smoker Smokeless Tobacco Status: No Alcohol use: none Drug use: none - Family History Mother Living Status: Hx Family Cardiac Disorders: Yes Hx Family Respiratory Disorders: No Hx Family Cancer: Yes (skin cancer) Hx Family GI Disorders: No Hx Family Endocrine Disorder: Yes (DM) Hx Family Neuromuscular Disorders: No Hx Family Neurologic Disorders: No Hx Family HEENT Disorders: No Hx Family Autoimmune Disorders: No Father Living Status: Hx Family Cardiac Disorders: No Hx Family Respiratory Disorders: Yes (black lung disease) Hx Family Cancer: No Hx Family GI Disorders: No Hx Family Endocrine Disorder: No Hx Family Neuromuscular Disorders: No Hx Family Neurologic Disorders: No Hx Family HEENT Disorders: No Hx Family Autoimmune Disorders: No Sister Living Status: Still Living Hx Family Cardiac Disorders: No Hx Family Respiratory Disorders: No Hx Family Cancer: No Hx Family GI Disorders: No Hx Family Endocrine Disorder: Yes (DM) Hx Family Neuromuscular Disorders: No Hx Family Neurologic Disorders: No Hx Family HEENT Disorders: No Hx Family Autoimmune Disorders: No Medications and Allergies Aspirin [Adult Low Dose Aspirin EC] 81 mg PO DAILY 08/09/15 [History] Citalopram [CeleXA] 20 mg PO QAM 08/09/15 [History] Ferrous Sulfate 325 mg PO QAM 08/09/15 [History] Insulin NPH Hum/Reg Insulin Hm [Novolin 70-30 100 Unit/ml Vial] 10 unit SQ QPM 08/09/15 [History] Insulin NPH Hum/Reg Insulin Hm [Novolin 70-30 100 Unit/ml Vial] 15 unit SQ QAM 08/09/15 [History] Ipratropium/Albuterol Neb [Duoneb] 3 ml IH QID PRN 08/09/15 [History] Dresser-3/Dha/Epa/Fish Oil [Fish Oil 1,000 mg Softgel] 1 each PO QPM 08/09/15 [ History] Pantoprazole Sodium [Protonix] 40 mg PO QAM 08/09/15 [History] Pravastatin Sodium [Pravachol] 80 mg PO QAM 08/09/15 [History] Thiamine HCl [Vitamin B-1] 50 mg PO QAM 08/09/15 [History] Vitamin E Mixed [Vitamin E] 400 unit PO QPM 08/09/15 [History] amLODIPine [Norvasc] 10 mg PO DAILY 30 Days tablet 08/18/15 [Rx] Gabapentin [Neurontin] 100 mg PO TID 01/20/17 [History] Midodrine [ProAmatine] 5 mg PO BID 01/20/17 [History] Ondansetron HCl 4 mg PO TID PRN 01/21/17 [History] Furosemide [Lasix] 80 mg PO BID #60 tablet 01/23/17 [Rx] Budesonide/Formoterol 160/4.5 [Symbicort 160/4.5] 2 puff IH BIDR 02/20/17 [ History] Nadolol [Corgard] 40 mg PO DAILY 02/20/17 [History] Docusate [Colace] 100 mg PO BID #60 capsule 03/17/17 [Rx] cephALEXin [Keflex] 500 mg PO BID #20 capsule 03/17/17 [Rx] 3 Allergy/AdvReac Type Severity Reaction Status Date / Time Cyclobenzaprine Allergy Hives Verified 01/20/17 15:31 [From Flexeril] levofloxacin [From Levaquin] Allergy Hives Verified 01/20/17 15:31 rofecoxib [From Vioxx] Allergy Hives Verified 01/20/17 15:31 codeine AdvReac Difficulty Verified 01/20/17 15:31 [From Tylenol-Codeine #3] Breathing All Systems Review: A 10-system review of systems was performed and is negative for pertinent findings except as documented above in the HPI. - Constitutional Constitutional: fatigue - Cardiovascular Cardiovascular: as per HPI Physical Examination Vital Signs, Last 4 Hours Temp Pulse Resp BP Pulse Ox 03/21/17 10:58 18 99 03/21/17 10:43 98.4 F 89 17 147/75 99 03/21/17 10:10 127/67 General: Conversant, No Apparent Distress HEENT: Atraumatic, Normocephaly, Mucus Membranes Moist Neck: No JVD, Normal carotid pulses Cardiac: Reg Rate and Rhythm, Normal S1 and S2, No Murmur Lungs: Normal Breath Sounds, No Wheeze, Rales, Rhonchi Neuro: Alert and responsive, No focal deficits noted Abdomen: Soft, Non-Tender Skin: No rashes noted on visualized skin Musculoskeletal: No Chest Wall Tenderness Extremities: No Clubbing, No Cyanosis, Normal Pulses, Other ( Mild bilateral pedal edema noted. ) Results 03/21/17 02:58 03/21/17 02:58 Lab Results Active Medications Albuterol/Ipratropium (Duoneb) 3 ml IH QID PRN PRN Reason: Shortness Of Breath Stop: 09/19/17 13:38 Amlodipine Besylate (Norvasc) 10 mg PO DAILY [facility] PRN Reason: Protocol Stop: 09/20/17 09:01 Last Admin: 03/21/17 08:38 Dose: 10 mg Aspirin (Aspirin Ec) 81 mg PO DAILY [facility] Stop: 09/20/17 09:01 Last Admin: 03/21/17 08:38 Dose: 81 mg Atorvastatin Calcium (Lipitor) 20 mg PO QAM [facility] Stop: 09/20/17 09:01 Last Admin: 03/21/17 08:37 Dose: 20 mg Budesonide/Formoterol Fumarate (Symbicort) 2 puff IH BIDR [facility] PRN Reason: Protocol Stop: 09/19/17 22:01 Last Admin: 03/21/17 10:53 Dose: 2 puff Citalopram Hydrobromide (Celexa) 20 mg PO QAM [facility] Stop: 09/20/17 09:01 Last Admin: 03/21/17 08:38 Dose: 20 mg Dextrose/Water (Dextrose 50% (Syg)) 25 ml IVP AD PRN PRN Reason: Hypoglycemia Stop: 09/19/17 13:57 Docusate Sodium (Colace) 100 mg PO BID [facility] PRN Reason: Protocol Stop: 09/19/17 21:01 Last Admin: 03/21/17 08:38 Dose: 100 mg Ferrous Sulfate (Ferrous Sulfate) 325 mg PO QAM [facility] Stop: 09/20/17 09:01 Last Admin: 03/21/17 08:38 Dose: 325 mg Furosemide (Lasix) 80 mg PO BIDDIURETIC [facility] Stop: 09/20/17 08:28 Last Admin: 03/21/17 08:38 Dose: 80 mg Gabapentin (Neurontin) 100 mg PO TID [facility] Stop: 09/19/17 15:01 Last Admin: 03/21/17 08:38 Dose: 100 mg Glucagon (Glucagen) 1 mg IM ONCE PRN PRN Reason: Hypoglycemia Stop: 09/19/17 13:57 Glucose (Gluctose) 15 gm PO ONCE PRN PRN Reason: Hypoglycemia Stop: 09/19/17 13:57 Glucose (Gluctose) 30 gm PO ONCE PRN PRN Reason: Hypoglycemia Stop: 09/19/17 13:57 Heparin Sodium (Porcine) (Heparin) 0 unit IV ONCE PRN PRN Reason: Hemodialysis Catheter Packing Heparin Sodium (Porcine) (Heparin) 5,000 unit SQ Q12HR [facility] Stop: 09/19/17 18:01 Last Admin: 03/21/17 05:52 Dose: 5,000 unit Sodium Chloride (0.9 % Sodium Chloride) 250 mls @ 937.5 mls/hr IVC .Q16M PRN PRN Reason: Hypotension Stop: 09/19/17 13:22 Sodium Chloride (0.9 % Sodium Chloride) 1,000 mls @ 0 mls/hr PRIME .Q0M [facility] PRN Reason: As Directed Stop: 09/19/17 13:31 Ceftriaxone Sodium 1,000 mg/ (Dextrose) 100 mls @ 200 mls/hr IVPB Q24H [facility] Stop: 09/20/17 12:01 Last Admin: 03/21/17 12:28 Dose: 200 mls/hr Dextrose (Dextrose 5%) 1,000 mls @ 100 mls/hr IVC .Q10H PRN PRN Reason: HYPOGLYCEMIA Stop: 09/19/17 13:57 Insulin Human Lispro (Humalog) 0 units SQ HS [facility] PRN Reason: Protocol Stop: 09/19/17 21:01 Last Admin: 03/20/17 22:36 Dose: 2 units Insulin Human Lispro (Humalog) 0 units SQ TIDAC [facility] PRN Reason: Protocol Stop: 09/19/17 16:31 Last Admin: 03/21/17 12:28 Dose: 2 units Midodrine (Proamatine) 5 mg PO BID [facility] Stop: 09/19/17 21:01 Last Admin: 03/21/17 08:37 Dose: 5 mg Nadolol (Corgard) 40 mg PO DAILY [facility] Stop: 09/20/17 09:01 Last Admin: 03/21/17 08:38 Dose: 40 mg Naloxone HCl (Narcan) 0.4 mg IVP Q2MIN PRN PRN Reason: Opioid Reversal Stop: 09/19/17 13:12 Omeprazole (Prilosec) 20 mg PO 0630 [facility] Stop: 09/20/17 06:31 Last Admin: 03/21/17 05:52 Dose: 20 mg Ondansetron HCl (Zofran) 4 mg IVP Q8HR PRN PRN Reason: Nausea And Vomiting Stop: 09/19/17 13:32 Polyethylene Glycol (Miralax) 17 gm PO DAILY [facility] Stop: 09/19/17 19:46 Last Admin: 03/21/17 11:31 Dose: Not Given Senna/Docusate Sodium (Senna Plus) 1 each PO BID [facility] PRN Reason: Protocol Stop: 09/20/17 10:01 Last Admin: 03/21/17 12:29 Dose: 1 each Thiamine HCl (Vitamin B-1) 50 mg PO QAM [facility] Stop: 09/20/17 09:01 Last Admin: 03/21/17 08:38 Dose: 50 mg Vitamin E (Vitamin E) 400 unit PO QPM [facility] Stop: 09/19/17 18:01 Last Admin: 03/20/17 18:04 Dose: 400 unit Laboratory Tests 03/20/17 03/20/17 03/20/17 10:01 10:01 10:01 WBC 12.1 H Hgb 10.3 L Creatinine 4.25 H Troponin I 0.14 H* B-Natriuretic Peptide 03/20/17 03/20/17 03/20/17 10:01 14:59 20:52 WBC Hgb Creatinine Troponin I 0.75 H* 1.12 H* B-Natriuretic Peptide 2105 H 03/21/17 03/21/17 03/21/17 02:58 02:58 02:58 WBC Hgb 9.3 L Creatinine 2.69 H Troponin I 1.25 H* B-Natriuretic Peptide 03/21/17 10:05 WBC Hgb Creatinine Troponin I 1.40 H* B-Natriuretic Peptide - Imaging and Cardiology Chest Xray: report reviewed Echo: report reviewed - EKG Interpretation EKG results cardiology: personally reviewed (ECG with paced rhythm, HR 68.), other (Telemetry reviewed with average HR previous 12 hours noted to be 67, paced rhythm. PVCs and PACs noted.) Consult Discharge Plan - Plan Referrals: Velma Maldonado, [employer] [Primary Care Provider] - <Sonny Kelly - Last Filed: 03/21/17 16:10> Date of Encounter: 03/21/17 - Attending Attestation I have personally performed a face to face evaluation on this patient. I have reviewed and agree with the care plan. History and Exam by me shows: 76 YOF s/p PPM with multiple CRF's including CKD on HD presents with weakness and SOB. Slight increase from baseline (h/o COPD and asthma) but denies any chest pain. Troponins in an ischemic pattern with a peak of 1.24. Last ECHO 2016 preserved EF at 60%. R/B/A d/ patient and she agrees to proceed with [facility]. Suggested medical management and discussed this with patient and but she will proceed with the [facility]. She has recently recovered from a UTI which usually causes some confusion. She is currently Alert and oriented X 3 but I will discuss the C with her once again in the morning. Assessment and Plan Discussion w patient/family: The assessment and plan as outlined above was discussed with the patient and/or family members who expressed understanding and agreement. All questions were answered. Thank you for involving us in the care of your patient. Please call with any questions. History of Present Illness History of present illness: Ms. Hernandez is a 76 year old female All Systems Review: A 10-system review of systems was performed and is negative for pertinent findings except as documented above in the HPI. Results 03/21/17 02:58 03/21/17 02:58 Lab Results 03/20/17 03/20/17 03/21/17 20:52 20:52 02:58 WBC 11.1 Hgb 9.3 L Hct 30.6 L Plt Count 172 INR APTT Sodium 133 L D Potassium Chloride Carbon Dioxide BUN Creatinine Glucose Calcium Magnesium Troponin I 1.12 H* 10/03/21/17 03/21/17 02:58 02:58 10:05 WBC Hgb Hct Plt Count INR APTT Sodium 133 L Potassium 4.1 Chloride 100 Carbon Dioxide 22 BUN 13 D Creatinine 2.69 H Glucose 135 H Calcium 8.6 Magnesium 2.2 Troponin I 1.25 H* 1.40 H* 03/21/17 15:20 WBC Hgb Hct Plt Count INR 1.2 APTT 30.5 Sodium Potassium Chloride Carbon Dioxide BUN Creatinine Glucose Calcium Magnesium Troponin I
[2017-03-21] MEDS ORDERED: *HR* Heparin 5,000 UNIT/ML VIAL IVP PRN ×2 (14:06)
[2017-03-21] MEDS ORDERED: *HR* Heparin 5,000 UNIT/ML VIAL IVP ONE (14:06)
[2017-03-21] MEDS ORDERED: Heparin 25,000 UNIT/500 ML D5W 25,000 UNIT/500 ML MLS IVC SCH (14:15)
[2017-03-21 15:48] LABS: INR 1.2; Prothrombin Time 13.2 Seconds (9.4-12.1)
[2017-03-21 15:51] LABS: Activated Partial Thrombo Time 30.5 Seconds (26.0-36.0)
--- NOTE | 2017-03-21 17:11 | Electrocardiograph Report ---
[address] [place] [address] Test Date: 2017-03-21 Pat Name: Columba Hernandez Department: 112 Room: 2A Gender: F Petrologist: MIS : [id number] Requested By: Anish Rodriges Order Number: [id number] Reading MD: Sukumar Bah Measurements Intervals [place] Rate: 60 P: 22 [place]: 186 QRS: 117 QRSD: 125 T: 12 QT: 460 QTc: 460 Interpretive Statements ELECTRONIC ATRIAL PACEMAKER POSSIBLE RIGHT VENTRICULAR HYPERTROPHY ANTEROSEPTAL MYOCARDIAL INFARCTION, OF INDETERMINATE AGE Electronically Signed On 03-21-2017 17:09:38 EDT by Sukumar Bah
[2017-03-21 22:29] LABS: Activated Partial Thrombo Time 195.1 Seconds (26.0-36.0)
[2017-03-21 22:45] LABS: Heparin anti-factor XA UFH 0.61 IU/mL (0.30-0.70)
[2017-03-22 05:34] LABS: Basophils # 0.1 K/mcL (0.0-0.2); Basophils % 0.5 %; Eosinophils # 0.3 K/mcL (0.0-0.6); Eosinophils % 1.9 %; Hematocrit 29.2 % (35.3-44.9); Hemoglobin 8.8 g/dL (11.5-15.4); Immature Granulocytes % 1.3 % (0-4); Lymphocytes # 1.9 K/mcL (0.6-4.6); Lymphocytes % 14.7 %; Mean Corpuscular HGB Conc 30.1 g/dL (31.6-35.5); Mean Corpuscular Hemoglobin 33.1 pg (28.0-33.3); Mean Corpuscular Volume 109.8 fL (83.0-100.0); Mean Platelet Volume 10.4 fL (9.4-12.4); Monocytes # 1.7 K/mcL (0.0-1.3); Monocytes % 12.9 %; Nucleated Red Blood Cells 0.4 /100 WBC (0); Platelet Count 192 K/mcL (140-400); Red Blood Count 2.66 M/mcL (3.82-4.97); Segmented Neutrophils % 68.7 %
[2017-03-22 05:41] LABS: Albumin 2.7 g/dL (3.5-5.0); Albumin/Globulin Ratio 0.8 (1.1-2.2); Bilirubin,Total 0.4 mg/dL (0.2-1.2); Calcium 8.7 mg/dL (8.6-10.8); Globulin 3.5 g/dL (2.4-3.5); Potassium 3.5 mEq/L (3.5-4.5); Total Protein 6.2 g/dL (6.0-8.3)
[2017-03-22] MEDS ORDERED: *HR* Heparin 10,000 UNIT/10 ML VIAL IV PRN (05:46)
[2017-03-22] MEDS ORDERED: 0.9 % Sodium Chloride 250 ML IVC PRN (05:46)
[2017-03-22 05:47] LABS: Activated Partial Thrombo Time 129.4 Seconds (26.0-36.0)
[2017-03-22 05:53] LABS: Heparin anti-factor XA UFH 0.48 IU/mL (0.30-0.70)
[2017-03-22] MEDS ORDERED: 0.9 % Sodium Chloride 1,000 ML PRIME SCH (06:00)
[2017-03-22] MEDS: Sennosides/Docusate Sodium TABLET PO SCH ×2 (06:15→22:18)
[2017-03-22] MEDS: Aspirin Enteric Coated 81 MG Tablet PO SCH (06:15)
[2017-03-22] MEDS: Gabapentin 100 MG CAPSULE PO SCH ×3 (06:15→22:18)
[2017-03-22] MEDS: Thiamine (B-1) 100 MG TABLET PO SCH (06:16)
--- NOTE | 2017-03-22 09:02 | Nephrology Progress Note ---
Date of Encounter: 03/22/17 Time of Encounter: 08:40 - Assessment and Plan (1) End-stage renal disease on hemodialysis Current Visit: Yes Status: Chronic ESRD, HD today, keeping MWF schedule, orders given. Head CT no acute process, may be related to UTI. Mentation not quite at known patient baseline. Continue Rocephin. CT abd/pelvis for right flank pain -prominent intrahepatic biliary ducts, bili 0.3, AST 15, ALT 10. Trending elevated trop, scheduled for LHC today. SBP 170-180, Midodrine stopped. Subjective Interval history: Seen on HD.Scheduled for LHC today, increasing trop. Denies chest pain. Objective - Vital Signs Vital signs: Vital Signs Temp Pulse Resp BP Pulse Ox 03/22/17 08:40 145/52 03/22/17 08:10 172/68 03/22/17 07:40 184/69 03/22/17 07:10 180/80 03/22/17 06:40 98.9 F 18 151/60 03/22/17 03:53 98.6 F 66 16 132/65 96 03/21/17 23:31 98.8 F 60 16 107/53 96 03/21/17 20:30 15 99 03/21/17 18:45 98.5 F 75 16 107/53 100 03/21/17 15:59 98.6 F 59 17 111/65 98 03/21/17 10:58 18 99 03/21/17 10:43 98.4 F 89 17 147/75 99 03/21/17 10:10 127/67 Intake and Output 03/21/17 03/22/17 03/22/17 23:59 07:59 15:59 Intake Total 132 / 132 836 / 836 Balance 132 / 132 836 / 836 Intake: IV Fluids 132 / 132 236 / 236 Heparin 25,000 UNIT/500 ML D5W 132 / 132 236 / 236 25,000 unit In 500 ml @ 12 UNIT /KG/HR 20.085 mls/hr IVC .Q24H [facility] Rx#:[id number] Oral 0 / 0 Intake, Rinseback and Flushes 600 / 600 Other: Weight 81.647 kg Blood Glucose* 194 Hemodialysis Net Fluid Removed 867 1738 (mL) Patient Weight 03/22/17 23:59 Weight 81.647 kg - General Appearance General appearance: Present: well-developed, well-nourished, appears started age , obese EENT: Present: mucous membranes moist Neck: Present: no JVD Respiratory: Present: clear Cardiology: Present: edema, regular rate, regular rhythm Gastrointestinal: Present: normoactive bowel sounds, no tenderness Integumentary: Present: warm and dry Neurologic: Present: alert and oriented x3 Psychiatric: Present: mood/affect appropriate, cooperative - Lab 03/22/17 04:28 03/22/17 04:28 Most recent lab results Calcium 8.7 mg/dL (8.6-10.8) 03/22/17 04:28 Magnesium 2.2 mg/dL (1.6-2.6) 03/21/17 02:58 Consult Discharge Plan - Plan Referrals: Velma Maldonado, [employer]Y INSTRUCTOR [Primary Care Provider] -
[2017-03-22] MEDS: Insulin LISPRO 300 UNITS/3 ML VIAL SQ SCH ×3 (09:36→17:56)
[2017-03-22] MEDS: amLODIPine 5 MG TABLET PO SCH (10:09)
[2017-03-22] MEDS: Furosemide 40 MG TABLET PO SCH ×2 (10:10→17:56)
--- NOTE | 2017-03-22 11:02 | Event Note ---
Date of Encounter: 03/22/17 Time of Encounter: 11:00 - Cardiology Event Note Patient alert and oriented x3 this morning. Discussed with patient and family regarding risks versus benefits of LHC. Patient and family agreeable for LHC. updated on hemoglobin and contact precautions for history of MRSA. Further recommendations pending LHC.
[2017-03-22] MEDS: Budesonide/Formoterol 160/4.5 MDI IH SCH (11:28)
--- NOTE | 2017-03-22 12:07 | Event Note ---
Date of Encounter: 03/22/17 Time of Encounter: 10:30 I examined this patient on 03/22/17 and my medical decision-making was reviewed with the Resident Physician. I agree with the documented findings, disposition and treatment plan as described except to the extent set forth below. Seen and evaluated at bedside with daughter/granddaughter No new complains, still having dull flank pain Abd CT r/o pyelo Awaiting LHC by cardiology PMH of DM, HTN, ESRD on HD, , CHFpEF, Bed-bound at home , admitted for acute metabolic encephalopathy, hyponatremia, Physical exam: AAOX3, no breathlessness , no distress, chest is clear to auscultation, HS S1, S2 only, no m. No chest wall tenderness. Abdomen is soft. LLE with erythema, swelling and differential warmth. RLE in renaldo dressing Labs and Imaging reviewed: Troponin downtrended, new/worsening leukocytosis, Hb is at her baseline although lower than yesterday's value. no DVT per doppler. Urine culture with GPC-Presumed to be strep A: NSTEMI/Acute encephalopathy, Suspected UTI/Acute on chronic CHF/ESRD on HD/ HTN Mental status and renal function is back at baseline Continue Ceftriaxone for UTI, await final sensitivity Per cardio for cath today, continue heparin Chronic diastolic CHF is stable, receiving HD, negative fluid balance. Continue lasix. PTOT eval for deconditioning Chronic medical conditions are stable High risk for delirium Rest of details as in resident physician's documentation
[2017-03-22] MEDS ORDERED: 0.9 % Sodium Chloride 1,000 ML ONE (12:42)
[2017-03-22] MEDS ORDERED: *HR* Heparin 10,000 UNIT/10 ML VIAL ONE (12:43)
[2017-03-22] MEDS ORDERED: Nitroglycerin 1,000 MCG/10 ML VIAL IV ONE (12:43)
[2017-03-22] MEDS ORDERED: Heparin 1,000 UNITS/500 mL NS 500 ML ONE (12:43)
[2017-03-22] MEDS: cefTRIAXone 1,000 MG in Water for inj. (sterile) 10 ML IVP SCH (12:43)
--- NOTE | 2017-03-22 13:03 | Pre-Sedation Evaluation ---
Pre-sedation evaluation - Pre-sedation checklist Date of procedure: 03/22/17 Procedure: [facility] Recent Vitals: Last Vital Signs Temp 98.6 F 03/22/17 12:16 Pulse 60 03/22/17 12:16 Resp 16 03/22/17 12:16 BP 133/76 03/22/17 12:16 Pulse Ox 99 03/22/17 12:16 H&P (including ROS) documented in medical record: Yes Previous reaction to sedatives/anesthetics: No Dietary Status: NPO after Midnight Airway Assessment: Patient can open mouth completely, TMJ function normal, Micrognathia (under-bite, receding chin) absent, Neck with adequate range of motion Dentition: dentures removed Possible difficult airway: No ASA Classification *see protocol: CLASS II-Mild systemic disease Plan of Care: Pt appropriate candidate for procedure/moderate/conscious sedation , Risks/benefits of procedure/sedation discussed w/ patient/family
[2017-03-22] MEDS ORDERED: *HR* FentaNYL (PF) 100 MCG/2 ML VIAL ONE (13:23)
[2017-03-22] MEDS ORDERED: *HR* Midazolam HCl 2 MG/2 ML VIAL ONE (13:23)
--- NOTE | 2017-03-22 14:19 | Invasive Diagnostic Lab Proc ---
Name: Columba Hernandez Date of Study: 03/22/2017 Date: 1940 Ht: 61.0in Medical Record#: [id number] Age: 76 Wt: 180.78lb Gender: Female BSA: 1.81 Order #: [id number] BMI: 34.13 Physicians Procedure Physician: Candice Bah MD, [facility] Referring MD: Referring MD: Staff Name Position Time In Luis Major RN Cupola Operator Insulation 01:12 PM Jess Herrera RN Cupola Operator Insulation 01:12 PM Kathleen Spence RN Monitor 01:12 PM Elizabeth Garcia RT (R) Scrub 01:12 PM Indications Indication Non-Stemi Procedures Performed Procedure L HRT ARTERY/VENTRICLE ANGIO Pre-Procedure Checklist Informed consent is complete signed and on chart. H&P is on chart. ID band is on and ID verified with patient. Patient NPO for procedure The procedure was described for the patient and questions were answered. ECG is on chart. Plan of Care Patient will tolerate the procedure without complications. Adequate level of comfort will be maintained. Hemodynamics will remain stable Patient will recover from procedure without complications. Respiratory function will be maintained. Cardiac rhythm will remain stable. Patient temperature will be maintained. Patient and/or family have verbalized understanding of the procedure. Patient Education Chief Complaint/Reason for Test: Cardiac Cath Developmental Category: Geriatric (65+ years) Developmentally Appropriate for Age: Yes Learning Barriers: None Education Needs: Procedure Education Method: Verbal Information Taught: Cardiac Cath Educational Evaluation: Able to repeat information Intravenous Access Time IV Size Location DC'd Fluid/Drip Rate Units RN 12:47 PM 20g 1 1/" Peripheral-Lock On Arrival Lt Arm 0.9NaCl 25 ml/hr Luis Major RN Allergies codeine levofloxacin Cyclobenzaprine Vital Signs Time BP (mmHg) HR (bpm) O2 Sat. RR (bpm) LOC 12:48 PM 184 / 69 66 96 % 18 01:20 PM / % 5 = Fully awake and oriented or at pre-proc level 01:20 PM / % 4 = Oriented but drowsy 01:35 PM / % 4 = Oriented but drowsy 01:26 PM 126 / 84 59 98 % 1 01:31 PM 103 / 70 59 99 % 21 01:36 PM 101 / 45 65 88 % 25 01:41 PM 117 / 57 113 94 % 18 01:46 PM 130 / 51 105 98 % 19 01:51 PM 126 / 53 120 99 % 22 Procedural Medications Time Medication Dose Units Method Given By 01:19 PM Oxygen 2 L/min nasal cannula Luis Major RN 01:31 PM Versed 1 mg Intravenous Luis Major RN 01:31 PM Fentanyl 25 mcg Intravenous Luis Major RN 01:32 PM Oxygen 4 L/min nasal cannula Luis Major RN 01:38 PM Lidocaine 2% 17 ml Subcutaneous Candice Bah MD, FACC 01:40 PM Oxygen 4 L/min Oxy Mask Luis Major RN ASA Classification: CLASS II- Mild systemic disease (i.e. well-controlled diabetes, hypertension, asthma, cigarette smoking) Ed Score Preprocedure Postprocedure Activity 2- Moves 4 extremities sustained head lift Activity 2- Moves 4 extremities sustained head lift Circulation 2- SBP +/= 20 points of pre-anesthetic level Circulation 2- SBP +/= 20 points of pre-anesthetic level Consciousness 2- Awake and alert oriented x 3 Consciousness 2- Awake and alert oriented x 3 O2 Saturation 2- Able to maintain O2 satruation of 92% on room air O2 Saturation 2- Able to maintain O2 satruation of 92% on room air Respiratory 2- Able to deep breathe and cough well Respiratory 2- Able to deep breathe and cough well Total Score 10 Total Score 10 Contrast Agent: Isovue Diagnostic Contrast: 77 ml Total Contrast: 77 ml Fluoro Dose: 307 mGy Procedure Log Time Note Enter By 01:10 PM CathStat 01:12 PM Pt arrived to lab nurse 2 at 13:12 [email or web address] 01:12 PM Physicashly paged/called 13:12. [email or web address] 01:12 PM Nydia responded and notified patient is ready 13:12 [email or web address] 01:12 PM ASA Class CLASS II- Mild systemic disease (i.e. well-controlled diabetes, hypertension, asthma, cigarette smoking) [email or web address] 01:12 PM Luis Major RN Position: Cupola Operator Insulation Time in: 13:12 [email or web address] 01:12 PM Jess Herrera RN Position: Cupola Operator Insulation Time in: 13:12 [email or web address] 01:12 PM Kathleen Spence RN Position: Monitor Time in: 13:12 [email or web address] 01:12 PM Elizabeth Garcia RT (R) Position: Scrub Time in: 13:12 [email or web address] 01:13 PM Patient charges- Angio tray pack, Navilyst 3mm J, Pulse Oximetry and ACIST tubing and transducer [email or web address] 01:13 PM Case Delayed no, inpatient [email or web address] 01:19 PM Meet and greet completed [email or web address] :19 PM Sign in performed according to hospital policy. [email or web address] :19 PM Procedure start 13: [email or web address] : PM Time: 13:19 Oxygen on at 2 L/min per nasal cannula by Luis Major RN [email or web address] : PM Time: 13:19 Patient comfortable and pain free: Yes [email or web address] :20 PM Time: 13:20LOC: 5 = Fully awake and oriented or at pre-proc level [email or web address] :20 PM Clinical Presentation: Non-STEMI [email or web address] 01:25 PM Vitals capture started with the following parameters, Patient=Adult, Interval=5 min, Initial Jmmpbuxx=279 mmHg, Deflation Rate=5 mmHg, Cuff placed on Right Arm 01:26 PM HR=59 bpm, AQSX=390/84 mmhg, SpO2=98.0 %, Resp=1 B/min, Comment=SB 01:31 PM HR=59 bpm, PCJS=485/70 mmhg, SpO2=99.0 %, Resp=21 B/min, Comment=SB 01:31 PM Time: 13:31 Versed 1 mg Intravenous Given by Luis Major RN [email or web address] 01:32 PM Time: 13:31 Fentanyl 25 mcg Intravenous Given by Luis Major RN [email or web address] :32 PM Time: 13:32 Oxygen on at 4 L/min per nasal cannula by Luis Major RN [email or web address] 01:32 PM Hair removed from procedure site in procedure lab using clippers. Bilateral groin prepped with Chloraprep by Jess Herrera RN, safety strap applied then patient was draped. Skin intact. [email or web address] 01:32 PM bilat groin excoriation [email or web address] 01:33 PM Recorded ECG: HR=65 Condition=Condition 1 01:35 PM Time: 13:20LOC: 4 = Oriented but drowsy [email or web address] 01:35 PM Time: 13:20 Patient comfortable and pain free: Yes [email or web address] 01:36 PM HR=65 bpm, QGTN=543/45 mmhg, SpO2=88.0 %, Resp=25 B/min, Comment=SB 01:38 PM Time out performed according to hospital policy [email or web address] 01:39 PM Time: 13:38 17 ml Lidocaine 2% to right groin Subcutaneous Given by Candice Bah MD, [facility] [email or web address] 01:40 PM Pressure channel 1 zeroed. 01:40 PM Time: 13:40 Oxygen on at 4 L/min per Oxy Mask by Luis Major RN [email or web address] 01:41 PM Access obtained by percutaneous puncture. 5Fr 10cm Terumo [place] sheath placed in right Femoral artery. [id number] [email or web address] 01:41 PM 0.035 145cm Navilyst 3mmJ wire [id number] [email or web address] 01:41 PM 5Fr FL 4 catheter inserted over the wire DN [email or web address] 01:41 PM PQ=887 bpm, DESY=971/57 mmhg, SpO2=94.0 %, Resp=18 B/min, Comment=SB 01:42 PM Recorded Pressure: Ao, CU=660, Condition=Condition 1 (Aorta) Ao 108/52/75 01:43 PM Recorded Pressure: Ao, MO=214, Condition=Condition 1 (Aorta) Ao 81/54/67 01:44 PM Catheter removed [email or web address] 01:44 PM 5Fr FR 4 catheter inserted over the wire DN [email or web address] 01:46 PM ZS=918 bpm, VKPT=534/51 mmhg, SpO2=98.0 %, Resp=19 B/min, Comment=paced 01:47 PM Recorded Pressure: Ao, ET=623, Condition=Condition 1 (Aorta) Ao 38/15/26 01:49 PM Catheter removed [email or web address] 01:49 PM 5Fr Pigtail catheter inserted over the wire DN [email or web address] 01:49 PM Catheter selectively placed in left ventricle [email or web address] 01:50 PM Pressure channel 1 zeroed. 01:50 PM Recorded Pressure: LV, NI=986, Condition=Condition 1 (Left Ventricle) LV 85/25/52 01:51 PM Time: 13:35 Patient comfortable and pain free: Yes [email or web address] 01:51 PM KL=182 bpm, VWBC=164/53 mmhg, SpO2=99.0 %, Resp=22 B/min, Comment=paced 01:51 PM Recorded Pressure: LV, Ao, JF=880, Condition=Condition 1 (Left Ventricle) LV 89/34/58, (Aorta) Ao 88/55/71 01:51 PM Time: 13:35LOC: 4 = Oriented but drowsy [email or web address] 01:52 PM Bolus angiogram of left Ventricle complete: 8 ml/sec for a total of 24 mls [email or web address] 01:52 PM Catheter removed [email or web address] 01:52 PM Wire removed [email or web address] 01:53 PM Bolus angiogram of left Femoral complete: 4 ml/sec for a total of 7 mls [email or web address] 01:54 PM Procedure completed at 13:54 [email or web address] 01:55 PM Sign out completed: Radiation Dose 306.88 mGy Fluoro Time: 4.6 Isovue 370 - 200ml contrast 77 ml given by Candice Bah MD, [facility]. Complications: NoneCardiac Rehab Consult needed: NoConfirmed administered medications: Yes [email or web address] 01:56 PM Arterial sheath pulled, Mynx closure device used and was Successful [id number] S/N. [email or web address] 01:56 PM Post ECG Paced [email or web address] 01:56 PM Post Blood Pressure 124/43 [email or web address] 01:56 PM 13:56 Post Pulses Bilateral DP 2+ [email or web address] 01:56 PM Information taught Cardiac Cath and Mynx [email or web address] 01:56 PM Education needs Procedure, Plan of Care, and Responsibilities of Patient in Care [email or web address] 01:57 PM Learning barriers :None [email or web address] 01:57 PM Education Methods Verbal [email or web address] 01:57 PM Education evaluation Able to repeat information [email or web address] 01:57 PM Site status No bleeding/hematoma - Rt Groin as reported by Elizabeth Garcia RT (R) at 13:57 [email or web address] 01:57 PM Opsite applied [email or web address] 01:59 PM Report given to Elizabeth RN Pt taken to 2A Room #38. 13:59 [email or web address] 01:59 PM Delay to floor No [email or web address] 02:00 PM Family placed in consult room. [email or web address] 02:03 PM Patient out of room: 14:03 [email or web address] 02:03 PM Lesion found in LMCA. Pre Stenosis: 20 Pre MIKE Flow: [email or web address] 02:03 PM Lesion found in Proximal LAD. Pre Stenosis: 25 Pre MIKE Flow: [email or web address] 02:04 PM Lesion found in Mid LAD. Pre Stenosis: 30 Pre MIKE Flow: [email or web address] 02:04 PM Lesion found in Proximal Circumflex. Pre Stenosis: 40 Pre MIKE Flow: [email or web address] 02:04 PM Lesion found in Mid Circumflex. Pre Stenosis: 40 Pre MIKE Flow: [email or web address] 02:04 PM Lesion found in Distal Circumflex. Pre Stenosis: 25 Pre MIKE Flow: [email or web address] 02:04 PM Lesion found in Proximal RCA. Pre Stenosis: 40 Pre MIKE Flow: [email or web address] 02:04 PM Lesion found in Mid RCA. Pre Stenosis: 25 Pre MIKE Flow: [email or web address] 02:04 PM Left Main Coronary Artery with 20% stenosis [email or web address] 02:04 PM Proximal Left Anterior Descending Coronary Artery with 25% stenosis. If graft is supplying this territory, 0 % stenosis. [email or web address] 02:04 PM Mid/Distal Left Anterior Descending Coronary Artery and diagonal branches with 30% stenosis. If graft is supplying this area, 0 % stenosis [email or web address] 02:04 PM Circumflex, Obtuse Marginal, Left Posterior Descending, and Left Posterolateral Coronary Arteries with 40 % stenosis. If graft is supplying this area, 0 % stenosis [email or web address] 02:04 PM Right Coronary, Right Posterior Descending Arteries with Right Posterolateral and Acute Marginal branches with 40 % stenosis. If graft is supplying this area, 0 % stenosis [email or web address] 02:13 PM Time: 13:51 Patient comfortable and pain free: [email or web address] Complications Complication None Hemodynamics Pressures Site Systolic/A Wave Diastolic/V Wave Mean AO 108 52 75 AO 81 54 67 AO 38 15 26 LV 85 25 52 LV 89 34 58 AO 88 55 71 Post Procedure Information Blood Pressure: 124/43 mmHg Rhythm: Paced Post procedural instructions were given Closure Device Time Device Success/Fail 03/22/2017 2:05:00 PM MynxGrip Successful Site Checks Time Location Status Staff Sheath In? Note 01:57 PM Rt Groin No bleeding/hematoma Elizabeth Garcia RT (R) Pulses Time Site Pre-Procedure Post-Procedure Note 03/22/2017 12:48:00 PM Bilateral DP & PT 2+ 03/22/2017 12:48:00 PM Bilateral radial 2+ 1:56:00 PM Bilateral DP 2+ Updated by Kathleen Spence RN on 03/22/2017 2:14:08 PM electronically signed on 03/22/2017 2:14:47 PM with status of Final
--- NOTE | 2017-03-22 14:45 | Event Note ---
Date of Encounter: 03/22/17 Time of Encounter: 14:44 - Cardiology Event Note LHC with non-obstructive CAD. Cardiology will sign off. Recommend patient follow with her primary core measures abstractor.
--- NOTE | 2017-03-22 18:04 | Electrocardiograph Report ---
[employer] Test Date: 2017-03-20 Pat Name: Columba Hernandez Department: 104 Room: 2A38 Gender: Female [employer] Supervisor: QASIM : 1940 Requested By: Order Number: [id number] Reading MD: Edwardo Munoz DO Measurements Intervals [place] Rate: 60 P: -47 [place]: 213 QRS: 113 QRSD: 114 T: 66 QT: 451 QTc: 451 Interpretive Statements ELECTRONIC ATRIAL PACEMAKER POSSIBLE RIGHT VENTRICULAR HYPERTROPHY SEPTAL MYOCARDIAL INFARCTION, OF INDETERMINATE AGE WARNING: DATA QUALITY MAY AFFECT INTERPRETATION Electronically Signed On 03-22-2017 18:02:45 EDT by Edwardo Munoz DO
--- NOTE | 2017-03-22 18:22 | Internal Med Progress Note ---
Date of Encounter: 03/22/17 Time of Encounter: 18:17 - Assessment and plan (1) NSTEMI (non-ST elevated myocardial infarction) Current Visit: Yes Status: Acute Assessment and plan: No coronary artery occlusions elucidated on cath cardiology recommends f/u on OP basis heparin infusion discontinued (2) Altered mental state Current Visit: Yes Status: Acute Assessment and plan: Mentation at baseline per ; patient is readily able to demonstrate AOx3 likely multifactorial related to hyponatremia, volume overload, chf/ESR-HD, & UTI PT/OT pending Qualifiers: Altered mental status type: unspecified Qualified Code(s): R41.82 - Altered mental status, unspecified (3) Hyponatremia Current Visit: Yes Status: Acute Assessment and plan: Likely hypervolemic 2/2 other chronic processes, i.e., ESRD/CHF Initially 126 in ED; now 133 which is approximate baseline Patient ESRD on HD 3x/week; received HD this AM Monitor bmp in AM (4) End-stage renal disease on hemodialysis Current Visit: Yes Status: Chronic Assessment and plan: HD completed this AM Cont monitoring of weight & I/O Monitor BMP qAM cont usual MWF HD (5) Acute congestive heart failure Current Visit: No Status: Acute Assessment and plan: symptomatically improving continue to monitor I/O, weight cont O2 via NC Qualifiers: Congestive heart failure type: diastolic Qualified Code(s): I50.31 - Acute diastolic (congestive) heart failure (6) UTI (urinary tract infection) Current Visit: Yes Status: Acute Assessment and plan: Continue IV Rocephin demonstrates gram-positive cocci; no sensitivity report in available reassess antibiotic choice pending sensitivity report VSS at this time Qualifiers: Urinary tract infection type: acute cystitis Hematuria presence: with hematuria Qualified Code(s): N30.01 - Acute cystitis with hematuria (7) CAD (coronary artery disease) Current Visit: No Status: Chronic Assessment and plan: Continues to be without anginal equivalents including chest pain, diaphoresis, vomiting, or worsening shortness of breath Completed this a.m. as described above troponin levels down trending continue current meds including statin and aspirin will have patient follow-up on an outpatient basis with cardiology upon discharge Qualifiers: Coronary Disease-Associated Artery/Lesion type: [place] artery [place] vs. transplanted heart: [place] heart Associated angina: without angina Qualified Code(s): I25.10 - Atherosclerotic heart disease of [place] coronary artery without angina pectoris (8) Diabetes mellitus type 2, insulin dependent Current Visit: No Status: Chronic Assessment and plan: Continue insulin regimen continue blood sugar checks qACHS SSI as needed cont diabetic diet (9) Hypertension Current Visit: Yes Status: Acute Assessment and plan: Blood pressure stable with occasional mild elevations of systolic BP continue current medications including amlodipine and Lasix Qualifiers: Hypertension type: essential hypertension Qualified Code(s): I10 - Essential (primary) hypertension (10) Folate deficiency Current Visit: Yes Status: Acute Assessment and plan: Patient mildly anemic (macrocytic) with low folate B12 checked and is in fact high consider folate supplementation continue to monitor CBC (11) DVT prophylaxis Current Visit: Yes Status: Acute Assessment and plan: Continue sub Q heparin - Time Spent With Patient less than 15 minutes - Subjective Interval history: Patient has completed dialysis as well as planned heart this a.m. Patient continues to be mildly hypertensive; otherwise vital signs stable. Cardiac cath fails to reveal any occlusive processes within the coronary vasculature. Patient subjectively much better; does not feel as fatigued or short of breath and currently denies any other symptoms including pain. Mentation improved per - Constitutional Vitals: Temp Pulse Resp BP Pulse Ox 97.9 F 60 14 148/61 99 03/22/17 14:20 03/22/17 15:35 03/22/17 15:35 03/22/17 15:35 03/22/17 15:35 General appearance: Present: A&O X 3, pleasant, no acute distress, answers questions appropriately - Head Head exam: Present: atraumatic, normocephalic - Eye Eye exam: Present: PERRL, conjuntiva pink, sclera anicteric. Absent: scleral icterus - Neck Neck exam general surgery: Present: supple, trachea midline. Absent: lymphadenopathy - Respiratory Respiratory exam: Present: CTAB. Absent: accessory muscle use, rales, respiratory distress, rhonchi, wheezes Additional comments: On nasal cannula; 3L saturating 99% - Cardiovascular Cardiovascular exam: Present: RRR, +S1, +S2. Absent: diastolic murmur, gallop, JVD, rubs, +S3, +S4, systolic murmur, tachycardia - GI/Abdominal GI/Abdominal exam: Present: soft. Absent: distended, tenderness - Extremities Exam Extremities exam: Present: pedal edema (Mild bilaterally symmetrical without pitting), warm, radial pulses palpable and symmetrical. Absent: calf tenderness , cyanotic - Neurological Exam Neurological exam: Present: alert ( much more alert today than on previous encounter; readily is able to state identity, time, and her present location. Mentation at baseline .), oriented X3, no focal deficits. Absent: facial droop, speech deficit - Skin Skin exam: Present: dry, intact, normal color. Absent: cyanosis, diaphoretic, mottled, pallor Internal Medicine: Result - Labs CBC & Chem 7: 03/22/17 04:28 03/22/17 04:28 Labs: Short CBC 03/22/17 Range/Units 04:28 WBC 13.1 H (4.3-11.1) K/mcL Hgb 8.8 L (11.5-15.4) g/dL Hct 29.2 L (35.3-44.9) % Plt Count 192 (140-400) K/mcL Neutrophils # 9.0 H (1.6-8.9) K/mcL BMP 03/22/17 04:28 Sodium 133 L Potassium 3.5 Chloride 97 L Carbon Dioxide 28 BUN 22 H Creatinine 3.92 H Glucose 188 H Calcium 8.7 Cardiac Enzymes 03/22/17 Range/Units 04:28 Troponin I 1.03 H* (0-0.03) ng/mL Liver Function 03/22/17 Range/Units 04:28 Total Bilirubin 0.4 (0.2-1.2) mg/dL AST 15 (5-34) Units/L ALT 10 (0-55) Units/L Alkaline Phosphatase 169 H (38-126) Units/L Albumin 2.7 L (3.5-5.0) g/dL Laboratory Last Values WBC 13.1 K/mcL (4.3-11.1) H 03/22/17 04:28 RBC 2.66 M/mcL (3.82-4.97) L 03/22/17 04:28 Hgb 8.8 g/dL (11.5-15.4) L 03/22/17 04:28 Hct 29.2 % (35.3-44.9) L 03/22/17 04:28 MCV 109.8 fL (83.0-100.0) H 03/22/17 04:28 MCH 33.1 pg (28.0-33.3) 03/22/17 04:28 MCHC 30.1 g/dL (31.6-35.5) L 03/22/17 04:28 RDW 13.0 % (11.5-14.5) 03/22/17 04:28 Plt Count 192 K/mcL (140-400) 03/22/17 04:28 MPV 10.4 fL (9.4-12.4) 03/22/17 04:28 Immature Gran % 1.3 % (0-4) 03/22/17 04:28 Seg Neutrophils % 68.7 % 03/22/17 04:28 Lymphocytes % 14.7 % 03/22/17 04:28 Monocytes % 12.9 % 03/22/17 04:28 Eosinophils % 1.9 % 03/22/17 04:28 Basophils % 0.5 % 03/22/17 04:28 Neutrophils # 9.0 K/mcL (1.6-8.9) H 03/22/17 04:28 Lymphocytes # 1.9 K/mcL (0.6-4.6) 03/22/17 04:28 Monocytes # 1.7 K/mcL (0.0-1.3) H 03/22/17 04:28 Eosinophils # 0.3 K/mcL (0.0-0.6) 03/22/17 04:28 Basophils # 0.1 K/mcL (0.0-0.2) 03/22/17 04:28 Nucleated RBCs/100 WBC 0.4 /100 WBC (0) H 03/22/17 04:28 PT 13.2 Seconds (9.4-12.1) H 03/21/17 15:20 INR 1.2 03/21/17 15:20 APTT 129.4 Seconds (26.0-36.0) H* 03/22/17 04:28 Heparin Anti-Xa, Unfract 0.48 IU/mL (0.30-0.70) 03/22/17 04:28 Sodium 133 mEq/L (136-145) L 03/22/17 04:28 Potassium 3.5 mEq/L (3.5-4.5) 03/22/17 04:28 Chloride 97 mEq/L (98-109) L 03/22/17 04:28 Carbon Dioxide 28 mEq/L (19-29) 03/22/17 04:28 BUN 22 mg/dL (7-20) H 03/22/17 04:28 Creatinine 3.92 mg/dL (0.57-1.11) H 03/22/17 04:28 Est GFR ( Amer) 14 (> 60) L 03/22/17 04:28 Est GFR (Non-Af Amer) 11 (> 60) L 03/22/17 04:28 BUN/Creatinine Ratio 6 (6-26) 03/22/17 04:28 Glucose 188 mg/dL (70-99) H 03/22/17 04:28 POC Glucose 194 (58-89) H 03/21/17 20:48 Calculated Osmolality 284 (280-300) 03/22/17 04:28 Lactic Acid 0.5 mmol/L (0.5-2.2) 03/20/17 14:59 Calcium 8.7 mg/dL (8.6-10.8) 03/22/17 04:28 Magnesium 2.2 mg/dL (1.6-2.6) 03/21/17 02:58 Total Bilirubin 0.4 mg/dL (0.2-1.2) 03/22/17 04:28 Direct Bilirubin 0.3 mg/dL (0.0-0.5) 03/20/17 10:01 Indirect Bilirubin 0.2 mg/dL (0.0-1.2) 03/20/17 10:01 AST 15 Units/L (5-34) 03/22/17 04:28 ALT 10 Units/L (0-55) 03/22/17 04:28 Alkaline Phosphatase 169 Units/L (38-126) H 03/22/17 04:28 Troponin I 1.03 ng/mL (0-0.03) H* 03/22/17 04:28 B-Natriuretic Peptide 2105 pg/mL (0-100) H 03/20/17 10:01 Serum Total Protein 6.2 g/dL (6.0-8.3) 03/22/17 04:28 Albumin 2.7 g/dL (3.5-5.0) L 03/22/17 04:28 Globulin 3.5 g/dL (2.4-3.5) 03/22/17 04:28 Albumin/Globulin Ratio 0.8 (1.1-2.2) L 03/22/17 04:28 Vitamin B12 894 pg/mL (213-816) H 03/22/17 04:28 Folate 6.0 ng/mL (7.0-31.4) L 03/22/17 04:28 Beta-Hydroxybutyric Acd 0.44 mmol/L (0.02-0.27) H 03/20/17 14:59 Ur Specimen Adequacy See below A 03/20/17 10:44 Urine Color Dark Yellow (Yellow) 03/20/17 10:44 Urine Clarity Turbid (Clear) A 03/20/17 10:44 Urine pH 5.5 pH Units (5.0-8.0) 03/20/17 10:44 Ur Specific [place] 1.024 (1.010-1.025) 03/20/17 10:44 Urine Protein >=1000 mg/dL (Neg-Trace) H 03/20/17 10:44 Urine Glucose (UA) 250 mg/dL (Normal) H 03/20/17 10:44 Urine Ketones Negative mg/dL (Negative) 03/20/17 10:44 Urine Blood Moderate (Negative) H 03/20/17 10:44 Urine Nitrite Negative (Negative) 03/20/17 10:44 Urine Bilirubin Negative (Negative) 03/20/17 10:44 Urine Urobilinogen Normal mg/dL (Normal) 03/20/17 10:44 Ur Leukocyte Esterase Large (Negative) H 03/20/17 10:44 Urine Microscopic RBC 5-15 per hpf (0-3) H 03/20/17 10:44 Urine Microscopic WBC TNTC per hpf (0-3) H 03/20/17 10:44 Ur Squamous Epith Cells Many per lpf (None-Few) H 03/20/17 10:44 Ur Transition Epith Cell Present per hpf (None-Few) 03/20/17 10:44 Ur Renal Epithelial Cell Present per hpf (None-Few) 03/20/17 10:44 Urine Bacteria Many per hpf (None-Few) H 03/20/17 10:44 Epithelial Casts Present per lpf (None Seen) H 03/20/17 10:44 Hyaline Casts None Seen per lpf (None-Few) 03/20/17 10:44 Granular Casts Present per lpf (None Seen) H 03/20/17 10:44 Urine Yeast Test Not Performed 03/20/17 10:44 Ur Culture Indicated? YES (NO) A 03/20/17 10:44 Hep Bs Antigen Nonreactive (Nonreactive) 03/20/17 14:59 Hep Bs Antibody 1.24 mIU/mL 03/20/17 14:59 - ABG Interpretation ABG results: PT/INR, D-dimer PT 13.2 Seconds (9.4-12.1) H 03/21/17 15:20 Consult Discharge Plan - Plan Referrals: Velma Maldonado CNP [Primary Care Provider] - 04/01/17 1:00 pm (Please follow up as schedule...)
[2017-03-23] MEDS: Budesonide/Formoterol 160/4.5 MDI IH SCH ×3 (00:10→19:48)
[2017-03-23] MEDS: Insulin LISPRO 300 UNITS/3 ML VIAL SQ SCH ×5 (08:05→21:22)
[2017-03-23] MEDS: amLODIPine 5 MG TABLET PO SCH (08:09)
[2017-03-23] MEDS: Sennosides/Docusate Sodium TABLET PO SCH ×2 (08:09→21:22)
[2017-03-23] MEDS: Folic Acid 1 MG TABLET PO SCH (08:09)
[2017-03-23] MEDS: Aspirin Enteric Coated 81 MG Tablet PO SCH (08:10)
[2017-03-23] MEDS: Gabapentin 100 MG CAPSULE PO SCH ×3 (08:10→21:21)
[2017-03-23] MEDS: Furosemide 40 MG TABLET PO SCH ×2 (08:10→17:07)
[2017-03-23] MEDS: Thiamine (B-1) 100 MG TABLET PO SCH (08:10)
--- NOTE | 2017-03-23 08:19 | Nephrology Progress Note ---
Date of Encounter: 03/23/17 Time of Encounter: 07:55 - Assessment and Plan (1) End-stage renal disease on hemodialysis Current Visit: Yes Status: Chronic ESRD, No HD today, keeping MWF schedule. Head CT no acute process, may be related to UTI. Mentation at known patient baseline. CT abd/pelvis for right flank pain -prominent intrahepatic biliary ducts, bili 0.3, AST 15, ALT 10. Trending elevated trop. S/P LHC yesterday, non obstructing CAD. Subjective Interval history: Sitting up in bed, eating breakfast. Objective - Vital Signs Vital signs: Vital Signs Temp Pulse Resp BP Pulse Ox 03/23/17 08:02 17 99 03/23/17 06:48 98.9 F 60 17 114/46 98 03/23/17 04:34 98.7 F 68 22 121/63 97 03/22/17 23:56 98.4 F 74 24 119/48 97 03/22/17 19:50 98.9 F 60 22 103/40 94 03/22/17 15:35 60 14 148/61 99 03/22/17 15:02 60 14 146/62 100 03/22/17 14:50 60 14 161/65 99 03/22/17 14:35 59 14 153/63 98 03/22/17 14:20 97.9 F 75 14 112/64 98 03/22/17 12:16 98.6 F 60 16 133/76 99 03/22/17 11:28 14 99 03/22/17 09:47 98.4 F 18 147/62 03/22/17 09:40 144/59 03/22/17 09:10 155/91 03/22/17 08:40 145/52 Intake and Output 03/22/17 03/23/17 03/23/17 23:59 07:59 15:59 Other: Weight 81.692 kg Blood Glucose* 144 119 - General Appearance General appearance: Present: well-developed, well-nourished, appears started age , obese EENT: Present: mucous membranes moist Neck: Present: no JVD Respiratory: Present: clear Cardiology: Present: edema, regular rate, regular rhythm Additional Comments: mild Gastrointestinal: Present: normoactive bowel sounds, no tenderness Integumentary: Present: warm and dry Neurologic: Present: alert and oriented x3 Psychiatric: Present: mood/affect appropriate, cooperative - Lab 03/22/17 04:28 03/22/17 04:28 Most recent lab results Calcium 8.7 mg/dL (8.6-10.8) 03/22/17 04:28 Magnesium 2.2 mg/dL (1.6-2.6) 03/21/17 02:58 Consult Discharge Plan - Plan Referrals: Velma Maldonado IT FIELD TECHNICIAN [Primary Care Provider] - 04/01/17 1:00 pm (Please follow up as schedule...)
[2017-03-23 09:54] LABS: Basophils # 0.1 K/mcL (0.0-0.2); Basophils % 0.4 %; Eosinophils # 0.1 K/mcL (0.0-0.6); Eosinophils % 0.9 %; Hematocrit 30.3 % (35.3-44.9); Immature Granulocytes % 1.1 % (0-4); Lymphocytes # 1.4 K/mcL (0.6-4.6); Lymphocytes % 10.6 %; Mean Corpuscular HGB Conc 29.7 g/dL (31.6-35.5); Mean Corpuscular Hemoglobin 33.2 pg (28.0-33.3); Mean Corpuscular Volume 111.8 fL (83.0-100.0); Mean Platelet Volume 9.9 fL (9.4-12.4); Monocytes # 1.4 K/mcL (0.0-1.3); Monocytes % 11.1 %; Neutrophils # 9.7 K/mcL (1.6-8.9); Nucleated Red Blood Cells 0.5 /100 WBC (0); Platelet Count 196 K/mcL (140-400); Red Blood Count 2.71 M/mcL (3.82-4.97); Red Cell Distribution Width 13.3 % (11.5-14.5); Segmented Neutrophils % 75.9 %
[2017-03-23 10:05] LABS: Calcium 8.8 mg/dL (8.6-10.8); Potassium 4.1 mEq/L (3.5-4.5)
[2017-03-23 10:09] LABS: Macrocytosis Present (Not Present); Platelet Estimate Normal (Normal)
[2017-03-23 10:10] LABS: Basophilic Stippling 1+ (Not Present)
[2017-03-23] MEDS: cefTRIAXone 1,000 MG in Water for inj. (sterile) 10 ML IVP SCH (12:07)
--- NOTE | 2017-03-23 18:37 | Internal Med Progress Note ---
Date of Encounter: 03/23/17 Time of Encounter: 11:00 - Assessment and plan (1) UTI (urinary tract infection) Current Visit: No Status: Acute Assessment and plan: -Urine cultures positive for Enteroccus faecium -Continue IV ceftriaxone Qualifiers: Urinary tract infection type: acute cystitis Hematuria presence: without hematuria Qualified Code(s): N30.00 - Acute cystitis without hematuria (2) Metabolic encephalopathy Current Visit: No Status: Acute Assessment and plan: -Resolved; suspect secondary to above (3) CHF (congestive heart failure) Current Visit: No Status: Chronic Assessment and plan: -Stable; continue home medications Qualifiers: Congestive heart failure type: diastolic Congestive heart failure chronicity: unspecified congestive heart failure chronicity Qualified Code(s) : I50.30 - Unspecified diastolic (congestive) heart failure (4) Essential (primary) hypertension Current Visit: No Status: Chronic Assessment and plan: -Controlled; continue home medications (5) End-stage renal disease on hemodialysis Current Visit: Yes Status: Chronic Assessment and plan: -Continue hemodialysis per nephrology (6) Elevated troponin Current Visit: No Status: Acute Assessment and plan: -Left heart catheterization showed nonobstructive coronary artery disease; continue medical management (7) DVT prophylaxis Current Visit: No Status: Acute Assessment and plan: -Subcutaneous heparin - Subjective Interval history: No acute events overnight - Constitutional Vitals: Temp Pulse Resp BP Pulse Ox 98.6 F 88 16 109/58 95 03/23/17 14:32 03/23/17 14:32 03/23/17 14:32 03/23/17 14:32 03/23/17 14:32 General appearance: Present: A&O X 3, pleasant, no acute distress, answers questions appropriately - Respiratory Respiratory exam: Present: CTAB. Absent: accessory muscle use, rales, rhonchi, wheezes - Cardiovascular Cardiovascular exam: Present: RRR, +S1, +S2. Absent: diastolic murmur, gallop, rubs, systolic murmur Internal Medicine: Result - Labs CBC & Chem 7: 03/23/17 09:46 03/23/17 09:46 Labs: Short CBC 03/23/17 Range/Units 09:46 WBC 12.8 H (4.3-11.1) K/mcL Hgb 9.0 L (11.5-15.4) g/dL Hct 30.3 L (35.3-44.9) % Plt Count 196 (140-400) K/mcL Neutrophils # 9.7 H (1.6-8.9) K/mcL BMP 03/23/17 09:46 Sodium 132 L Potassium 4.1 Chloride 97 L Carbon Dioxide 28 BUN 15 Creatinine 3.15 H Glucose 185 H Calcium 8.8 - ABG Interpretation ABG results: PT/INR, D-dimer PT 13.2 Seconds (9.4-12.1) H 03/21/17 15:20 Consult Discharge Plan - Plan Referrals: Velma Maldonado CRANKSHAFT STRAIGHTENER [Primary Care Provider] - 04/01/17 1:00 pm (Please follow up as schedule...)
[2017-03-24] MEDS: Budesonide/Formoterol 160/4.5 MDI IH SCH ×2 (07:51→22:40)
--- NOTE | 2017-03-24 08:16 | Nephrology Progress Note ---
Date of Encounter: 03/24/17 Time of Encounter: 07:55 - Assessment and Plan (1) End-stage renal disease on hemodialysis Current Visit: Yes Status: Chronic ESRD, No HD today, keeping MWF schedule. Head CT no acute process, may be related to UTI. Mentation at known patient baseline. S/P LHC, non obstructing CAD. Concern for to care for patient in home environment and transporting to and from outpatient dialysis. Subjective Interval history: Sitting up in bed. States PT has tried to get out of bed, but only able to sit on edge of bed with assist. Discussed at length may need to go to nursing facility for rehab following hospital stay due to is only caregiver. currently transports to and from outpatient dialysis facility and will not be able to if cannot get in/out of vehicle. Also, there is concern if will be able to take care of her physical care due to her increasing debility without some form of assistance or outside help. Objective - Vital Signs Vital signs: Vital Signs Temp Pulse Resp BP Pulse Ox 03/24/17 07:52 18 96 03/24/17 03:10 98.3 F 76 18 108/50 92 03/24/17 00:34 98.7 F 75 16 103/45 100 03/23/17 19:48 18 97 03/23/17 19:14 98.9 F 60 18 107/58 97 03/23/17 14:32 98.6 F 88 16 109/58 95 03/23/17 10:36 99.0 F 60 17 128/50 98 Intake and Output 03/23/17 03/24/17 03/24/17 23:59 07:59 15:59 Intake Total 120 / 120 100 / 100 Balance 120 / 120 100 / 100 Intake: Oral 120 / 120 100 / 100 Other: Meal HS [employer] GO[employer] Weight 79.016 kg Blood Glucose* 146 Patient Weight 03/24/17 23:59 Weight 79.016 kg - General Appearance General appearance: Present: well-developed, well-nourished, appears started age , obese EENT: Present: mucous membranes moist Neck: Present: no JVD Respiratory: Present: clear Cardiology: Present: edema, regular rate, regular rhythm Gastrointestinal: Present: normoactive bowel sounds, no tenderness Integumentary: Present: warm and dry Neurologic: Present: alert and oriented x3 Psychiatric: Present: mood/affect appropriate, cooperative - Lab 03/23/17 09:46 03/23/17 09:46 Most recent lab results Calcium 8.8 mg/dL (8.6-10.8) 03/23/17 09:46 Magnesium 2.2 mg/dL (1.6-2.6) 03/21/17 02:58 Consult Discharge Plan - Plan Referrals: Velma Maldonado COMBINATION PRESSER [Primary Care Provider] - 04/01/17 1:00 pm (Please follow up as schedule...)
[2017-03-24] MEDS: Gabapentin 100 MG CAPSULE PO SCH ×3 (09:36→19:44)
[2017-03-24] MEDS: Thiamine (B-1) 100 MG TABLET PO SCH (09:36)
[2017-03-24] MEDS: Sennosides/Docusate Sodium TABLET PO SCH ×2 (09:36→19:44)
[2017-03-24] MEDS: amLODIPine 5 MG TABLET PO SCH (09:37)
[2017-03-24] MEDS: Aspirin Enteric Coated 81 MG Tablet PO SCH (09:37)
[2017-03-24] MEDS: Folic Acid 1 MG TABLET PO SCH (09:37)
[2017-03-24] MEDS: Furosemide 40 MG TABLET PO SCH ×2 (09:37→17:57)
[2017-03-24] MEDS: Insulin LISPRO 300 UNITS/3 ML VIAL SQ SCH ×4 (09:38→22:31)
[2017-03-24 10:05] LABS: Basophils # 0.1 K/mcL (0.0-0.2); Basophils % 0.5 %; Eosinophils # 0.2 K/mcL (0.0-0.6); Eosinophils % 1.9 %; Hematocrit 30.8 % (35.3-44.9); Hemoglobin 9.2 g/dL (11.5-15.4); Immature Granulocytes % 1.1 % (0-4); Lymphocytes # 1.4 K/mcL (0.6-4.6); Lymphocytes % 11.4 %; Mean Corpuscular HGB Conc 29.9 g/dL (31.6-35.5); Mean Corpuscular Hemoglobin 33.5 pg (28.0-33.3); Mean Platelet Volume 10.1 fL (9.4-12.4); Monocytes # 1.3 K/mcL (0.0-1.3); Monocytes % 10.5 %; Neutrophils # 9.3 K/mcL (1.6-8.9); Nucleated Red Blood Cells 0.5 /100 WBC (0); Platelet Count 190 K/mcL (140-400); Red Blood Count 2.75 M/mcL (3.82-4.97); Red Cell Distribution Width 13.3 % (11.5-14.5); Segmented Neutrophils % 74.6 %
[2017-03-24 10:18] LABS: Calcium 8.9 mg/dL (8.6-10.8); Potassium 4.2 mEq/L (3.5-4.5)
[2017-03-24 10:41] LABS: Platelet Estimate Normal (Normal)
[2017-03-24 10:42] LABS: Macrocytosis Present (Not Present)
[2017-03-24 10:43] LABS: Basophilic Stippling 1+ (Not Present); Polychromasia 1+ (Not Present)
--- NOTE | 2017-03-24 15:16 | Internal Med Progress Note ---
Date of Encounter: 03/24/17 Time of Encounter: 11:00 - Assessment and plan (1) UTI (urinary tract infection) Current Visit: No Status: Acute Assessment and plan: -Urine cultures positive for VRE Enteroccus faecium -Will discontinue IV ceftriaxone and start patient on linezolid Qualifiers: Urinary tract infection type: acute cystitis Hematuria presence: without hematuria Qualified Code(s): N30.00 - Acute cystitis without hematuria (2) Metabolic encephalopathy Current Visit: No Status: Resolved Assessment and plan: -Resolved; suspect secondary to above (3) CHF (congestive heart failure) Current Visit: No Status: Chronic Assessment and plan: -Stable; continue home medications Qualifiers: Congestive heart failure type: diastolic Congestive heart failure chronicity: unspecified congestive heart failure chronicity Qualified Code(s) : I50.30 - Unspecified diastolic (congestive) heart failure (4) Essential (primary) hypertension Current Visit: No Status: Chronic Assessment and plan: -Controlled; continue home medications (5) End-stage renal disease on hemodialysis Current Visit: Yes Status: Chronic Assessment and plan: -Continue hemodialysis per nephrology (6) Elevated troponin Current Visit: No Status: Acute Assessment and plan: -Left heart catheterization showed nonobstructive coronary artery disease; continue medical management (7) DVT prophylaxis Current Visit: No Status: Acute Assessment and plan: -Subcutaneous heparin - Subjective Interval history: Patient with no issues or complaints this morning and no acute events overnight. - Constitutional Vitals: Temp Pulse Resp BP Pulse Ox 98.2 F 60 17 134/50 97 03/24/17 12:06 03/24/17 12:06 03/24/17 12:06 03/24/17 12:06 03/24/17 12:06 General appearance: Present: A&O X 3, pleasant, no acute distress, answers questions appropriately - Respiratory Respiratory exam: Present: CTAB. Absent: accessory muscle use, rales, rhonchi, wheezes - Cardiovascular Cardiovascular exam: Present: RRR, +S1, +S2. Absent: diastolic murmur, gallop, rubs, systolic murmur Internal Medicine: Result - Labs CBC & Chem 7: 03/24/17 09:45 03/24/17 09:45 Labs: Short CBC 03/24/17 Range/Units 09:45 WBC 12.4 H (4.3-11.1) K/mcL Hgb 9.2 L (11.5-15.4) g/dL Hct 30.8 L (35.3-44.9) % Plt Count 190 (140-400) K/mcL Neutrophils # 9.3 H (1.6-8.9) K/mcL BMP 03/24/17 09:45 Sodium 133 L Potassium 4.2 Chloride 98 Carbon Dioxide 24 BUN 23 H Creatinine 4.36 H Glucose 183 H Calcium 8.9 - ABG Interpretation ABG results: PT/INR, D-dimer PT 13.2 Seconds (9.4-12.1) H 03/21/17 15:20 Consult Discharge Plan - Plan Referrals: Velma Maldonado CNP [Primary Care Provider] - 04/01/17 1:00 pm (Please follow up as schedule...)
[2017-03-25] MEDS: Budesonide/Formoterol 160/4.5 MDI IH SCH ×2 (08:03→20:18)
[2017-03-25] MEDS: Insulin LISPRO 300 UNITS/3 ML VIAL SQ SCH ×4 (09:23→22:09)
[2017-03-25] MEDS: amLODIPine 5 MG TABLET PO SCH (09:24)
[2017-03-25] MEDS: Gabapentin 100 MG CAPSULE PO SCH ×3 (09:24→22:09)
--- NOTE | 2017-03-25 09:24 | Nephrology Progress Note ---
Date of Encounter: 03/25/17 Time of Encounter: 09:15 - Assessment and Plan (1) End-stage renal disease on hemodialysis Current Visit: Yes Status: Chronic ESRD, HD today, keeping MWF schedule, orders given. Head CT no acute process, may be related to UTI. Mentation at known patient baseline. S/P LHC, non obstructing CAD. Concern for to care for patient in home environment and transporting to and from outpatient dialysis. Subjective Interval history: Sitting up in bed. States PT has tried to get out of bed, but only able to sit on edge of bed with assist. Discussed at length may need to go to nursing facility for rehab following hospital stay due to is only caregiver. currently transports to and from outpatient dialysis facility and will not be able to if cannot get in/out of vehicle. Also, there is concern if will be able to take care of her physical care due to her increasing debility without some form of assistance or outside help. 03/25-Daughter at bedside. States her, father/ and patient spoke yesterday about needing nursing facility upon discharge in light of above concerns. Patient agreeable to stay at [facility]. Objective - Vital Signs Vital signs: Vital Signs Temp Pulse Resp BP Pulse Ox 03/25/17 07:00 98.1 F 76 16 110/64 95 03/25/17 03:27 98.0 F 75 16 102/58 94 03/24/17 23:31 98.0 F 60 16 87/34 93 03/24/17 22:40 16 98 03/24/17 20:21 97.7 F 60 16 92/40 99 03/24/17 17:08 97.7 F 58 17 118/65 96 03/24/17 12:06 98.2 F 60 17 134/50 97 03/24/17 10:13 94 Intake and Output 03/24/17 03/25/17 03/25/17 23:59 07:59 15:59 Intake Total 450 / 450 400 / 400 Output Total 0 / 0 Balance 450 / 450 400 / 400 Intake: IV Fluids 300 / 300 300 / 300 Zyvox Premix 600mg/300mL 600 mg 300 / 300 300 / 300 In 300 ml @ 150 mls/hr IVPB Q12H [facility] Rx#:[id number] Oral 150 / 150 100 / 100 Output: Urine 0 / 0 Other: Blood Glucose* 163 162 - General Appearance General appearance: Present: well-developed, well-nourished, appears started age , obese EENT: Present: mucous membranes moist Neck: Present: no JVD Respiratory: Present: clear Cardiology: Present: no edema, regular rate, regular rhythm Gastrointestinal: Present: normoactive bowel sounds, no tenderness Integumentary: Present: warm and dry Neurologic: Present: alert and oriented x3 Psychiatric: Present: mood/affect appropriate, cooperative - Lab 03/24/17 09:45 03/24/17 09:45 Most recent lab results Calcium 8.9 mg/dL (8.6-10.8) 03/24/17 09:45 Magnesium 2.2 mg/dL (1.6-2.6) 03/21/17 02:58 Consult Discharge Plan - Plan Referrals: Velma Maldonado ULTIMATE HOOPS TRAINER [Primary Care Provider] - 04/01/17 1:00 pm (Please follow up as schedule...)
[2017-03-25] MEDS: Aspirin Enteric Coated 81 MG Tablet PO SCH (09:25)
[2017-03-25] MEDS: Thiamine (B-1) 100 MG TABLET PO SCH (09:25)
[2017-03-25] MEDS: Folic Acid 1 MG TABLET PO SCH (09:26)
[2017-03-25] MEDS: Furosemide 40 MG TABLET PO SCH ×2 (09:27→17:58)
[2017-03-25] MEDS: Sennosides/Docusate Sodium TABLET PO SCH ×2 (09:28→22:09)
[2017-03-25] MEDS ORDERED: 0.9 % Sodium Chloride 250 ML IVC PRN (09:46)
[2017-03-25] MEDS ORDERED: *HR* Heparin 10,000 UNIT/10 ML VIAL IV PRN (09:46)
[2017-03-25 10:24] LABS: Hematocrit 31.2 % (35.3-44.9); Hemoglobin 9.2 g/dL (11.5-15.4); Mean Corpuscular HGB Conc 29.5 g/dL (31.6-35.5); Mean Corpuscular Hemoglobin 32.5 pg (28.0-33.3); Mean Corpuscular Volume 110.2 fL (83.0-100.0); Mean Platelet Volume 10.1 fL (9.4-12.4); Platelet Count 187 K/mcL (140-400); Red Blood Count 2.83 M/mcL (3.82-4.97); Red Cell Distribution Width 13.2 % (11.5-14.5)
[2017-03-25] MEDS ORDERED: 0.9 % Sodium Chloride 2,000 ML ONE (11:00)
[2017-03-25 11:01] LABS: Calcium 8.7 mg/dL (8.6-10.8); Potassium 4.2 mEq/L (3.5-4.5)
[2017-03-25] MEDS: Linezolid 600 MG TABLET PO SCH ×2 (14:03→22:09)
--- NOTE | 2017-03-25 17:28 | Internal Med Progress Note ---
Date of Encounter: 03/25/17 Time of Encounter: 11:00 - Assessment and plan (1) UTI (urinary tract infection) Current Visit: No Status: Acute Assessment and plan: -Urine cultures positive for VRE Enteroccus faecium -Continue IV linezolid Qualifiers: Urinary tract infection type: acute cystitis Hematuria presence: without hematuria Qualified Code(s): N30.00 - Acute cystitis without hematuria (2) Metabolic encephalopathy Current Visit: No Status: Resolved Assessment and plan: -Resolved; suspect secondary to above (3) CHF (congestive heart failure) Current Visit: No Status: Chronic Assessment and plan: -Stable; continue home medications Qualifiers: Congestive heart failure type: diastolic Congestive heart failure chronicity: unspecified congestive heart failure chronicity Qualified Code(s) : I50.30 - Unspecified diastolic (congestive) heart failure (4) Essential (primary) hypertension Current Visit: No Status: Chronic Assessment and plan: -Controlled; continue home medications (5) End-stage renal disease on hemodialysis Current Visit: Yes Status: Chronic Assessment and plan: -Continue hemodialysis per nephrology (6) Elevated troponin Current Visit: No Status: Acute Assessment and plan: -Left heart catheterization showed nonobstructive coronary artery disease; continue medical management (7) DVT prophylaxis Current Visit: No Status: Acute Assessment and plan: -Subcutaneous heparin - Subjective Interval history: Patient with no issues or complaints this morning and no acute events overnight. - Constitutional Vitals: Temp Pulse Resp BP Pulse Ox 97.5 F L 75 18 143/71 99 03/25/17 14:38 03/25/17 14:38 03/25/17 13:25 03/25/17 14:38 03/25/17 12:00 General appearance: Present: A&O X 3, pleasant, no acute distress, answers questions appropriately - Respiratory Respiratory exam: Present: CTAB. Absent: accessory muscle use, rales, rhonchi, wheezes - Cardiovascular Cardiovascular exam: Present: RRR, +S1, +S2. Absent: diastolic murmur, gallop, rubs, systolic murmur Internal Medicine: Result - Labs CBC & Chem 7: 03/25/17 10:11 03/25/17 10:11 Labs: Short CBC 03/25/17 Range/Units 10:11 WBC 12.0 H (4.3-11.1) K/mcL Hgb 9.2 L (11.5-15.4) g/dL Hct 31.2 L (35.3-44.9) % Plt Count 187 (140-400) K/mcL BMP 03/25/17 10:11 Sodium 129 L Potassium 4.2 Chloride 94 L Carbon Dioxide 25 BUN 31 H Creatinine 4.94 H Glucose 187 H Calcium 8.7 - ABG Interpretation ABG results: PT/INR, D-dimer PT 13.2 Seconds (9.4-12.1) H 03/21/17 15:20 Consult Discharge Plan - Plan Referrals: Velma Maldonado CNP [Primary Care Provider] - 04/01/17 1:00 pm (Please follow up as schedule...)
[2017-03-26] MEDS: Insulin LISPRO 300 UNITS/3 ML VIAL SQ SCH ×4 (08:29→22:10)
[2017-03-26] MEDS: Linezolid 600 MG TABLET PO SCH ×2 (09:15→22:11)
[2017-03-26] MEDS: Sennosides/Docusate Sodium TABLET PO SCH ×2 (09:16→22:11)
[2017-03-26] MEDS: Thiamine (B-1) 100 MG TABLET PO SCH (09:16)
[2017-03-26] MEDS: Furosemide 40 MG TABLET PO SCH ×2 (09:16→17:36)
[2017-03-26] MEDS: Aspirin Enteric Coated 81 MG Tablet PO SCH (09:16)
[2017-03-26] MEDS: amLODIPine 5 MG TABLET PO SCH (09:16)
[2017-03-26] MEDS: Gabapentin 100 MG CAPSULE PO SCH ×3 (09:16→22:12)
[2017-03-26] MEDS: Folic Acid 1 MG TABLET PO SCH (09:16)
[2017-03-26] MEDS: Budesonide/Formoterol 160/4.5 MDI IH SCH ×2 (10:44→22:14)
--- NOTE | 2017-03-26 12:49 | Internal Med Progress Note ---
Date of Encounter: 03/26/17 Time of Encounter: 12:49 - Assessment and plan (1) CHF (congestive heart failure) Current Visit: Yes Status: Chronic Assessment and plan: -Stable; continue home medications Qualifiers: Congestive heart failure type: diastolic Congestive heart failure chronicity: unspecified congestive heart failure chronicity Qualified Code(s) : I50.30 - Unspecified diastolic (congestive) heart failure (2) Diabetes mellitus type 2, insulin dependent Current Visit: Yes Status: Chronic Assessment and plan: Continue insulin regimen continue blood sugar checks qACHS SSI as needed cont diabetic diet (3) Physical deconditioning Current Visit: Yes Status: Acute Assessment and plan: For SNF/ECF placement (4) End-stage renal disease on hemodialysis Current Visit: Yes Status: Chronic Assessment and plan: -Continue hemodialysis per nephrology (5) NSTEMI (non-ST elevated myocardial infarction) Current Visit: Yes Status: Ruled-out Assessment and plan: Ruled out No coronary artery occlusions elucidated on cath cardiology recommends f/u on OP basis heparin infusion discontinued (6) UTI (urinary tract infection) Current Visit: Yes Status: Acute Assessment and plan: VRE Day 3 of Zyvox, continue same Qualifiers: Urinary tract infection type: acute cystitis Hematuria presence: with hematuria Qualified Code(s): N30.01 - Acute cystitis with hematuria (7) Metabolic encephalopathy Current Visit: Yes Status: Resolved Assessment and plan: -Resolved; suspect secondary to above (8) Essential (primary) hypertension Current Visit: Yes Status: Chronic Assessment and plan: -Controlled; continue home medications - Subjective Interval history: Seen and evaluated at bedside No new complains, complained of loss of appetite - Constitutional Vitals: Temp Pulse Resp BP Pulse Ox 98 F 90 14 113/68 100 03/26/17 11:59 03/26/17 11:59 03/26/17 11:59 03/26/17 11:59 03/26/17 11:59 General appearance: Present: A&O X 3, pleasant, no acute distress, obese, answers questions appropriately - Head Head exam: Present: atraumatic, normocephalic - Eye Eye exam: Present: PERRL, conjuntiva pink, sclera anicteric Pupils: Present: PERRL - Neck Neck exam general surgery: Present: supple, trachea midline. Absent: lymphadenopathy Additional comments: CVC on chest wall clean and dry - Respiratory Respiratory exam: Present: CTAB. Absent: accessory muscle use, rales, rhonchi, wheezes - Cardiovascular Cardiovascular exam: Present: RRR, +S1, +S2. Absent: diastolic murmur, gallop, rubs, systolic murmur - GI/Abdominal GI/Abdominal exam: Present: normal bowel sounds, soft, no peritoneal signs. Absent: distended, tenderness - Extremities Exam Extremities exam: Present: warm, radial pulses palpable and symmetrical. Absent : calf tenderness, cyanotic, pedal edema - Neurological Exam Neurological exam: Present: alert, CN II-XII intact, oriented X3, no focal deficits. Absent: pronater drift, facial droop, speech deficit - Skin Skin exam: Present: dry, intact Internal Medicine: Result - Labs CBC & Chem 7: 03/25/17 10:11 03/25/17 10:11 - ABG Interpretation ABG results: PT/INR, D-dimer PT 13.2 Seconds (9.4-12.1) H 03/21/17 15:20 Consult Discharge Plan - Plan Referrals: Velma Maldonado PROGRAM DIR [Primary Care Provider] - 04/01/17 1:00 pm (Please follow up as schedule... Plan to go to [facility]. please cancel appt. when patient approve for ECF)
[2017-03-27 06:32] LABS: Hematocrit 29.8 % (35.3-44.9); Hemoglobin 8.7 g/dL (11.5-15.4); Mean Corpuscular HGB Conc 29.2 g/dL (31.6-35.5); Mean Corpuscular Hemoglobin 32.8 pg (28.0-33.3); Mean Corpuscular Volume 112.5 fL (83.0-100.0); Mean Platelet Volume 10.4 fL (9.4-12.4); Platelet Count 181 K/mcL (140-400); Red Blood Count 2.65 M/mcL (3.82-4.97); Red Cell Distribution Width 13.4 % (11.5-14.5)
[2017-03-27 06:46] LABS: Calcium 8.5 mg/dL (8.6-10.8)
[2017-03-27] MEDS: Budesonide/Formoterol 160/4.5 MDI IH SCH (08:02)
[2017-03-27] MEDS: Insulin LISPRO 300 UNITS/3 ML VIAL SQ SCH ×3 (08:10→16:36)
[2017-03-27] MEDS: Sennosides/Docusate Sodium TABLET PO SCH (08:10)
[2017-03-27] MEDS: Linezolid 600 MG TABLET PO SCH (08:10)
[2017-03-27] MEDS: Aspirin Enteric Coated 81 MG Tablet PO SCH (08:10)
[2017-03-27] MEDS: Folic Acid 1 MG TABLET PO SCH (08:10)
[2017-03-27] MEDS: Gabapentin 100 MG CAPSULE PO SCH ×2 (08:10→16:36)
[2017-03-27] MEDS: Thiamine (B-1) 100 MG TABLET PO SCH (08:10)
[2017-03-27] MEDS ORDERED: 0.9 % Sodium Chloride 250 ML IVC PRN (08:16)
--- NOTE | 2017-03-27 08:16 | Nephrology Progress Note ---
Date of Encounter: 03/27/17 Time of Encounter: 08:15 - Assessment and Plan (1) End-stage renal disease on hemodialysis Current Visit: Yes Status: Chronic Patient will undergo dialysis today. Hemoglobin is 8.7. She will be maintained on Aranesp. I anticipate discharge to a longterm in the near future. (2) Physical deconditioning Current Visit: Yes Status: Acute (3) Anemia, chronic disease Current Visit: No Status: Chronic Subjective Interval history: Patient reports she feels weak and tired. Otherwise she has no complaints. She denies any shortness of breath. She is scheduled for her usual dialysis today. She is in the process of having arrangements made to be discharged to an ECF. Objective - Vital Signs Vital signs: Vital Signs Temp Pulse Resp BP Pulse Ox 03/27/17 08:03 16 96 03/27/17 07:43 98.3 F 74 16 104/51 97 03/27/17 06:02 97.8 F 57 18 103/58 98 03/27/17 01:12 98.6 F 60 18 117/61 97 03/26/17 22:17 16 98 03/26/17 21:03 97.7 F 75 16 106/66 92 03/26/17 17:31 98.5 F 75 14 131/71 96 03/26/17 11:59 98 F 90 14 113/68 100 03/26/17 10:46 16 98 03/26/17 09:28 98 Intake and Output 03/26/17 03/27/17 03/27/17 23:59 07:59 15:59 Intake Total 150 / 150 100 / 100 Output Total 0 / 0 Balance 150 / 150 100 / 100 Intake: Oral 150 / 150 100 / 100 Output: Urine 0 / 0 Other: Meal CHON GOFF Weight 82 kg Blood Glucose* 183 144 Patient Weight 03/27/17 23:59 Weight 82 kg - General Appearance Exam: Patient is alert and oriented. She is in no acute distress. Lungs sounds otherwise clear. Heart regular rhythm. Abdomen is benign. There is mild lower extremity swelling. There is an immature AV fistula in the left upper extremity. There is a tunnel dialysis catheter in the right chest. - Lab 03/27/17 04:05 03/27/17 04:05 Most recent lab results Calcium 8.5 mg/dL (8.6-10.8) L 03/27/17 04:05 Magnesium 2.2 mg/dL (1.6-2.6) 03/21/17 02:58 Consult Discharge Plan - Plan Referrals: Velma Maldonado CNP [Primary Care Provider] - 04/01/17 1:00 pm (Please follow up as schedule... Plan to go to [facility]. please cancel appt. when patient approve for ECF)
[2017-03-27] MEDS ORDERED: Darbepoetin 100 MCG/0.5 ML SYRINGE SQ SCH (08:30)
--- NOTE | 2017-03-27 09:51 | Physician Discharge Referral ---
ExtendedCare Referral Info Transfer To: [facility] Provider in Charge: Trevor Platt Provider in Charge after Transfer: PCP Institutional Level of Care: Skilled - Diagnosis (1) CHF (congestive heart failure) Priority: Secondary Status: Chronic (2) Diabetes mellitus type 2, insulin dependent Priority: Secondary Status: Chronic (3) Physical deconditioning Priority: Primary Status: Acute (4) End-stage renal disease on hemodialysis Priority: Secondary Status: Chronic (5) NSTEMI (non-ST elevated myocardial infarction) Priority: Primary Status: Ruled-out (6) UTI (urinary tract infection) Priority: Primary Status: Acute (7) Metabolic encephalopathy Priority: Primary Status: Resolved (8) Essential (primary) hypertension Priority: Secondary Status: Chronic Prognosis: Good Aware of Diagnosis: Patient Aware of Prognosis: Patient - Transfer Medications Prescriptions: Gabapentin [Neurontin] 100 mg PO TID #15 capsule Home Medications: Aspirin [Adult Low Dose Aspirin EC] 81 mg PO DAILY 08/09/15 [History] Citalopram [CeleXA] 20 mg PO QAM 08/09/15 [History] Ferrous Sulfate 325 mg PO QAM 08/09/15 [History] Insulin NPH Hum/Reg Insulin Hm [Novolin 70-30 100 Unit/ml Vial] 10 unit SQ QPM 08/09/15 [History] Insulin NPH Hum/Reg Insulin Hm [Novolin 70-30 100 Unit/ml Vial] 15 unit SQ QAM 08/09/15 [History] Ipratropium/Albuterol Neb [Duoneb] 3 ml IH QID PRN 08/09/15 [History] [place]-3/Dha/Epa/Fish Oil [Fish Oil 1,000 mg Softgel] 1 each PO QPM 08/09/15 [ History] Pantoprazole Sodium [Protonix] 40 mg PO QAM 08/09/15 [History] Pravastatin Sodium [Pravachol] 80 mg PO QAM 08/09/15 [History] Thiamine HCl [Vitamin B-1] 50 mg PO QAM 08/09/15 [History] Vitamin E Mixed [Vitamin E] 400 unit PO QPM 08/09/15 [History] amLODIPine [Norvasc] 10 mg PO DAILY 30 Days tablet 08/18/15 [Rx] Midodrine [ProAmatine] 5 mg PO BID 01/20/17 [History] Ondansetron HCl 4 mg PO TID PRN 01/21/17 [History] Furosemide [Lasix] 80 mg PO BID #60 tablet 01/23/17 [Rx] Budesonide/Formoterol 160/4.5 [Symbicort 160/4.5] 2 puff IH BIDR 02/20/17 [ History] Nadolol [Corgard] 40 mg PO DAILY 02/20/17 [History] Docusate [Colace] 100 mg PO BID #60 capsule 03/17/17 [Rx] Darbepoetin [Aranesp] 100 mcg SQ QWEEK syringe 03/27/17 [Rx] Folic Acid 0.5 mg PO DAILY tablet 03/27/17 [Rx] Gabapentin [Neurontin] 100 mg PO TID #15 capsule 03/27/17 [Rx] Linezolid [Zyvox] 600 mg PO BID tablet 03/27/17 [Rx] Polyethylene Glycol 3350 [MiraLAX] 17 gm PO DAILY powd.pack 03/27/17 [Rx] Sennosides/Docusate Sodium [Senna Plus] 1 each PO BID tablet 03/27/17 [Rx] Allergies/Adverse Reactions: 3 Allergy/AdvReac Type Severity Reaction Status Date / Time Cyclobenzaprine Allergy Hives Verified 01/20/17 15:31 [From Flexeril] levofloxacin [From Levaquin] Allergy Hives Verified 01/20/17 15:31 rofecoxib [From Vioxx] Allergy Hives Verified 01/20/17 15:31 codeine AdvReac Difficulty Verified 01/20/17 15:31 [From Tylenol-Codeine #3] Breathing - Respiratory Orders Smoking Cessation: Smoking cessation has been advised. For more information, call the [place] Tobacco Quit Line at 0-489-NZIW-NOW. - Advance Directives Code Status: Full Code - Mobility Orders Other (per PT) - Diet Orders Renal CERTIFICATION: I certify that the transfer of the above named patient to an Extended Care Facility is necessary for the continuing treatment of the diagnosis listed. The above information is true and accurate reflection of patient's current condition. Confidential - Redisclosure prohibited without a patient's written consent.
--- NOTE | 2017-03-27 09:51 | Discharge Summary ---
Date of Encounter: 03/27/17 Time of Encounter: 09:51 - Discharge Diagnosis (1) CHF (congestive heart failure) Priority: Secondary Status: Chronic Qualifiers: Congestive heart failure type: diastolic Congestive heart failure chronicity: unspecified congestive heart failure chronicity Qualified Code(s) : I50.30 - Unspecified diastolic (congestive) heart failure (2) Diabetes mellitus type 2, insulin dependent Priority: Secondary Status: Chronic (3) Physical deconditioning Priority: Primary Status: Acute (4) End-stage renal disease on hemodialysis Priority: Secondary Status: Chronic (5) NSTEMI (non-ST elevated myocardial infarction) Priority: Primary Status: Ruled-out (6) UTI (urinary tract infection) Priority: Primary Status: Acute Qualifiers: Urinary tract infection type: acute cystitis Hematuria presence: with hematuria Qualified Code(s): N30.01 - Acute cystitis with hematuria (7) Metabolic encephalopathy Priority: Primary Status: Resolved (8) Essential (primary) hypertension Priority: Secondary Status: Chronic - Discharge Medications Prescriptions: Gabapentin [Neurontin] 100 mg PO TID #15 capsule Home Medications: Aspirin [Adult Low Dose Aspirin EC] 81 mg PO DAILY 08/09/15 [History] Ferrous Sulfate 325 mg PO QAM 08/09/15 [History] Insulin NPH Hum/Reg Insulin Hm [Novolin 70-30 100 Unit/ml Vial] 10 unit SQ QPM 08/09/15 [History] Insulin NPH Hum/Reg Insulin Hm [Novolin 70-30 100 Unit/ml Vial] 15 unit SQ QAM 08/09/15 [History] Ipratropium/Albuterol Neb [Duoneb] 3 ml IH QID PRN 08/09/15 [History] [place]-3/Dha/Epa/Fish Oil [Fish Oil 1,000 mg Softgel] 1 each PO QPM 08/09/15 [ History] Pantoprazole Sodium [Protonix] 40 mg PO QAM 08/09/15 [History] Pravastatin Sodium [Pravachol] 80 mg PO QAM 08/09/15 [History] Thiamine HCl [Vitamin B-1] 50 mg PO QAM 08/09/15 [History] Vitamin E Mixed [Vitamin E] 400 unit PO QPM 08/09/15 [History] amLODIPine [Norvasc] 10 mg PO DAILY 30 Days tablet 08/18/15 [Rx] Midodrine [ProAmatine] 5 mg PO BID 01/20/17 [History] Ondansetron HCl 4 mg PO TID PRN 01/21/17 [History] Furosemide [Lasix] 80 mg PO BID #60 tablet 01/23/17 [Rx] Budesonide/Formoterol 160/4.5 [Symbicort 160/4.5] 2 puff IH BIDR 02/20/17 [ History] Nadolol [Corgard] 40 mg PO DAILY 02/20/17 [History] Docusate [Colace] 100 mg PO BID #60 capsule 03/17/17 [Rx] Darbepoetin [Aranesp] 100 mcg SQ QWEEK syringe 03/27/17 [Rx] Folic Acid 0.5 mg PO DAILY tablet 03/27/17 [Rx] Gabapentin [Neurontin] 100 mg PO TID #15 capsule 03/27/17 [Rx] Linezolid [Zyvox] 600 mg PO BID tablet 03/27/17 [Rx] Polyethylene Glycol 3350 [MiraLAX] 17 gm PO DAILY powd.pack 03/27/17 [Rx] Sennosides/Docusate Sodium [Senna Plus] 1 each PO BID tablet 03/27/17 [Rx] Allergies/Adverse Reactions: 3 Allergy/AdvReac Type Severity Reaction Status Date / Time Cyclobenzaprine Allergy Hives Verified 01/20/17 15:31 [From Flexeril] levofloxacin [From Levaquin] Allergy Hives Verified 01/20/17 15:31 rofecoxib [From Vioxx] Allergy Hives Verified 01/20/17 15:31 codeine AdvReac Difficulty Verified 01/20/17 15:31 [From Tylenol-Codeine #3] Breathing Date of admission: 03/20/17 14:07 Primary care physician: Velma Maldonado CNP Consults: 03/21/17 07:27 Consult to Occupational Therapy [CONS] Routine Comment: Evaluate, develop and implement POC Reason for Consult: eval for ecf Consult to Physical Therapy [CONS] Routine Comment: Evaluate, develop and implement POC Reason for Consult: eval for ecf 03/21/17 09:22 Consult to Package Reinspector [CONS] Routine Reason for SW Consult: 76F lives with ; O2 & motorized chair dependence. Need for home health? 03/21/17 12:37 Consult to Cardiology [CONS] Routine Comment: Consulting Provider: Zachary Ayala Reason for Consult: increasing troponins with non-specific & non-specific EKG changes Call Completed: No 03/21/17 14:33 Consult to Cardiac Rehabilitation-Phase1 [CONS] Routine Comment: Reason for Consult: NSTEMI Call Completed: No 03/22/17 06:00 Consult to Dialysis [CONS] ONCE 03/25/17 10:00 Consult to Dialysis [CONS] ONCE 03/27/17 08:30 Consult to Dialysis [CONS] ONCE Discharging clinician: Jean Platt Anticipated date of discharge: 03/27/17 - Patient Status Disposition: Transfer SNF Condition: Fair Functional capacity at discharge: bed bound Overall status at discharge: patient is progressing back to baseline - Discharge Instructions Follow Up With: Velma Maldonado CNP [Primary Care Provider] - 04/01/17 1:00 pm (Please follow up as schedule... Plan to go to [facility]. please cancel appt. when patient approve for ECF) - Diet and Activity Activity: as per physical therapy, resume usual activities as tolerated Diet: diabetic diet, low salt diet, other (renal) Interval History: See below Hospital course: Ms. Hernandez is a 76 year old female with PMH of DM, HTN, ESRD on HD, , CHFpEF , Bed-bound at home She was admitted to [facility] and managed for Altered mental status secondary to metabolic encephalopathy, Hyponatremia, VRE UTI, Acute on chronic CHF exacerbation and Fluid overload. She also had elevated troponin 0.14, 0.75, 1.12, 1.25, 1.4.with concern for NSTEMI , however, she had a LHC which showed non-obstructive CAD She is no longer edematous from HD and negative fluid balance. , she has been maintained on her home dose of lasix and hemodialysis, her renal function has been stable Urine culture grew VRE sensitive to Zyvox, which she has been receiving, today is day 4/7 She will need to complete at least 7 days of Zyvox po for uncomplicated UTI Citalopram has been held in the meantime to decrease risk of Serotonin syndrome , SNF may resume per protocol after patient completes UTI treatment Recommend to monitor FS, resume patient's other medications Patient is significantly deconditioned, and physical therapy and occupational therapy have recommended inpatient rehab patient is medically cleared to be discharged to SNF/ECF - Time Spent with Patient Total time spent providing and/or coordinating discharge services: Greater than 30 minutes - Constitutional Vitals: Temp Pulse Resp BP Pulse Ox 98.3 F 74 16 104/51 96 03/27/17 07:43 03/27/17 07:43 03/27/17 08:03 03/27/17 07:43 03/27/17 08:03 General appearance: Present: A&O X 3, pleasant, no acute distress, obese, answers questions appropriately - Head Head exam: Present: atraumatic, normocephalic - Eye Eye exam: Present: PERRL, conjuntiva pink, sclera anicteric Pupils: Present: PERRL - Neck Neck exam general surgery: Present: supple, trachea midline. Absent: lymphadenopathy - Respiratory Respiratory exam: Present: CTAB. Absent: accessory muscle use, rales, rhonchi, wheezes - Cardiovascular Cardiovascular exam: Present: RRR, +S1, +S2. Absent: diastolic murmur, gallop, rubs, systolic murmur - GI/Abdominal GI/Abdominal exam: Present: normal bowel sounds, soft, no peritoneal signs. Absent: distended, tenderness - Extremities Exam Extremities exam: Present: warm, radial pulses palpable and symmetrical. Absent : calf tenderness, cyanotic, pedal edema - Neurological Exam Neurological exam: Present: alert, CN II-XII intact, oriented X3, no focal deficits. Absent: pronater drift, facial droop, speech deficit - Skin Skin exam: Present: dry
[2017-03-27] MEDS ORDERED: *HR* Heparin 10,000 UNIT/10 ML VIAL IV PRN (12:29)
[2017-03-27] MEDS ORDERED: 0.9 % Sodium Chloride 2,000 ML ONE (12:41)
[2017-03-27 13:33] VITALS: BP 152/55
[2017-03-27] MEDS: Furosemide 40 MG TABLET PO SCH ×2 (14:07→16:36)
[2017-03-27] MEDS: amLODIPine 5 MG TABLET PO SCH (14:22)
== END 2017-03-27 18:30 | DRG 689 ==
LOC: EMEROO 09:28 → 2ANU 09:28 → SUATTDRO 14:07 → 2ANU 03-21 23:37
PROVIDERS: ADMIT Hospitalist; ATTEND Internal Medicine